=== PATIENT | female | born 1980 | race Caucasian/White ===

== ENCOUNTER 2019-12-08 09:50 | Outpatient (REF) | payer OTHER, SELFPAY ==
--- NOTE | 2019-12-08 | US_ITS ---
EXAMINATION: ULTRASOUND RENAL BILATERAL CLINICAL INFORMATION: Renal calculi, follow-up. COMPARISON: KUB dated 11/19/2019 and renal ultrasound dated 10/30/2019. TECHNIQUE: Multiple 2-D grayscale and color Doppler ultrasound images of the kidneys were obtained. FINDINGS: Right kidney: 11.4 cm. No nephrolithiasis or hydronephrosis. Left: 11.6 cm. An upper pole anechoic cyst measures 0.8 cm. An interpolar echogenic focus measures a 0.4 cm. No hydronephrosis. IMPRESSION: 1. Previously seen right intrarenal calculi are no longer visualized. No hydronephrosis. 2. Nonobstructing interpolar left intrarenal calculus was not seen previously. Small left upper pole cyst demonstrates benign features without significant change.
== END 2019-12-08 09:51 | disposition home or self-care (01) ==
LOC: HO.HMGCX 09:50
PROVIDERS: PCP Internal Medicine; Visit Provider Urology
DX: N20.0 Calculus of kidney (principal)
CPT/HCPCS: 76775

== ENCOUNTER 2020-06-17 15:34 | Outpatient (REF) | payer OTHER, SELFPAY ==
--- NOTE | ~2020-06-17 | US_ITS ---
EXAMINATION: US RETROPERITONEAL LIMITED (RENAL ONLY) CLINICAL INFORMATION: Calculus of kidney. COMPARISON: Renal ultrasound 12/08/2019 and 10/30/2019. KUB 02/18/2020 and 04/23/2019. CT abdomen and pelvis 04/04/2019. TECHNIQUE: Real-time imaging of the kidneys. FINDINGS: RIGHT KIDNEY: There is mild right renal hydronephrosis. 12.6 x 5.2 x 6.6 cm (SAG x AP x TRV). The kidney is normal in size, contour, and echogenicity. Renal cortical thickness is normal. No focal parenchymal lesions. Echogenic foci likely nonobstructing stones in the one in the lower pole measure up to 4 mm, middle pole 3 mm. LEFT KIDNEY: 12.5 x 5.9 x 6.3 cm (SAG x AP x TRV). The kidney is normal in size, contour, and echogenicity. Renal cortical thickness is normal. No hydronephrosis. Multiple echogenic structures likely nonobstructing stones measuring up to 1 cm, 0.4 cm, 0.3 cm. US/US renal BI IMPRESSION: Mild right renal hydronephrosis. Bilateral echogenic foci likely nonobstructing stones..
== END 2020-06-17 15:35 | disposition home or self-care (01) ==
LOC: HO.HMGCX 15:34
PROVIDERS: PCP Internal Medicine; Visit Provider Urology
DX: N20.0 Calculus of kidney (principal)
CPT/HCPCS: 76775

== ENCOUNTER → 2020-06-29 15:19 | Outpatient (BNVA) | payer OTHER, SELFPAY | PROVIDERS: PCP Internal Medicine; Visit Provider Urology ==

== ENCOUNTER 2021-07-12 08:32 | Outpatient (REF) | payer OTHER, SELFPAY ==
--- NOTE | ~2021-07-12 | US_ITS ---
EXAMINATION: US RETROPERITONEAL LIMITED (RENAL ONLY) CLINICAL INFORMATION: Calculus of kidney. COMPARISON: Renal ultrasound 06/17/2020, renal ultrasound 12/08/2019, x-ray abdomen 11/19/2019, CT abdomen and pelvis 04/04/2019. TECHNIQUE: Real-time imaging of the kidneys. FINDINGS: RIGHT KIDNEY: 10.8 x 6.0 x 5.7 cm (SAG x AP x TRV). The kidney is normal in size, contour, and echogenicity. Renal cortical thickness is normal. No renal calculi or focal parenchymal lesions. There are multiple echogenic foci seen. No obvious stone. There is mild hydronephrosis seen. LEFT KIDNEY: 12.5 x 6.3 x 6.0 cm (SAG x AP x TRV). The kidney is normal in size, contour, and echogenicity. Renal cortical thickness is normal. There is anechoic cyst in the upper pole measuring 0.54 x 0.61 x 0.77 cm. There are 2 echogenic stones in midpole measuring 0.5 cm 0.3 x 0.71 cm and 0.28 x 0.21 x 0.37 cm. There is mild hydronephrosis seen. US/US renal BI IMPRESSION: At least 2 echogenic stones in the midpole left kidney. There is mild hydronephrosis. Small echogenic foci in the right kidney with mild hydronephrosis. Small cyst upper pole left kidney.
== END 2021-07-12 08:33 | disposition home or self-care (01) ==
LOC: HO.HMGCX 08:32
PROVIDERS: Visit Provider Urology
DX: N20.0 Calculus of kidney (principal)
CPT/HCPCS: 76775

== ENCOUNTER → 2021-08-09 15:06 | Outpatient (BNVA) | payer OTHER, SELFPAY | PROVIDERS: PCP Internal Medicine | DX: Z13.9 Encounter for screening, unspecified (principal); N20.0 Calculus of kidney ==

== ENCOUNTER 2021-08-11 08:44 | Outpatient (REF) | payer OTHER, SELFPAY | END 2021-08-11 08:45 | disposition home or self-care (01) | LOC: HO.HMGCLDS 08:44 | PROVIDERS: PCP Internal Medicine | DX: Z13.89 Encounter for screening for other disorder (principal) ==

== ENCOUNTER 2021-08-27 09:22 | Outpatient (REF) | payer OTHER, SELFPAY ==
[2021-08-31 15:06] LABS: Vitamin D 25-OH, D2 <4 ng/mL; Vitamin D 25-OH, D3 11 ng/mL; Vitamin D 25-OH, Total 11 ng/mL (30-100)
[2021-09-02 16:17] LABS: Parathyroid Hormone Related Pr 10 pg/mL (11-20)
== END 2021-08-27 09:23 | disposition home or self-care (01) ==
LOC: HO.LAB 09:22
PROVIDERS: PCP Internal Medicine
DX: N20.0 Calculus of kidney (principal)
CPT/HCPCS: 36415; 82306; 82310; 83519

== ENCOUNTER 2022-03-15 13:32 | Outpatient (REF) | payer BC, SELFPAY | END 2022-03-15 13:33 | disposition home or self-care (01) | LOC: HO.LAB 13:32 | PROVIDERS: PCP Internal Medicine; Visit Provider Nurse Practitioner Family | DX: N39.0 Urinary tract infection, site not specified (principal); N20.0 Calculus of kidney | CPT/HCPCS: 87086 ==

== ENCOUNTER 2022-04-25 08:34 | Outpatient (REF) | payer BC, SELFPAY ==
--- NOTE | ~2022-04-25 | US_ITS ---
EXAMINATION: US RETROPERITONEAL LIMITED (RENAL ONLY) CLINICAL INFORMATION: Calculus of kidney. COMPARISON: Renal ultrasound 07/12/2021 and 06/17/2020. X-ray KUB 11/19/2019 and 04/23/2019. CT abdomen and pelvis 04/04/2019. TECHNIQUE: Real-time imaging of the kidneys. FINDINGS: RIGHT KIDNEY: 11.4 x 6.0 x 5.4 cm (SAG x AP x TRV). The kidney is normal in size, contour, and echogenicity. Renal cortical thickness is normal. No calculi or focal parenchymal lesions. No hydronephrosis. Mild right hydronephrosis seen previously is not present. LEFT KIDNEY: 12.7 x 6.0 x 6.0 cm (SAG x AP x TRV). The kidney is normal in size, contour, and echogenicity. Renal cortical thickness is normal. Three echogenic foci are present in the mid kidney measuring from 4 to 7 mm in size consistent with nonobstructing calculi. There is however, some mild pelvocaliectasis present but the etiology is not ascertained. US/US renal BI IMPRESSION: 1. Left-sided renal calculi. 2. Mild left-sided pelvocaliectasis.
== END 2022-04-25 08:35 | disposition home or self-care (01) ==
LOC: HO.HMGCX 08:34
PROVIDERS: PCP Internal Medicine; Visit Provider Nurse Practitioner Family
DX: N20.0 Calculus of kidney (principal)
CPT/HCPCS: 76775

== ENCOUNTER → 2022-05-17 10:35 | Outpatient (BNVA) | payer BC, SELFPAY | PROVIDERS: PCP Internal Medicine; Visit Provider Nurse Practitioner Family | DX: N20.0 Calculus of kidney (principal) | CPT/HCPCS: 51798 ==

== ENCOUNTER 2022-10-30 08:34 | Outpatient (REF) | payer BC, SELFPAY ==
--- NOTE | ~2022-10-30 | US_ITS ---
EXAMINATION: US RETROPERITONEAL LIMITED (RENAL ONLY) CLINICAL INFORMATION: Calculus of kidney. COMPARISON: Ultrasound retroperitoneal limited (renal only) 04/25/2022 and 07/12/2021. X-ray abdomen KUB 11/19/2019 and 04/23/2019. CT abdomen and pelvis without contrast 04/04/2019. TECHNIQUE: Real-time imaging of the kidneys. Limited visualization due to bowel gas. FINDINGS: RIGHT KIDNEY: 11.2 x 5.4 x 6.7 cm (SAG x AP x TRV). Lower pole 0.4 cm and upper pole 0.4 cm renal calculi. Mild fullness right renal collecting system. Renal cortical thickness is normal. Limited visualization. LEFT KIDNEY: 13.0 x 6.5 x 5.8 cm (SAG x AP x TRV). Left renal 0.6 cm mid pole, 0.6 cm midpole and 0.3 cm lower pole calculi. Redemonstration of mild left pelvocaliectasis. Previously identified left renal upper pole cyst is not identified today, although visualization is limited due to bowel gas. US/US renal BI IMPRESSION: 1. Right renal calculi. Mild fullness right renal collecting system. 2. Redemonstration of mild fullness left renal collecting system. Left renal calculi again seen.
== END 2022-10-30 08:35 | disposition home or self-care (01) ==
LOC: HO.HMGCX 08:34
PROVIDERS: PCP Internal Medicine; Visit Provider Nurse Practitioner Family
DX: N20.0 Calculus of kidney (principal)
CPT/HCPCS: 76775

== ENCOUNTER 2022-11-16 14:33 | Outpatient (AMB) | payer BC, SELFPAY ==
--- NOTE | 2022-11-16 14:37 | MHC.OFFVIS ---
Intake Intake Visit Reasons: Renal stone- follow up/US(set) Intake Note: Patient is present for follow up Renal Stone/Ultrasound (imaging 10/30/22) Urology Medications: none Blood thinner: none Char Filter Operator Helper Required: No Accompanied by: Self / Same As Patient Allergies coconut Allergy (Intermediate, Verified 11/16/22 15:16) DIFFICULTY BREATHING/HIVES coconut Allergy (Unknown, Uncoded 11/16/22 15:16) Unknown Medication List - Last Reconciled 11/16/22 by ISABELL Garza albuterol sulfate 90 mcg/actuation inhalation atorvastatin 10 mg PO DAILY escitalopram oxalate 5 mg PO DAILY ibuprofen 0 mg PO metformin 500 mg PO BID montelukast 10 mg PO DAILY norethindrone acetate mg PO sertraline 100 mg PO DAILY HPI HPI Comments History of Present Illness Details Tiny is a pleasant 42-year-old female patient of Dr. Love. She presents to the office today for a follow up of her nephrolthiasis. Recent renal imaging results reviewed with the patient today. Right kidney with lower pole 0.4 cm and upper pole 0.4 cm renal calculi. Left kidney with redemonstration of 0.6 cm mid pole, 0.6 cm midpole and 0.3 cm lower pole calculi. When asked patient is reporting intermittent left-sided flank pain however no CVA tenderness noted on exam. She discusses her upcoming total hysterectomy the end of December. In office urinalysis results reviewed with the patient today. She otherwise denies urinary urgency, incontinence, nocturia, hematuria, dysuria, foul smelling urine, changes to urinary stream, flank pain, fever, and or chills. Discussed given intermittent flank pain can continue with surveillance monitoring versus surgical intervention. Discussed at length risks and benefits of surveillance monitoring verses surgical intervention. At this time patient discusses given intermittent flank pain she would like to move forward with surgical procedure. Discussed at length left-sided cystoscopy, retrograde, ureteroscopy, possible lithotripsy/stone basketing and stent. All questions were answered. She otherwise offers no other issues or concerns at this time. [facility] Medical History (Updated 11/19/22 @ 13:03 by ISABELL Garza) Hydronephrosis with ureteropelvic junction (UPJ) obstruction Surgical History History of surgery Review of Systems Const Reports as per HPI Eyes Reports no additional complaints ENT Reports no additional complaints Card Reports no additional complaints Resp Reports no additional complaints GI Reports as per HPI Reports as per HPI Neuro Reports no additional complaints Physical Exam Const General: cooperative, healthy appearing, comfortable, no acute distress, well developed, alert and awake Nutritional Appearance: overweight Orientation/consciousness: patient oriented x3 Limitations: no limitations HEENT Head: Yes normal to inspection, Yes normocephalic and Yes atraumatic Ears: hearing grossly normal bilaterally Neck Neck: Yes normal visual inspection and Yes trachea midline Chest Chest palpation & inspection: normal inspection of the chest Resp Effort & Inspection: normal respiratory effort and able to speak in complete sentences Cardio Rate: regular rate General: Yes no CVA tenderness Back/Spine/Pelvis Back: no CVA tenderness Neuro General: patient oriented x3 Extrem General: Yes normal to inspection Psych Appearance: grossly normal and well kempt Mental Status: mental status grossly normal Speech and movement: Normal speech and movement present and Clear speech present Affect: normal affect Attitude: cooperative Thought process: Normal thought process present Thought content: Normal thought content present Insight: Good insight present (Psych) Judgement: Good judgement present (Psych) Results AMB Urinalysis, Automated UA Leukoctes 0 Familia/uL Last Edit by [employer] Irizarry on 11/16/22 14:57 UA Nitrite Negative Last Edit by Andersemere Juan C on 11/16/22 14:57 UA Urobilinogen 0.2 mg/dL Last Edit by [employer] Juan C on 11/16/22 14:57 UA Protein 0 mg/dL Last Edit by [employer] Irizarry on 11/16/22 14:57 UA pH 6.0 Last Edit by E[employer] on 11/16/22 14:57 UA Blood 10 Talon/uL Last Edit by [employer] Juan C on 11/16/22 14:57 UA Specific [place] 1.010 Last Edit by [employer] Juan C on 11/16/22 14:57 UA Ketone Negative Last Edit by [employer] Juan C on 11/16/22 14:57 UA Bilirubin 0 mg/dL Last Edit by [employer] Juan C on 11/16/22 14:57 UA Glucose 0 mg/dL Last Edit by Mabel Irizarry on 11/16/22 14:57 Results Reviewed Results Reviewed: Laboratory Last Values Urine pH (Auto) 6.0 11/16/22 14:41 Specific [place] (Auto) 1.010 11/16/22 14:41 Urine Protein (Auto) 0 mg/dL 11/16/22 14:41 Glucose (UA)(Auto) 0 mg/dL 11/16/22 14:41 Urine Ketones (Auto) Negative 11/16/22 14:41 Urine Blood (Auto) 10 Talon/uL 11/16/22 14:41 Urine Nitrite (Auto) Negative 11/16/22 14:41 Urine Bilirubin (Auto) 0 mg/dL 11/16/22 14:41 Urine Urobilinogen (Auto) 0.2 mg/dL 11/16/22 14:41 Leukocyte Esterase (Auto) 0 Familia/uL 11/16/22 14:41 Date of Service: 10/30/22 EXAMINATION: US RETROPERITONEAL LIMITED (RENAL ONLY) FINDINGS: RIGHT KIDNEY: 11.2 x 5.4 x 6.7 cm (SAG x AP x TRV). Lower pole 0.4 cm and upper pole 0.4 cm renal calculi. Mild fullness right renal collecting system. Renal cortical thickness is normal. Limited visualization. LEFT KIDNEY: 13.0 x 6.5 x 5.8 cm (SAG x AP x TRV). Left renal 0.6 cm mid pole, 0.6 cm midpole and 0.3 cm lower pole calculi. Redemonstration of mild left pelvocaliectasis. Previously identified left renal upper pole cyst is not identified today, although visualization is limited due to bowel gas. IMPRESSION: 1. Right renal calculi. Mild fullness right renal collecting system. 2. Redemonstration of mild fullness left renal collecting system. Left renal calculi again seen. Assessment & Plan Assessment & Plan (1) Nephrolithiasis: Code(s): N20.0 - Calculus of kidney Plan: Ureteroscopy We discussed the nature of the decision and reasonable alternatives for performing ureteroscopy. Options such as medical therapy were discussed. Interventions include chemical dissolution, ESWL, ureteroscopy with laser lithotripsy and stent placement, PCNL. The relative uncertainties and benefits related to each alternate procedure were adequately discussed. General surgical risks including, but not limited to - pain, bleeding, infection, myocardial infarction, pulmonary embolus, deep vein thrombosis and cerebrovascular accident which may result in further hospitalization were discussed.? Full disclosure of the procedure as well as all major risks, benefits and complications were discussed including but not limited to damage to the urethra, bladder and kidney infection, damage to the ureter, stent migration or malposition, scarring to the renal pelvis, remnant stone fragments, subsequent stone passage with need for secondary procedures. The overall secondary procedure rate is approximately 10-15%.? The overall clearance rate is approximately 90-95%. Success of the procedure in the short-term does not necessarily guarantee that long-term success will be maintained. Suitable follow up will need to be maintained. The patient showed understanding of discussion and wishes to proceed with - cystoscopy, retrograde, ureteroscopy, possible lithotripsy/stone basketing and stent on the left side Plan In office urinalysis results reviewed with the patient today; as noted above. Recent renal imaging results reviewed with the patient today; as noted above. Discussed at length surveillance monitoring versus surgical intervention At this time patient wishes to proceed with surgical intervention given intermittent recurrent left-sided flank pain. Will schedule for left-sided - cystoscopy, retrograde, ureteroscopy, possible lithotripsy/stone basketing and stent. All questions were answered. Discussed, educated, encouraged on the importance of drinking plenty of water daily. Follow-up status post surgical procedure per Dr. Lynch's orders; or sooner with any issues, concerns, and or questions. Orders: Orders AMB Urinalysis Automated 11/16/22 Z13.9 - Encounter for screening, unspecified Patient Instructions: The patient had an opportunity to ask questions regarding the treatment plan. All questions were answered. Physical exam, labs, and imaging were discussed and reviewed in detail. As well as risks, benefits, and discussion of treatment choices. No major barriers to understanding were identified. The patient expressed understanding and agreement with the above treatment plan. The patient was made aware they should contact our office by phone for worsening of their current condition, the appearance of new symptoms, or with any questions or concerns. Compliance is encouraged with any medications and follow up testing that is ordered. It is a privilege to be allowed the opportunity to participate in? your urological care.? Again, if you have any questions or concerns If you have any questions or concerns please do not hesitate to contact me. The office is [phone]. This note is constructed using voice recognition software. While every effort has been made to ensure accuracy child support case officer errors may have been included. Yours sincerely, RONDA Garza-DALIA Coding Level of Care Code Est Pt Level 4 (99496) Diagnoses Nephrolithiasis N20.0
== END 2022-11-16 15:13 | disposition home or self-care (01) ==
PROVIDERS: PCP Internal Medicine; Visit Provider Nurse Practitioner Family
DX: N20.0 Calculus of kidney (principal)
CPT/HCPCS: 99214

== ENCOUNTER → 2022-11-16 14:33 | Outpatient (BNVA) | payer BC, SELFPAY | PROVIDERS: PCP Internal Medicine; Visit Provider Nurse Practitioner Family | DX: N20.0 Calculus of kidney (principal) | CPT/HCPCS: 81003 ==

== ENCOUNTER 2023-02-05 14:49 | Outpatient (AMB) | payer BC, OTHER, SELFPAY ==
--- NOTE | 2023-02-05 14:50 | MHC.OFFVIS ---
Intake Intake Visit Reasons: follow up after hysterectomy Intake Note: Patient is present for follow up to discuss surgery Urology Medications: none Blood thinner: none Needle Loom Operator Helper Required: No Accompanied by: Self / Same As Patient Allergies coconut Allergy (Intermediate, Verified 02/05/23 14:54) DIFFICULTY BREATHING/HIVES coconut Allergy (Unknown, Uncoded 02/05/23 14:54) Unknown Medication List - Last Reconciled 02/05/23 by ISABELL Garza albuterol sulfate 90 mcg/actuation inhalation atorvastatin 10 mg PO DAILY escitalopram oxalate 5 mg PO DAILY ibuprofen 0 mg PO lisinopril 20 mg PO DAILY metformin 500 mg PO BID montelukast 10 mg PO DAILY sertraline 100 mg PO DAILY HPI HPI Comments History of Present Illness Details Tiny is a pleasant 43-year-old female patient of Dr. Love. She is being follow-up on today via telehealth for her history of nephrolithiasis. In discussion with the patient today she reports to be doing and feeling well. She reports having recently recovered from her hysterectomy. When asked she continues to report intermittent bilateral flank pain left side greater than right. Previous renal imaging from 10/25 noting right kidney with lower pole 0.4 cm and upper pole 0.4 cm renal calculi. Left kidney with redemonstration of 0.6 cm mid pole, 0.6 cm midpole and 0.3 cm lower pole calculi. Discussed obtaining CT KUB for further assessment evaluation. She otherwise denies urinary urgency, incontinence, nocturia, hematuria, dysuria, foul smelling urine, changes to urinary stream, flank pain, fever, and or chills. Discussed possible surgical intervention versus surveillance monitoring however will obtain imaging for further assessment evaluation. [facility] Medical History Hydronephrosis with ureteropelvic junction (UPJ) obstruction Surgical History (Updated 02/05/23 @ 15:02 by ISABELL Garza) H/O: hysterectomy History of surgery Review of Systems Const Reports as per HPI Eyes Reports no additional complaints ENT Reports no additional complaints Card Reports no additional complaints Resp Reports no additional complaints GI Reports as per HPI Reports as per HPI Neuro Reports no additional complaints Physical Exam Const General: cooperative Resp Effort & Inspection: able to speak in complete sentences Psych Speech and movement: Clear speech present Attitude: cooperative Thought process: Normal thought process present Thought content: Normal thought content present Insight: Good insight present (Psych) Judgement: Good judgement present (Psych) Assessment & Plan Assessment & Plan (1) Nephrolithiasis: Code(s): N20.0 - Calculus of kidney (2) Flank pain: Code(s): R10.9 - Unspecified abdominal pain Plan Patient with a history of nephrolithiasis and continues with intermittent flank pain. Will obtain CT KUB for further assessment evaluation as previous imaging from 10/25. Discussed possible near future surgical intervention regarding nephrolithiasis however will await CT KUB results for further assessment evaluation. Educated, stress, and encouraged on the importance of drinking plenty of water daily. Follow-up in 2-4 weeks with imaging to be completed prior; or sooner with any issues, concerns, and or questions. Patient Instructions: The patient had an opportunity to ask questions regarding the treatment plan. All questions were answered. Physical exam, labs, and imaging were discussed and reviewed in detail. As well as risks, benefits, and discussion of treatment choices. No major barriers to understanding were identified. The patient expressed understanding and agreement with the above treatment plan. The patient was made aware they should contact our office by phone for worsening of their current condition, the appearance of new symptoms, or with any questions or concerns. Compliance is encouraged with any medications and follow up testing that is ordered. It is a privilege to be allowed the opportunity to participate in? your urological care.? Again, if you have any questions or concerns If you have any questions or concerns please do not hesitate to contact me. The office is [phone]. This note is constructed using voice recognition software. While every effort has been made to ensure accuracy boat driver errors may have been included. Yours sincerely, ELIEZER Garza Telehealth Telehealth Location of provider rendering services: practice address Location of patient: address on file Patient Identification confirmed using: Name, : Yes Telehealth method: voice only Patient verbally consented to treatment: Yes Patient verbally consented to billing insurance company: Yes Patient informed of any privacy concerns related to visit: Yes Minutes spent on Phone/Video with Pt.: 15 Coding Level of Care Code Tele Est Pt Level 3 (80287) Diagnoses Nephrolithiasis N20.0 Flank pain R10.9
== END 2023-02-05 15:10 | disposition home or self-care (01) ==
LOC: HO.HUSH 14:49
PROVIDERS: PCP Internal Medicine; Visit Provider Nurse Practitioner Family
DX: N20.0 Calculus of kidney (principal); R10.9 Unspecified abdominal pain
CPT/HCPCS: 99442

== ENCOUNTER → 2023-02-05 14:49 | Outpatient (BNVA) | payer BC, SELFPAY | PROVIDERS: PCP Internal Medicine; Visit Provider Nurse Practitioner Family ==

== ENCOUNTER 2023-03-13 07:54 | Outpatient (REF) | payer BC, OTHER, SELFPAY ==
--- NOTE | ~2023-03-13 | CT_ITS ---
EXAMINATION: CT ABDOMEN AND PELVIS WITHOUT CONTRAST CLINICAL INFORMATION: Renal calculus COMPARISON: CT of 04/04/2019 and renal ultrasound of 10/22/2022 TECHNIQUE: Multidetector volumetric imaging was performed of the abdomen and pelvis without contrast. Sagittal and coronal reformatted images were obtained on the technologist's workstation. This CT examination was performed using dose optimization techniques as appropriate, variously including the following: *Automated exposure control *Adjustment of mA and/or kV according to patient size (this includes techniques or standardized protocols for targeted exams where dose is matched to indication/reason for exam; i.e. extremities or head) *Use of iterative reconstruction technique DLP: 1120 mGy-cm FINDINGS: LUNG BASES: The visualized lung bases are unremarkable. LIVER, GALLBLADDER, AND BILIARY TREE: The liver is diffusely low in density and moderately enlarged measuring at least 20 cm long consistent with steatosis. No biliary ductal dilatation or parenchymal mass is evident. The gallbladder is unremarkable with no evidence of radiopaque gallstones, gallbladder wall thickening, or obvious pericholecystic inflammatory changes. PANCREAS: Unremarkable SPLEEN: Mildly enlarged measuring 14.7 cm ADRENAL GLANDS: Unremarkable KIDNEYS AND URETERS: There are several adjacent small calculi in the left renal lower pole collecting system, each measuring approximately 4 mm. A 1 mm nonobstructing calculus is evident in the right renal midpole. The previously seen right ureteropelvic junction obstructing calculus is no longer visualized. There is no acute acute obstructive uropathy. The ureters are collapsed. BLADDER: Unremarkable GASTROINTESTINAL TRACT: There is a small sliding hiatal hernia. The small and large bowel are unremarkable. The appendix is unremarkable. ABDOMINAL WALL: A small fat-containing ventral abdominal wall hernia is present. LYMPH NODES: Normal VASCULAR: Unremarkable PELVIC VISCERA: Unremarkable OSSEOUS STRUCTURES: Unremarkable CT/CT kidney stone IMPRESSION: 1. Several nonobstructing left renal mid pole calculi. Previously seen right obstructing ureteral pelvic junction calculus is no longer evident. 2. Hepatosplenomegaly and marked hepatic steatosis. Fleischner guidelines were followed.
== END 2023-03-13 07:55 | disposition home or self-care (01) ==
LOC: HO.CT 07:54
PROVIDERS: PCP Internal Medicine; Visit Provider Nurse Practitioner Family
DX: N20.0 Calculus of kidney (principal)
CPT/HCPCS: 74176

== ENCOUNTER 2023-04-06 08:43 | Outpatient (AMB) | payer BC, OTHER, SELFPAY ==
--- NOTE | 2023-04-06 09:03 | MHC.OFFVIS ---
Intake Intake Visit Reasons: Follow up CT Scan Kidney Stone(set) Intake Note: Patient presents for tele visit follow up Kidney Stone and CT Scan Results Imagin03/13/23 Urology Medications: none Blood Thinner: none Counselling Psychologist Required: No Accompanied by: Self / Same As Patient Allergies coconut Allergy (Intermediate, Verified 04/07/23 20:56) DIFFICULTY BREATHING/HIVES coconut Allergy (Unknown, Uncoded 04/07/23 20:56) Unknown Medication List - Last Reconciled 04/07/23 by ISABELL Garza albuterol sulfate 90 mcg/actuation inhalation atorvastatin 10 mg PO DAILY escitalopram oxalate 5 mg PO DAILY ibuprofen 0 mg PO lisinopril 20 mg PO DAILY metformin 500 mg PO BID montelukast 10 mg PO DAILY pyridoxine (vitamin B6) 100 mg PO DAILY 90 days sertraline 100 mg PO DAILY HPI HPI Comments History of Present Illness Details Tiny is a pleasant 43-year-old female patient of Dr. Love. She is being follow-up on today via telehealth for her history of nephrolithiasis. In discussion with the patient today she reports to be doing and feeling well. Of note, patient was seen approximately 1 month ago for longstanding history of nephrolithiasis at which time a CT KUB was ordered for further assessment evaluation. These results reviewed with the patient today. There are several small calculi in the left renal pole each measuring approximately 4 mm. A 1 mm nonobstructing calculus is in the right mid pole. Previously seen right UVJ obstruction calculus is no longer visualized. There is no acute obstructive uropathy. The bladder is unremarkable. Discussed at length further treatment options with surgical intervention versus surveillance monitoring. Patient currently denies any bothersome urinary issues or concerns. She denies urinary urgency, incontinence, nocturia, hematuria, dysuria, foul smelling urine, changes to urinary stream, flank pain, fever, and or chills. She discusses at length her recovery from her recent hysterectomy. She otherwise offers no other issues or concerns at time. COUNTS INCLUDE 234 BEDS AT THE [facility] Medical History Hydronephrosis with ureteropelvic junction (UPJ) obstruction Surgical History H/O: hysterectomy History of surgery Review of Systems Const Reports as per HPI Eyes Reports no additional complaints ENT Reports no additional complaints Card Reports no additional complaints Resp Reports no additional complaints GI Reports as per HPI Reports as per HPI Neuro Reports no additional complaints Physical Exam Const General: cooperative Orientation/consciousness: patient oriented x3 Resp Effort & Inspection: able to speak in complete sentences Neuro General: patient oriented x3 Psych Speech and movement: Clear speech present Attitude: cooperative Thought process: Normal thought process present Thought content: Normal thought content present Insight: Fair insight present (Psych) Judgement: Fair judgement present (Psych) Results Reviewed Results Reviewed: Date of Service: 03/13/23 EXAMINATION: CT ABDOMEN AND PELVIS WITHOUT CONTRAST FINDINGS: LUNG BASES: The visualized lung bases are unremarkable. LIVER, GALLBLADDER, AND BILIARY TREE: The liver is diffusely low in density and moderately enlarged measuring at least 20 cm long consistent with steatosis. No biliary ductal dilatation or parenchymal mass is evident. The gallbladder is unremarkable with no evidence of radiopaque gallstones, gallbladder wall thickening, or obvious pericholecystic inflammatory changes. PANCREAS: Unremarkable SPLEEN: Mildly enlarged measuring 14.7 cm ADRENAL GLANDS: Unremarkable KIDNEYS AND URETERS: There are several adjacent small calculi in the left renal lower pole collecting system, each measuring approximately 4 mm. A 1 mm nonobstructing calculus is evident in the right renal midpole. The previously seen right ureteropelvic junction obstructing calculus is no longer visualized. There is no acute acute obstructive uropathy. The ureters are collapsed. BLADDER: Unremarkable GASTROINTESTINAL TRACT: There is a small sliding hiatal hernia. The small and large bowel are unremarkable. The appendix is unremarkable. ABDOMINAL WALL: A small fat-containing ventral abdominal wall hernia is present. LYMPH NODES: Normal VASCULAR: Unremarkable PELVIC VISCERA: Unremarkable OSSEOUS STRUCTURES: Unremarkable IMPRESSION: 1. Several nonobstructing left renal mid pole calculi. Previously seen right obstructing ureteral pelvic junction calculus is no longer evident. 2. Hepatosplenomegaly and marked hepatic steatosis. Assessment & Plan Assessment & Plan (1) Nephrolithiasis: Code(s): N20.0 - Calculus of kidney Plan Recent CT KUB results reviewed with the patient today; as noted above. Patient currently denies any bothersome urinary issues or concerns. Discussed at length surveillance monitoring verses further surgical intervention regarding nonobstructing small renal calculi Discussed, educated, and stressed the importance of drinking plenty of water daily. Discussed adding 1 oz of lemon juice to water daily. Start vitamin B6 as discussed and prescribed. Will obtain renal ultrasound in 6 months. Discussed further metabolic workup with 24 hour urine collection and labs; however patient declines at this time would like to continue with surveillance monitoring. Follow-up in 6 months with imaging to be completed prior; or sooner with any issues, concerns, and or questions. Orders: Orders US renal BI 6 Months N20.0 - Calculus of kidney Medications: New pyridoxine (vitamin B6) 100 mg PO DAILY 90 days 90 tabs 1RF Patient Instructions: The patient had an opportunity to ask questions regarding the treatment plan. All questions were answered. Physical exam, labs, and imaging were discussed and reviewed in detail. As well as risks, benefits, and discussion of treatment choices. No major barriers to understanding were identified. The patient expressed understanding and agreement with the above treatment plan. The patient was made aware they should contact our office by phone for worsening of their current condition, the appearance of new symptoms, or with any questions or concerns. Compliance is encouraged with any medications and follow up testing that is ordered. It is a privilege to be allowed the opportunity to participate in? your urological care.? Again, if you have any questions or concerns If you have any questions or concerns please do not hesitate to contact me. The office is [phone]. This note is constructed using voice recognition software. While every effort has been made to ensure accuracy olive grader errors may have been included. Yours sincerely, [place] [facility] Location of provider rendering services: practice address Location of patient: address on file Patient Identification confirmed using: Name, : Yes Telehealth method: voice only Patient verbally consented to treatment: Yes Patient verbally consented to billing insurance company: Yes Patient informed of any privacy concerns related to visit: Yes Minutes spent on Phone/Video with Pt.: 20 Coding Level of Care Code Tele Est Pt Level 4 (39965) Diagnoses Nephrolithiasis N20.0
== END 2023-04-06 10:05 | disposition home or self-care (01) ==
PROVIDERS: PCP Internal Medicine; Visit Provider Nurse Practitioner Family
DX: N20.0 Calculus of kidney (principal)
CPT/HCPCS: 99442

== ENCOUNTER → 2023-04-06 08:43 | Outpatient (BNVA) | payer BC, SELFPAY | PROVIDERS: PCP Internal Medicine; Visit Provider Nurse Practitioner Family ==

== ENCOUNTER 2023-10-23 09:02 | Outpatient (REF) | payer BC, SELFPAY ==
--- NOTE | ~2023-10-23 | US_ITS ---
EXAMINATION: US RETROPERITONEAL COMPLETE (RENAL) CLINICAL INFORMATION: Calculus of kidney. COMPARISON: CT stone study 03/13/2023. TECHNIQUE: Real-time imaging of the kidneys . FINDINGS: RIGHT KIDNEY: 11.6 x 5.7 x 4.7 cm (SAG x AP x TRV). The kidney is normal in size, contour, and echogenicity. Renal cortical thickness is normal. No focal parenchymal lesions. There is a 4 x 3 x 5 mm mid renal echogenic focus with twinkle artifact consistent with a nonobstructing calculus. No hydronephrosis. LEFT KIDNEY: 12.9 x 5.8 x 5.8 cm (SAG x AP x TRV). The kidney is normal in size, contour, and echogenicity. Renal cortical thickness is normal. No focal parenchymal lesions. There is a mid renal echogenic focus measuring 5 mm and an upper pole 3 mm echogenic focus both with twinkle artifact consistent with nonobstructing calculi. No hydronephrosis. US/US renal BI IMPRESSION: Bilateral nonobstructing renal calculi. Electronically signed by: Gerardo Collier MD 11/06/2023 12:35 AM EDT
== END 2023-10-23 09:03 | disposition home or self-care (01) ==
LOC: HO.HMGCX 09:02
PROVIDERS: PCP Internal Medicine; Visit Provider Nurse Practitioner Family
DX: N20.0 Calculus of kidney (principal)
CPT/HCPCS: 76775

== ENCOUNTER 2023-11-13 14:09 | Outpatient (AMB) | payer BC, SELFPAY ==
--- NOTE | 2023-11-13 14:28 | A.OFFVIS_ITS ---
Intake Visit Reasons: 6M/FU Intake Note: Patient presents for tele visit follow up Kidney Stone and CT Scan Results Imagin10/23/23 Urology Medications: none Blood Thinner: none Chemic Mangler Required: No Accompanied by: Self / Same As Patient Allergies coconut Allergy (Intermediate, Verified 11/13/23 14:51) DIFFICULTY BREATHING/HIVES coconut Allergy (Unknown, Uncoded 11/13/23 14:51) Unknown Medication List - Last Reconciled 11/13/23 by ISABELL Garza albuterol sulfate 90 mcg/actuation inhalation atorvastatin 10 mg PO DAILY lisinopril 20 mg PO DAILY sertraline 100 mg PO DAILY HPI Comments Details: Tiny is a pleasant 43-year-old female patient of Dr. Love. She presents to the office today for follow-up of her nephrolithiasis. In discussion with the patient today she reports to be doing and feeling well. She discusses having followed up with her PCP and has recently changed her metformin to Jardiance for ongoing GI issues she had been experiencing. She currently denies any bothersome urinary issues or concerns. Recent renal imaging results reviewed with the patient today. Bilateral kidneys with no lesions or hydronephrosis. Right kidney with 5 mm mid renal nonobstructing calculus. Left kidney with 5 mm upper pole and 3 mm mid renal echogenic focus consistent with nonobstructing renal calculi. Discussed at length potential causes of nephrolithiasis. In office urinalysis results reviewed with the patient today. She denies urinary urgency, incontinence, nocturia, hematuria, dysuria, foul smelling urine, changes to urinary stream, flank pain, fever, and or chills. She otherwise offers no other issues or concerns at time. [facility] Medical History Hydronephrosis with ureteropelvic junction (UPJ) obstruction Surgical History H/O: hysterectomy History of surgery Review of Systems Const Reports as per HPI Eyes Reports no additional complaints ENT Reports no additional complaints Card Reports no additional complaints Resp Reports no additional complaints GI Reports as per HPI Reports as per HPI Neuro Reports no additional complaints Physical Exam Const General: cooperative, healthy appearing, comfortable, no acute distress, well developed, alert and awake Nutritional Appearance: overweight Orientation/consciousness: patient oriented x3 Limitations: no limitations HEENT Head: Yes normal to inspection, Yes normocephalic and Yes atraumatic Ears: hearing grossly normal bilaterally Neck Neck: Yes normal visual inspection and Yes trachea midline Chest Chest palpation & inspection: normal inspection of the chest Resp Effort & Inspection: normal respiratory effort and able to speak in complete sentences Cardio Rate: regular rate General: Yes no CVA tenderness Back/Spine/Pelvis Back: no CVA tenderness Neuro General: patient oriented x3 Extrem General: Yes normal to inspection Psych Appearance: grossly normal and well kempt Mental Status: mental status grossly normal Speech and movement: Normal speech and movement present and Clear speech present Affect: normal affect Attitude: cooperative Thought process: Normal thought process present Thought content: Normal thought content present Insight: Fair insight present (Psych) Judgement: Fair judgement present (Psych) Results AMB Urinalysis, Automated UA Leukoctes 0 Familia/uL Last Edit by [facility] on 11/13/23 15:04 UA Nitrite Last Edit by [facility] on 11/13/23 15:04 UA Urobilinogen 0.2 mg/dL Last Edit by [facility] on 11/13/23 15:04 UA Protein 0 mg/dL Last Edit by [facility] on 11/13/23 15:04 UA pH 6.0 Last Edit by [facility] on 11/13/23 15:04 UA Blood 0 Talon/uL Last Edit by [facility] on 11/13/23 15:04 UA Specific Roy 1.015 Last Edit by [facility] on 11/13/23 15:04 UA Ketone Last Edit by [facility] on 11/13/23 15:04 UA Bilirubin 0 mg/dL Last Edit by [facility] on 11/13/23 15:04 UA Glucose 1000 mg/dL Last Edit by [facility] on 11/13/23 15:04 Results Reviewed Results Reviewed: Laboratory Last Values Urine pH (Auto) 6.0 11/13/23 14:58 Specific Roy (Auto) 1.015 11/13/23 14:58 Urine Protein (Auto) 0 mg/dL 11/13/23 14:58 Glucose (UA)(Auto) 1000 mg/dL 11/13/23 14:58 Urine Blood (Auto) 0 Talon/uL 11/13/23 14:58 Urine Bilirubin (Auto) 0 mg/dL 11/13/23 14:58 Urine Urobilinogen (Auto) 0.2 mg/dL 11/13/23 14:58 Leukocyte Esterase (Auto) 0 Familia/uL 11/13/23 14:58 Date of Service: 10/23/23 EXAMINATION: US RETROPERITONEAL COMPLETE (RENAL) FINDINGS: RIGHT KIDNEY: 11.6 x 5.7 x 4.7 cm (SAG x AP x TRV). The kidney is normal in size, contour, and echogenicity. Renal cortical thickness is normal. No focal parenchymal lesions. There is a 4 x 3 x 5 mm mid renal echogenic focus with twinkle artifact consistent with a nonobstructing calculus. No hydronephrosis. LEFT KIDNEY: 12.9 x 5.8 x 5.8 cm (SAG x AP x TRV). The kidney is normal in size, contour, and echogenicity. Renal cortical thickness is normal. No focal parenchymal lesions. There is a mid renal echogenic focus measuring 5 mm and an upper pole 3 mm echogenic focus both with twinkle artifact consistent with nonobstructing calculi. No hydronephrosis. IMPRESSION: Bilateral nonobstructing renal calculi. Assessment & Plan Assessment & Plan (1) Nephrolithiasis: Code(s): N20.0 - Calculus of kidney Category: Medical Plan In office urinalysis results reviewed with the patient today; as noted above. Recent renal imaging results reviewed with the patient today; as noted above. She currently denies any bothersome urinary issues or concerns She reports be happy with current voiding parameters. Discussed, educated, and stressed the importance of adequate hydration relation to nephrolithiasis as well as overall health and well-being. Discussed adding 1 oz of lemon juice to water daily. Discussed possible near future vitamin B6. Discussed at length potential causes of nephrolithiasis Discussed metabolic workup with 24 hour urine collection and labs Will obtain renal ultrasound in 6 months. Follow-up in 6 months with imaging to be completed prior; or sooner with any issues, concerns, and or questions. Orders: Orders US renal BI 6 Months N20.0 - Calculus of kidney AMB Urinalysis Automated Today Z13.9 - Encounter for screening, unspecified Patient Instructions: The patient had an opportunity to ask questions regarding the treatment plan. All questions were answered. Physical exam, labs, and imaging were discussed and reviewed in detail. As well as risks, benefits, and discussion of treatment choices. No major barriers to understanding were identified. The patient expressed understanding and agreement with the above treatment plan. The patient was made aware they should contact our office by phone for worsening of their current condition, the appearance of new symptoms, or with any questions or concerns. Compliance is encouraged with any medications and follow up testing that is ordered. It is a privilege to be allowed the opportunity to participate in? your urological care.? Again, if you have any questions or concerns If you have any questions or concerns please do not hesitate to contact me. The office is [phone]. This note is constructed using voice recognition software. While every effort has been made to ensure accuracy cloth worker errors may have been included. Yours sincerely, ISABELL Garza Coding Level of Care Code Est Pt Level 3 (38349) Diagnoses Nephrolithiasis N20.0
--- NOTE | 2023-11-13 14:57 | MHC.OFFVIS ---
Intake Visit Reasons: 6M/FU Allergies coconut Allergy (Intermediate, Verified 11/13/23 14:51) DIFFICULTY BREATHING/HIVES coconut Allergy (Unknown, Uncoded 11/13/23 14:51) Unknown Medication List - Last Reconciled 11/13/23 by ISABELL Garza albuterol sulfate 90 mcg/actuation inhalation atorvastatin 10 mg PO DAILY lisinopril 20 mg PO DAILY sertraline 100 mg PO DAILY HPI Comments Details: Tiny is a pleasant 43-year-old female patient of Dr. Love. She presents to the office today for follow-up of her nephrolithiasis. In discussion with the patient today she reports to be doing and feeling well. She discusses having followed up with her PCP and has recently changed her metformin to Jardiance for ongoing GI issues she had been experiencing. She currently denies any bothersome urinary issues or concerns. Recent renal imaging results reviewed with the patient today. Bilateral kidneys with no lesions or hydronephrosis. Right kidney with 5 mm mid renal nonobstructing calculus. Left kidney with 5 mm upper pole and 3 mm mid renal echogenic focus consistent with nonobstructing renal calculi. Discussed at length potential causes of nephrolithiasis. In office urinalysis results reviewed with the patient today. She denies urinary urgency, incontinence, nocturia, hematuria, dysuria, foul smelling urine, changes to urinary stream, flank pain, fever, and or chills. She otherwise offers no other issues or concerns at time. [facility] Medical History Hydronephrosis with ureteropelvic junction (UPJ) obstruction Surgical History H/O: hysterectomy History of surgery Review of Systems Const Reports as per HPI Eyes Reports no additional complaints ENT Reports no additional complaints Card Reports no additional complaints Resp Reports no additional complaints GI Reports as per HPI Reports as per HPI Neuro Reports no additional complaints Physical Exam Const General: cooperative, healthy appearing, comfortable, no acute distress, well developed, alert and awake Nutritional Appearance: overweight Orientation/consciousness: patient oriented x3 Limitations: no limitations HEENT Head: Yes normal to inspection, Yes normocephalic and Yes atraumatic Ears: hearing grossly normal bilaterally Neck Neck: Yes normal visual inspection and Yes trachea midline Chest Chest palpation & inspection: normal inspection of the chest Resp Effort & Inspection: normal respiratory effort and able to speak in complete sentences Cardio Rate: regular rate General: Yes no CVA tenderness Back/Spine/Pelvis Back: no CVA tenderness Neuro General: patient oriented x3 Extrem General: Yes normal to inspection Psych Appearance: grossly normal and well kempt Mental Status: mental status grossly normal Speech and movement: Normal speech and movement present and Clear speech present Affect: normal affect Attitude: cooperative Thought process: Normal thought process present Thought content: Normal thought content present Insight: Fair insight present (Psych) Judgement: Fair judgement present (Psych) Results Reviewed Results Reviewed: Date of Service: 10/23/23 EXAMINATION: US RETROPERITONEAL COMPLETE (RENAL) FINDINGS: RIGHT KIDNEY: 11.6 x 5.7 x 4.7 cm (SAG x AP x TRV). The kidney is normal in size, contour, and echogenicity. Renal cortical thickness is normal. No focal parenchymal lesions. There is a 4 x 3 x 5 mm mid renal echogenic focus with twinkle artifact consistent with a nonobstructing calculus. No hydronephrosis. LEFT KIDNEY: 12.9 x 5.8 x 5.8 cm (SAG x AP x TRV). The kidney is normal in size, contour, and echogenicity. Renal cortical thickness is normal. No focal parenchymal lesions. There is a mid renal echogenic focus measuring 5 mm and an upper pole 3 mm echogenic focus both with twinkle artifact consistent with nonobstructing calculi. No hydronephrosis. IMPRESSION: Bilateral nonobstructing renal calculi. Assessment & Plan Assessment & Plan (1) Nephrolithiasis: Code(s): N20.0 - Calculus of kidney Category: Medical Plan In office urinalysis results reviewed with the patient today; as noted above. Recent renal imaging results reviewed with the patient today; as noted above. She currently denies any bothersome urinary issues or concerns She reports be happy with current voiding parameters. Discussed, educated, and stressed the importance of adequate hydration relation to nephrolithiasis as well as overall health and well-being. Discussed adding 1 oz of lemon juice to water daily. Discussed possible near future vitamin B6. Discussed at length potential causes of nephrolithiasis Discussed metabolic workup with 24 hour urine collection and labs Will obtain renal ultrasound in 6 months. Follow-up in 6 months with imaging to be completed prior; or sooner with any issues, concerns, and or questions. Orders: Orders US renal BI 6 Months N20.0 - Calculus of kidney AMB Urinalysis Automated Today Z13.9 - Encounter for screening, unspecified Patient Instructions: The patient had an opportunity to ask questions regarding the treatment plan. All questions were answered. Physical exam, labs, and imaging were discussed and reviewed in detail. As well as risks, benefits, and discussion of treatment choices. No major barriers to understanding were identified. The patient expressed understanding and agreement with the above treatment plan. The patient was made aware they should contact our office by phone for worsening of their current condition, the appearance of new symptoms, or with any questions or concerns. Compliance is encouraged with any medications and follow up testing that is ordered. It is a privilege to be allowed the opportunity to participate in? your urological care.? Again, if you have any questions or concerns If you have any questions or concerns please do not hesitate to contact me. The office is [phone]. This note is constructed using voice recognition software. While every effort has been made to ensure accuracy transfer table operator helper errors may have been included. Yours sincerely, ISABELL Garza Coding Level of Care Code Est Pt Level 3 (87765) Diagnoses Nephrolithiasis N20.0
== END 2023-11-13 14:52 | disposition home or self-care (01) ==
PROVIDERS: PCP Internal Medicine; Visit Provider Nurse Practitioner Family
DX: N20.0 Calculus of kidney (principal); Z13.9 Encounter for screening, unspecified
CPT/HCPCS: 99213

== ENCOUNTER → 2023-11-13 14:09 | Outpatient (BNVA) | payer BC, SELFPAY | PROVIDERS: PCP Internal Medicine; Visit Provider Nurse Practitioner Family | DX: N20.0 Calculus of kidney (principal) | CPT/HCPCS: 81003 ==

== ENCOUNTER 2024-05-06 08:31 | Outpatient (REF) | payer BC, SELFPAY ==
--- NOTE | ~2024-05-06 | US_ITS ---
CLINICAL HISTORY: N20.0 - Calculus of kidney US Renal Comparison: None Findings: Right kidney normal size and echotexture, 11.7 cm length. Left kidney normal size and echotexture, 11.6 cm length. 4 mm calculus within the midportion of the right kidney. 5 mm calculus within the upper pole of the left kidney. 6 mm calculus within the midportion of the left kidney. Borderline dilatation of the bilateral renal collecting systems. Normal color Doppler bilaterally. IMPRESSION: 1. Borderline dilatation of the bilateral renal collecting systems. 2. Small nonobstructive calculi within the bilateral kidneys. This document has been electronically signed by: Anais Polk MD on 05/06/2024 17:15:23
--- OUTSIDE RECORDS SUMMARY | 2024-05-06 08:57 | XMS_ITS | Encounter Summary ---
Author Organization Formerly [facility] Address [address] [place], [place] [id number] Care Team Providers Care Electrical Logging Engineer Name Role Phone Steph Love MD Primary Care Provider [phone] Elizabeth Garzon MD Unavailable [phone] Encounter Details Date Type Department Care Team (Late st Contact Info) Description 02/16/2023 Scanned Document [facility] PRIMARY CARE SCAN Primary Care, Scan Social History Tobacco Use Types Packs/Day Years Used Date Smoking Tobacco: Never Smokeless Tobacco: Never Alcohol Use Standard Drinks/Week Comments Yes 0 (1 standard drink = 0.6 oz pur e alcohol) rarely PHQ-2 Answer Date Recorded PHQ-2 Total Score 2 12/04/2022 Sex and Gender Information Value Date Recorded Sex Assigned at Female 12/31/2023 3:01 PM EDT Gender Identity Female 12/31/2023 3:01 PM EDT Sexual Orientation Heterosexual (straight) 12/30 3:01 PM EDT documented as of this encounter Plan of Treatment Upcoming Encounters Date Type Department Care Team (Late st Contact Info) Description 07/14/2024 8:15 AM EDT Office Visit [address] [place] [phone] Steph Love MD [address] [place] [address] [address] [place] [address] 10/15/2024 1:30 PM EDT Telemedicine [facility] Endocrinology [address] [place] [phone] Ruy Larsen MD [address] [facility] [address] [place] [address] documented as of this encounter Visit Diagnoses Not on filedocumented in this encounter Care Teams Electrical Logging Engineer Relationship Specialty Start Date End Date Steph Love MD [address] [place] [address] PCP - General Internal Medicine 02/01/21 Elizabeth Garzon MD [address] [place] [address] [address] [place] [address] OBGYN Obstetrics and Gynecology 02/01/21 documented as of this encounter
--- OUTSIDE RECORDS SUMMARY | 2024-05-06 08:57 | XMS_ITS | Encounter Summary ---
Author Organization [facility] Address [address] [place] [address] Care Team Providers Care Underwater Welder Name Role Phone Steph Love MD Primary Care Provider [phone] Elizabeth Garzon MD Unavailable [phone] Encounter Details Date Type Department Care Team (Late st Contact Info) Description 04/07/2021 Scanned Document [facility] PRIMARY CARE SCAN Steph Love MD [address] [place] [phone] Social History Tobacco Use Types Packs/Day Years Used Date Smoking Tobacco: Never Smokeless Tobacco: Never Alcohol Use Standard Drinks/Week Comments Yes 0 (1 standard drink = 0.6 oz pur e alcohol) rarely PHQ-2 Answer Date Recorded PHQ-2 Total Score 4 02/01/2021 Sex and Gender Information Value Date Recorded Sex Assigned at Female 12/31/2023 3:01 PM EDT Gender Identity Female 12/31/2023 3:01 PM EDT Sexual Orientation Heterosexual (straight) 12/30 3:01 PM EDT documented as of this encounter Plan of Treatment Upcoming Encounters Date Type Department Care Team (Late st Contact Info) Description 07/14/2024 8:15 AM EDT Office Visit [address] [place] [phone] Steph Love MD [address] [place] [address] [place] [address] 10/15/2024 1:30 PM EDT Telemedicine [facility] Endocrinology [place] 190 [facility] [address] [place] [address] Ruy Larsen MD 190 [facility] 103 [place] [address] documented as of this encounter Visit Diagnoses Not on filedocumented in this encounter Care Teams Underwater Welder Relationship Specialty Start Date End Date Steph Love MD [address] [place] [address] PCP - General Internal Medicine 02/01/21 Elizabeth Garzon MD [address] [place] [address] [place] [address] OBGYN Obstetrics and Gynecology 02/01/21 documented as of this encounter
--- OUTSIDE RECORDS SUMMARY | 2024-05-06 08:57 | XMS_ITS | Encounter Summary ---
Author Organization [facility] Address [address] [place] [address] Care Team Providers Care Art Gilder Name Role Phone Steph Zavala MD Primary Care Provider [phone] Elizabeth Garzon MD Unavailable [phone] Reason for Visit * Reason Comments Diabetes Type 2 DM - Blood argueta garLabs: 04/09/2024A1C: 6.1 (04/09/2024)Eye Exam: Overdue since 03/27/2024Foot Exam: Never doneEr: No recents CGM/METER/PUMP: Encounter Details Date Type Department Care Team (Late st Contact Info) Description 04/15/2024 8:30 AM EST Telemedicine [facility] Endocrinology [place] 190 [facility] 103 [place] [address] Ruy Larsen MD 190 [facility] 103 [place], [place] [id number] Type 2 diabetes mellitus without complication, without long-term current use of insulin (HCC) (Primary Dx); Subclinical hyperthyroidism; Polycystic ovaries; Hypertension, essential, benign; Nonalcoholic steatohepatitis (ENRIQUEZ); Class 3 severe obesity with body mass index (BMI) of 40.0 to 44.9 in adult, unspecified obesity type, unspecified whether serious comorbidity present (HCC) Social History Tobacco Use Types Packs/Day Years Used Date Smoking Tobacco: Never Smokeless Tobacco: Never Alcohol Use Standard Drinks/Week Comments Yes 0 (1 standard drink = 0.6 oz pur e alcohol) rarely [facility] Utilities Answer Date Recorded In the past 12 months has th e electric, gas, oil, or water company threatened to shut off services in your home? No 04/15/2024 Social Connection and Isolation Panel [NHANES] A nswer Date Recorded In a typical week, how many times do you talk on the phone with family, friends, or neighbors? Three times a week 04/15/2024 Frequency of Social Gatherin gs with Friends and Family Not on file 04/15/2024 Attends Bahai Services Not on file 04/15 Active Member of Clubs or Organizations Not on f ile 04/15/2024 Attends Club or Organization Meetings Not on maritza e 04/15/2024 Marital Status Not on file 04/15/2024 AUDIT-C Answer Date Recorded Q1: How often do you have a drink containing alc ohol? Monthly or less 04/15/2024 Q2: How many drinks containi ng alcohol do you have on a typical day when you are drinking? 1 or 2 04/15/2024 Frequency of Binge Drinking Not on file 04/05 PHQ-2 Answer Date Recorded PHQ-2 Total Score 2 12/04/2022 Hunger Vital Sign Answer Date Recorded Within the past 12 months, y ou worried that your food would run out before you got the money to buy more. Never true 04/15/19 25 Within the past 12 months, t he food you bought just didn't last and you didn't have money to get more. Never true 04/15/2024 PRAPARE - Transportation Answer Date Re corded In the past 12 months, has l ack of transportation kept you from medical appointments or from getting medications? No 04/05 In the past 12 months, has l ack of transportation kept you from meetings, work, or from getting things needed for daily living? No 04/15/2024 Housing Stability Vital Sign Answer Luciano e Recorded In the last 12 months, was t here a time when you were not able to pay the mortgage or rent on time? No 04/15/2024 In the past 12 months, how m any times have you moved where you were living? 0 04/15/2024 At any time in the past 12 m [facility], were you homeless or living in a [place] facility (including now)? No 04/15/2024 Education Answer Date Recorded What is the highest level of school you have completed or the highest degree you have received? Some college, no degree 04/15/2024 Sex and Gender Information Value Date Recorded Sex Assigned at Female 12/31/2023 3:01 PM EDT Gender Identity Female 12/31/2023 3:01 PM EDT Sexual Orientation Heterosexual (straight) 12/30 3:01 PM EDT documented as of this encounter Last Filed Vital Signs Vital Sign Reading Time Taken Comments Blood Pressure - - Pulse - - Temperature - - Respiratory Rate - - Oxygen Saturation - - Inhaled Oxygen Concentration - - Weight 104 kg (229 lb) 04/15/2024 8:18 AM EST Height 157.5 cm (5' 2 ) 04/15/2024 8:18 AM EST Body Mass Index 41.88 04/15/2024 8:18 AM EST documented in this encounter Patient Instructions * Patient Instructions* Ruy Larsen MD - 04/15/2024 8:49 AM EST Repeat thyroid functions in 8 weeks. documented in this encounter Progress Notes * Ruy Larsen MD - 04/15/2024 8:26 AM EST ASSESSMENT AND PLAN: Tiny was seen today for diabetes. Diagnoses and all orders for this visit: Type 2 diabetes mellitus without complication, without long-term current use of insulin (HCC) Subclinical hyperthyroidism- - TSH, HIGHLY SENSITIVE - T4, FREE - THYROID STIMULATING IMMUNOGLOBULIN - T3, Total Polycystic ovaries Hypertension, essential, benign Nonalcoholic steatohepatitis (ENRIQUEZ) Class 3 severe obesity with body mass index (BMI) of 40.0 to 44.9 in adult, unspecified obesity type, unspecified whether serious comorbidity present (HCC) 44 y.o. female presents for follow-up regarding management of type 2 diabetes. She could not tolerate metformin due to diarrhea. [facility] 2 months on 5 mg weekly. She will discuss increasing dose withDr. Zavala tomorrow. Subclinical hypothyroidism noted on labs done last week. TSH was suppressed. Previous TSH in January 2025 was 0.25. Repeat labs in 8 weeks as she just had the flu within the last 3 weeks. Rule out nonthyroidal illness. She has no symptoms of hyperthyroidism. If the repeat labs are similar, then we can proceed to get an uptake scan and a thyroid ultrasound. Lab Results Component Value Date HGBA1C 6.1 (H) 04/09/2024 Lab Results Component Value Date HGBA1C 6.1 (H) 04/09/2024 I reviewed with the patient the importance of achieving tight glycemic control in order to prevent the micro-and macrovascular complications of diabetes. Our goals are to achieve an A1c less than 7%. Our goal is to achieve fasting blood sugars between 80 and 120 mg/dL, two-hour postmeal blood sugars less than 180 mg/dL. We reviewed the importance of attention to diet and exercise and recommend a goal of exercising for30 to 45 minutes a day. Complication screening: We reviewed the need for annual dilated eye exam, biannual dental exams, and daily self-inspection of feet. We reviewed the ADA guidelines to start a daily aspirin 81 mg in men ages 50+ and women ages 60+ years old. Followup is recommended in 6 months; patient is aware to contact me or return sooner for interim concerns. PRIMARY CARE PROVIDER: Steph Zavala MD REASON FOR VISIT: Chief Complaint Patient presents with Diabetes Type 2 DM - Blood sugar Labs: 04/09/2024 A1C: 6.1 (04/09/2024) Eye Exam: Overdue since 03/27/2024 Foot Exam: Never done Er: No recents CGM/METER/PUMP: HISTORY OF THE PRESENT ILLNESS: Tiny Martin is a 44 y.o. female who is here for consultation of type 2 DM and concerns for Julio's syndrome. REFERRING PROVIDER: STEPH ZAVALA HPI: Diabetes: T2DM Diagnosed year: 2004 How: HTN - 1 year ago. GDM- Metformin- 2015. Insulin Basaglar with 3rd 2019. Labs done in May 2023 showed no evidence of Tenino's disease. Her 24-hour urine free cortisol and a.m. cortisol, ACTH were all normal. Current DM regimen: Mounjaro 5 mg weekly. Compliance: good Prior treatments/medications: Stopped metformin due to diarrhea. Jardiance was stopped. HbA1c: Lab Results Component Value Date HGBA1C 6.1 (H) 04/09/2024 FS: DM associated complications: Retinopathy:no Neuropathy: no History of diabetic foot wounds: Nephropathy:no [place],CVA,PVD,TIA: no Last dilated eye exam: May 2023. Podiatry: Hypoglycemia: FS< 70 mg/dL Hospitalizations for hypoglycemia/hyperglycemia/DKA/HHS:no Severe hypoglycemia associated with LOC, seizure, MVC, ED visit, or admission: no Blood pressure:130/88 Lipids: Kidney stones- oxalate stones. Hysterectomy Dec 2022 - for menorrhagia, endometriosis. Father had thyroid mass removed 2017. WEIGHT Body mass index is 41.88 kg/m??. LIPIDS The 10-year ASCVD risk score (Suzie AYALA, et al., 2019) is: 1.7% Values used to calculate the score: Age: 44 years Sex: Female Is Non- : No Diabetic: Yes Tobacco smoker: No Systolic Blood Pressure: 124 mmHg Is BP treated: Yes HDL Cholesterol: 51 mg/dL Total Cholesterol: 172 mg/dL Weight Trend: Wt Readings from Last 3 Encounters: 04/15/24 104 kg (229 lb) 04/03/24 107 kg (236 lb) 02/05/24 107 kg (236 lb 9.6 oz) PAST MEDICAL HISTORY: Past Medical History: Diagnosis Date Asthma Depression Diabetes mellitus (HCC) Fibroid uterus 06/2022 Kidney stone Past Surgical History: Procedure Laterality Date CARPAL TUNNEL RELEASE Right SECTION CYST REMOVAL HYSTERECTOMY 01/01/2023 LITHOTRIPSY TUBAL LIGATION Patient Active Problem List Diagnosis Obesity Cervical spondylosis without myelopathy Diaphragmatic hernia Displacement of cervical intervertebral disc without myelopathy Vitamin D deficiency Ureteric stone Severe recurrent major depression without psychotic features (HCC) Polycystic ovaries Obstructive sleep apnea syndrome Non-toxic goiter Nonalcoholic steatohepatitis (ENRIQUEZ) Gastro-esophageal reflux disease without esophagitis History of gestational diabetes mellitus Impaired fasting glucose Intramural leiomyoma of uterus Iron deficiency anemia Type 2 diabetes mellitus without complication, without long-term current use of insulin (HCC) Current Outpatient Medications on File Prior to Visit Medication Sig Dispense Refill albuterol (PROVENTIL HFA; VENTOLIN HFA) 108 (90 Base) MCG/ACT inhaler Inhale 2 puffs 4 (four) timesa day. 1 each 0 atorvastatin (LIPITOR) 10 MG tablet Take 1 tablet (10 mg total) by mouth daily. 90 tablet 1 lisinopril (PRINIVIL,ZeSTRIL) 20 MG tablet Take 1 tablet (20 mg total) by mouth daily. 90 tablet 1 montelukast (SINGULAIR) 10 MG tablet Take 1 tablet (10 mg total) by mouth nightly. 30 tablet 1 Mounjaro 5 MG/0.5ML pen-injector INJECT 5 MG SUBCUTANEOUSLY EVERY WEEK DIRECTED. ROTATE INJECTION SITES IN THE ABDOMEN, THIGH OR UPPER ARM 2 mL 0 sertraline (ZOLOFT) 100 MG tablet TAKE ONE TABLET BY MOUTH EVERY DAY 90 tablet 0 [DISCONTINUED] tirzepatide (MOUNJARO) 5 mg/0.5 mL pen-injector Inject 1 Pen (5 mg total) under the skin once a week. 2 mL 0 No current facility-administered medications on file prior to visit. ALLERGIES: Allergies Allergen Reactions Coconut Hives Coconut (Cocos Nucifera) Hives Escitalopram Other (See Comments) SOCIAL AND FAMILY HISTORY: Social History Social History Narrative Not on file Family History Problem Relation Age of Onset Thyroid disease Father Diabetes Father Hypertension Father ROS: Review of Systems All other systems reviewed and are negative. PHYSICAL EXAMINATION: Ht 1.575 m (5' 2 ) Wt 104 kg (229 lb) LMP (LMP Unknown) BMI 41.88 kg/m?? Physical Exam PHYSICAL EXAM: A hands-on physical exam was not performed given the limitations of a virtual healthvisit. Any physical exam documentation was done based on visual inspection performed remotely via video camera. RECENT PERTINENT DATA AND LABS: Lab Results Component Value Date HGBA1C 6.1 (H) 04/09/2024 HGBA1C 5.9 (H) 04/09/2024 HGBA1C 6.7 (A) 12/31/2023 Lab Results Component Value Date MICROALBUR 0.9 04/09/2024 CREAT 0.60 04/09/2024 Lab Results Component Value Date TSH 0.08 (L) 04/09/2024 [id number] 04/09/2024 documented in this encounter Plan of Treatment Upcoming Encounters Date Type Department Care Team (Late st Contact Info) Description 07/14/2024 8:15 AM EDT Office Visit [address] [phone] Steph Zavala MD [address] [place] [address] 10/15/2024 1:30 PM EDT Telemedicine [facility] Endocrinology [place] [address] [facility] 103 [place] [address] Ruy Larsen MD [address] [facility] 103 [place] [address] Scheduled Orders Name Type Priority Associated Diagnoses Orde r Schedule TSH, HIGHLY SENSITIVE Lab Routine Subclinical hyperthyroidism Ordered: 04/15/2024 T4, FREE Lab Routine Subclinical hyperthyroidism Ordered: 04/15/2024 THYROID STIMULATING IMMUNOGLOBULIN Lab Routine Subclinical hyperthyroidism Ordered: 04/15/2024 T3, Total Lab Routine Subclinical hyperthyroidism Ordered: 04/15/2024 documented as of this encounter Visit Diagnoses Diagnosis Type 2 diabetes mellitus without complication, without long-term current use of insulin (HCC)- Primary Subclinical hyperthyroidism Thyrotoxicosis without mention of goiter or other cause, without mention of thyrotoxic crisis or storm Polycystic ovaries Hypertension, essential, benign Essential hypertension, benign Nonalcoholic steatohepatitis (ENRIQUEZ) Class 3 severe obesity with body mass index (BMI) of 40.0 to 44.9 in adult, unspecified obesity type, unspecified whether serious comorbidity present (HCC) documented in this encounter Care Teams Art Gilder Relationship Specialty Start Date End Date Steph Zavala MD [address] [place] [address] PCP - General Internal Medicine 02/01/21 Elizabeth Garzon MD [address] [place] [address] [place] [address] OBGYN Obstetrics and Gynecology 02/01/21 documented as of this encounter
--- OUTSIDE RECORDS SUMMARY | 2024-05-06 08:57 | XMS_ITS | Encounter Summary ---
Author Organization [facility] Address [address] [place] [address] Care Team Providers Care Milled Rubber Tender Name Role Phone Pcp, No Primary Care Provider Unavailanalisa e Steph Love MD Primary Care Provider [phone] Elizabeth Garzon MD Unavailable [phone] Encounter Details Date Type Department Care Team (Late st Contact Info) Description 10/05/2020 Scanned Document [address] [phone] Provider, Generic Social History Tobacco Use Types Packs/Day Years Used Date Smoking Tobacco: Never Assessed Sex and Gender Information Value Date Recorded Sex Assigned at Female 12/31/2023 3:01 PM EDT Gender Identity Female 12/31/2023 3:01 PM EDT Sexual Orientation Heterosexual (straight) 12/30 3:01 PM EDT documented as of this encounter Plan of Treatment Upcoming Encounters Date Type Department Care Team (Late Contact Info) Description 07/14/2024 8:15 AM EDT Office Visit [address] [phone] Steph Love MD [address] [phone] 10/15/2024 1:30 PM EDT Telemedicine [facility] Endocrinology [address] [phone] Ruy Larsen MD 190 [facility] 103 [place] [address] documented as of this encounter Procedures Procedure Name Priority Date/Time Associated Diagnosis Comments LAB RESULT 10/05/2020 LAB RESULT 10/05/2020 LAB RESULT 10/05/2020 documented in this encounter Results * LAB RESULT (10/05/2020) Narrative 10/05/2020 Ordered by an unspecified provider. Generic Provider HX AMB PROCEDURES * LAB RESULT (10/05/2020) Narrative 10/05/2020 Ordered by an unspecified provider. Generic Provider HX AMB PROCEDURES * LAB RESULT (10/05/2020) Narrative 10/05/2020 Ordered by an unspecified provider. Generic Provider HX AMB PROCEDURES documented in this encounter Visit Diagnoses Not on filedocumented in this encounter Care Teams Milled Rubber Tender Relationship Specialty Start Date End Date Pcp, No PCP - General General Medicine 12/29/20 01/31/21 Steph Love MD [address] [place] [address] PCP - General Internal Medicine 02/01/21 Elizabeth Garzon MD [address] [place] [address] [address] [place] [address] OBGYN Obstetrics and Gynecology 02/01/21 documented as of this encounter
--- OUTSIDE RECORDS SUMMARY | 2024-05-06 08:57 | XMS_ITS | Encounter Summary ---
Author Organization [facility] Address [address] [place] [address] Care Team Providers Care Membership Director Name Role Phone Pcp, No Primary Care Provider Unavailanalisa e Steph Love MD Primary Care Provider [phone]- [phone] Elizabeth Garzon MD Unavailable [phone] Encounter Details Date Type Department Care Team (Late st Contact Info) Description 03/15/2020 Scanned Document [address] [phone] Pain Management, Scan Social History Tobacco Use Types Packs/Day Years Used Date Smoking Tobacco: Never Assessed Sex and Gender Information Value Date Recorded Sex Assigned at Female 12/31/2023 3:01 PM EDT Gender Identity Female 12/31/2023 3:01 PM EDT Sexual Orientation Heterosexual (straight) 12/30 3:01 PM EDT documented as of this encounter Plan of Treatment Upcoming Encounters Date Type Department Care Team ([facility] Contact Info) Description 07/14/2024 8:15 AM EDT Office Visit [address] [phone] Steph [place] MD [address] [place] [phone] 10/15/2024 1:30 PM EDT Telemedicine [facility] Endocrinology [address] [phone] Ruy Larsen MD 190 [facility] 103 [place] [address] documented as of this encounter Visit Diagnoses Not on filedocumented in this encounter Care Teams Membership Director Relationship Specialty Start Date End Date Pcp, No PCP - General General Medicine 12/29/20 01/31/21 Steph [place] MD [address] [place] [address] PCP - General Internal Medicine 02/01/21 Elizabeth Garzon MD [address] [place] [address] [address] [place] [address] OBGYN Obstetrics and Gynecology 02/01/21 documented as of this encounter
--- OUTSIDE RECORDS SUMMARY | 2024-05-06 08:57 | XMS_ITS | Encounter Summary ---
Author Organization Formerly [facility] Address [address] [place] [address] Care Team Providers Care Chief Mate Name Role Phone Steph Love MD Primary Care Provider [phone] Elizabeth Garzon MD Unavailable [phone] Reason for Referral * Medication Prior Authorization - Pending Review Specialty Diagnoses / Procedures Referred By Contman t Referred To Contact Diagnoses Type 2 diabetes mellitus without complication, without long-term current use of insulin (HCC) Steph Love MD [address] [place], [place] [id number] Referral ID Status Reason Start Date Expiration Date V isits Requested Visits Authorized [id number] Pending Review 1 1 Reason for Visit * Reason Comments Follow-up 2 month follow up Encounter Details Date Type Department Care Team (Latest Contact Info) Description 04/16/2024 8:15 AM EST Office Visit [address] [phone] Steph Love MD [address] [place] [address] Type 2 diabetes mellitus without complication, without long-term current use of insulin (HCC) (Primary Dx); Essential hypertension; Hypercholesterolemia; Depression with anxiety; Morbid obesity with BMI of 40.0-44.9, adult (HCC); Subclinical hyperthyroidism Social History Tobacco Use Types Packs/Day Years Used Date Smoking Tobacco: Never Smokeless Tobacco: Never Alcohol Use Standard Drinks/Week Comments Yes 0 (1 standard drink = 0.6 oz pur e alcohol) rarely [facility] Utilities Answer Date Recorded In the past [...] and Family Not on file 04/15/2024 Attends Spiritism Services Not on file 04/15 Active Member [...] any time in the past 12 m [facility], were you homeless or living in a [facility] (including now)? No 04/15/2024 Education Answer Date [...] Sign Reading Time Taken Comments Blood Pressure 108/76 04/16/2024 8:10 AM EST Pulse 99 04/16/2024 8:10 AM EST Temperature 36.2 ??C (97.1 ??F) 04/16/2024 8:10 AM ES T Respiratory Rate 16 04/16/2024 8:10 AM EST Oxygen Saturation 98% 04/16/2024 8:10 AM EST Inhaled Oxygen Concentration - - Weight 106 kg (232 lb 9.6 oz) 04/16/2024 8:10 AM EST Height 157.5 cm (5' 2.01 ) 04/16/2024 8:10 AM ES T Body Mass Index 42.53 04/16/2024 8:10 AM EST documented in this encounter Progress Notes * Steph Love MD - 04/16/2024 8:38 AM EST Images from the original note were not included. Assessment & Plan Type 2 diabetes mellitus without complication, without long-term current use of insulin (HCC) Morbid obesity with BMI of 40.0-44.9, adult (HCC) - tirzepatide (MOUNJARO) 7.5 mg/0.5 mL pen-injector; Inject 1 Pen (7.5 mg total) under the skin once a week. Dispense: 2 mL; Refill: 3 Increase mounjaro to 7.5 mg once per week Addressed ADA diet. Encouraged aerobic exercise. Discussed foot care. Reminded to get yearly retinal exam. Essential hypertension Continue lisinopril 20 mg daily Hypercholesterolemia Continue atorvastatin 10 mg daily Depression with anxiety Stable. Continue zoloft 100 mg daily Subclinical hyperthyroidism Following with substation operator helper, Dr. Larsen There are no Patient Instructions on file for this visit. Patient understands and agrees with the plan of care Communication barriers and lifestyle preferences were addressed with the patient. The care plan including medications and self-management goals were reviewed to the best of the patient???s abilities.All questions and concerns were answered. Patient and/or family verbalized understanding of the plan of care. Subjective Tiny Martin is a 44 y.o. female who presents for office visit. Chief Complaint Patient presents with Follow-up 2 month follow up HPI Follow up visit for hypertension, hyperlipidemia, diabetes, obesity. Reports compliance with medications. No reported medication side effects. Blood pressure well controlled. Recent labs reviewed. TSH low (she has discussed this with substation operator helper Dr. Larsen, planning to repeat labs in 1 month) Patient Active Problem List Diagnosis Obesity Cervical [...] without long-term current use of insulin (HCC) Hypertension, essential, benign Subclinical hyperthyroidism Current Outpatient Medications Medication Sig Dispense Refill albuterol (PROVENTIL HFA; [...] total) by mouth nightly. 30 tablet 1 sertraline (ZOLOFT) 100 MG tablet TAKE ONE TABLET BY MOUTH EVERY DAY 90 tablet 0 tirzepatide (MOUNJARO) 7.5 mg/0.5 mL pen-injector Inject 1 Pen (7.5 mg total) under the skin once aweek. 2 mL 3 No current facility-administered medications for this visit. Pertinent History: The patient's past medical, surgical, social, and family history were all reviewed and updated as appropriate. Review of Systems Constitutional: Negative. Respiratory: Negative. Cardiovascular: Negative. Gastrointestinal: Negative. Endocrine: Negative. Neurological: Negative. Psychiatric/Behavioral: Negative for self-injury and suicidal ideas. Objective Vitals: 04/16/24 0810 BP: 108/76 BP Location: Left arm Patient Position: Sitting Cuff Size: Large Pulse: 99 Resp: 16 Temp: 97.1 ??F (36.2 ??C) TempSrc: Temporal SpO2: 98% Weight: 106 kg (232 lb 9.6 oz) Height: 1.575 m (5' 2.01 ) Physical Exam Constitutional: General: She is not in acute distress. Appearance: She is obese. She is not toxic-appearing. HENT: Head: Normocephalic. Eyes: General: No scleral icterus. Conjunctiva/sclera: Conjunctivae normal. Cardiovascular: Rate and Rhythm: Normal rate and regular rhythm. Heart sounds: Normal heart sounds. Pulmonary: Effort: Pulmonary effort is normal. No respiratory distress. Breath sounds: Normal breath sounds. No wheezing or rales. Skin: General: Skin is warm and dry. Coloration: Skin is not jaundiced. Neurological: Mental Status: She is alert and oriented to person, place, and time. Psychiatric: Mood and Affect: Mood normal. Behavior: Behavior normal. Thought Content: Thought content normal. Recent Results (from the past 672 hour(s)) Hemoglobin A1C Collection Time: 04/09/24 9:05 AM Result Value Ref Range Hemoglobin A1C 5.9 (H) <5.7 % of total Hgb TSH, HIGHLY SENSITIVE Collection Time: 04/09/24 9:05 AM Result Value Ref Range TSH, Highly Sensitive 0.08 (L) mIU/L T3, Total Collection Time: 04/09/24 9:05 AM Result Value Ref Range T3, Total 115 76 - 181 ng/dL T4, FREE Collection Time: 04/09/24 9:05 AM Result Value Ref Range T4, Free 1.1 0.8 - 1.8 ng/dL Thyroid Peroxidase and Thyroglobulin Antibodies Collection Time: 04/09/24 9:05 AM Result Value Ref Range Thyroglobulin AB <1 < or = 1 IU/mL Thyroid Peroxidase Antibody <1 <9 IU/mL Comprehensive Metabolic Panel Collection Time: 04/09/24 9:05 AM Result Value Ref Range Glucose 120 (H) 65 - 99 mg/dL Blood Urea Nitrogen (BUN) 10 7 - 25 mg/dL Creatinine 0.61 0.50 - 0.99 mg/dL Creatinine w/ eGFR 112 > OR = 60 mL/min/1.73m2 BUN/Creatinine Ratio SEE NOTE: (calc) Sodium 139 135 - 146 mmol/L Potassium 4.1 3.5 - 5.3 mmol/L Chloride 103 98 - 110 mmol/L CO2 30 20 - 32 mmol/L Calcium 9.0 8.6 - 10.2 mg/dL Protein, Total 6.5 6.1 - 8.1 g/dL Albumin 4.1 3.6 - 5.1 g/dL Globulin 2.4 1.9 - 3.7 g/dL (calc) Albumin/Globulin Ratio 1.7 1.0 - 2.5 (calc) Bilirubin, Total 0.6 0.2 - 1.2 mg/dL Alkaline Phosphatase 70 31 - 125 U/L Aspartate Aminotrans (AST) 13 10 - 35 U/L Alanine Aminotrans (ALT) 15 6 - 29 U/L Hemoglobin A1C Collection Time: 04/09/24 9:06 AM Result Value Ref Range Hemoglobin A1C 6.1 (H) <5.7 % of total Hgb Comprehensive Metabolic Panel Collection Time: 04/09/24 9:06 AM Result Value Ref Range Glucose 123 (H) 65 - 99 mg/dL Blood Urea Nitrogen (BUN) 9 7 - 25 mg/dL Creatinine 0.60 0.50 - 0.99 mg/dL Creatinine w/ eGFR 113 > OR = 60 mL/min/1.73m2 BUN/Creatinine Ratio SEE NOTE: (calc) Sodium 138 135 - 146 mmol/L Potassium 4.0 3.5 - 5.3 mmol/L Chloride 102 98 - 110 mmol/L CO2 27 20 - 32 mmol/L Calcium 9.0 8.6 - 10.2 mg/dL Protein, Total 6.5 6.1 - 8.1 g/dL Albumin 4.2 3.6 - 5.1 g/dL Globulin 2.3 1.9 - 3.7 g/dL (calc) Albumin/Globulin Ratio 1.8 1.0 - 2.5 (calc) Bilirubin, Total 0.6 0.2 - 1.2 mg/dL Alkaline Phosphatase 69 31 - 125 U/L Aspartate Aminotrans (AST) 12 10 - 35 U/L Alanine Aminotrans (ALT) 14 6 - 29 U/L Complete Blood Count, with Differential Collection Time: 04/09/24 9:06 AM Result Value Ref Range White Blood Cell Count 9.3 3.8 - 10.8 Thousand/uL Red Blood Cell Count 4.35 3.80 - 5.10 Million/uL Hemoglobin 11.8 11.7 - 15.5 g/dL Hematocrit 37.0 35.0 - 45.0 % MCV 85.1 80.0 - 100.0 fL MCH 27.1 27.0 - 33.0 pg MCHC 31.9 (L) 32.0 - 36.0 g/dL RDW 14.2 11.0 - 15.0 % Platelet Count 189 140 - 400 Thousand/uL MPV 11.4 7.5 - 12.5 fL Abs Neutrophils Auto 6,510 1,500 - 7,800 cells/uL Abs Lymphocytes Auto 1,962 850 - 3,900 cells/uL Abs Monocytes Auto 595 200 - 950 cells/uL Abs Eosinophils Auto 195 15 - 500 cells/uL Abs Basophils Auto 37 0 - 200 cells/uL Neutrophils Auto 70 % Lymphocytes Auto 21.1 % Monocytes Auto 6.4 % Eosinophils Auto 2.1 % Basophils Auto 0.4 % Microalbumin, Creatinine, Urine, Random Collection Time: 04/09/24 9:06 AM Result Value Ref Range Creatinine, Urine, Random 189 20 - 275 mg/dL Microalbumin, Urine, Random 0.9 See Note: mg/dL Microalbumin/Creatinine Ratio 5 <30 mg/g creat Steph Love MD documented in this encounter Plan of Treatment Upcoming Encounters Date Type Department Care Team (Late st Contact Info) Description 07/14/2024 8:15 AM EDT Office Visit [address] [phone] Steph Love MD [address] [place] [address] 10/15/2024 1:30 PM EDT Telemedicine [facility] Endocrinology [place] 190 [facility] 103 [place] [phone] Ruy Larsen MD 190 [facility] 103 [place], [place] [phone] documented as of this encounter Visit Diagnoses Diagnosis Type 2 diabetes mellitus without complication, without long-term current use of insulin (HCC)- Primary Essential hypertension Unspecified essential hypertension Hypercholesterolemia Pure hypercholesterolemia Depression with anxiety Dysthymic disorder Morbid obesity with BMI of 40.0-44.9, adult (HCC) Subclinical hyperthyroidism Thyrotoxicosis without mention of goiter or other cause, without mention of thyrotoxic crisis or storm documented in this encounter Care Teams Chief Mate Relationship Specialty Start Date End Date Steph Love MD [address] [place] [address] PCP - General Internal Medicine 02/01/21 [place] Garzon MD [address] [place] [address] [place] [address] OBGYN Obstetrics and Gynecology 02/01/21 documented as of this encounter
--- OUTSIDE RECORDS SUMMARY | 2024-05-06 08:57 | XMS_ITS | Encounter Summary ---
Author Organization Formerly [facility] Address [address] [place] [address] Care Team Providers Care Equipment Engineering Technician Name Role Phone Steph Love MD Primary Care Provider [phone] [place] Garzon MD Unavailable [phone] Encounter Details Date Type Department Care Team (Late st Contact Info) Description 07/15/2021 Scanned Document [facility] PRIMARY CARE SCAN Steph Love MD [address] [place] [address] Social History Tobacco Use Types Packs/Day Years [...] Description 07/14/2024 8:15 AM EDT Office Visit [address] [place] [phone] Steph Love MD [address] [place] [address] [place] [address] 10/15/2024 1:30 PM EDT Telemedicine [facility] Endocrinology [place] 190 [facility] [address] [place] [address] Ruy Larsen MD 190 [place] [facility] 103 [place] [address] documented as of this encounter Visit Diagnoses Not on filedocumented in this encounter Care Teams Equipment Engineering Technician Relationship Specialty Start Date End Date Steph Love MD [address] [place] [address] PCP - General Internal Medicine 02/01/21 [place] Garzon MD [address] [place] [address] [place] [address] OBGYN Obstetrics and Gynecology 02/01/21 documented as of this encounter
--- OUTSIDE RECORDS SUMMARY | 2024-05-06 08:57 | XMS_ITS | Encounter Summary ---
Author Organization Formerly [facility] Address [address] [place] [address] Care Team Providers Care Molder Trimmer Name Role Phone Pcp, No Primary Care Provider Unavailanalisa e Steph Love MD Primary Care Provider [phone] [place] Garzon MD Unavailable [phone] Encounter Details Date Type Department Care Team (Late st Contact Info) Description 01/09/2020 Scanned Document [address] [phone] Provider, Generic Social History Tobacco Use Types Packs/Day Years Used Date Smoking Tobacco: Never Assessed Sex and Gender Information Value Date Recorded Sex Assigned at Female 12/31/2023 3:01 PM EDT Gender Identity Female 12/31/2023 3:01 PM EDT Sexual Orientation Heterosexual (straight) 12/30 3:01 PM EDT documented as of this encounter Plan of Treatment Upcoming Encounters Date Type Department Care Team ([facility] Contact Info) Description 07/14/2024 8:15 AM EDT Office Visit [address] [place] [phone] Steph Love MD [address] [place] [address] [address] [place] [address] 10/15/2024 1:[address] [facility] Endocrinology [address] [phone] Ruy Larsen MD 190 [facility] N [facility] 103 [place] [address] documented as of this encounter Procedures Procedure Name Priority Date/Time Associated Diagnosis Comments IMAGING BREAST/BX/MAMMO 01/09/2020 documented in this encounter Results * IMAGING BREAST/BX/MAMMO (01/09/2020) Anatomical Region Laterality Modality Other Narrative 01/09/2020 Ordered by an unspecified provider. Generic Provider IMG LEGACY PROCEDURE S documented in this encounter Visit Diagnoses Not on filedocumented in this encounter Care Teams Molder Trimmer Relationship Specialty Start Date End Date Pcp, No PCP - General General Medicine 12/29/20 01/31/21 Steph Love MD [address] [place] [address] PCP - General Internal Medicine 02/01/21 [place] Garzon MD [address] [place] [address] Dr Shin [address] [place] [address] OBGYN Obstetrics and Gynecology 02/01/21 documented as of this encounter
--- OUTSIDE RECORDS SUMMARY | 2024-05-06 08:57 | XMS_ITS | Encounter Summary ---
Author Organization [facility] Address [address] [place], [place] [id number] Care Team Providers Care Bow Rehairer Name Role Phone Steph Love MD Primary Care Provider [phone] [place] Garzon MD Unavailable [phone] Encounter Details Date Type Department Care Team (Late Contact Info) Description 04/01/2021 Scanned Document [address] [phone] Steph Love MD [address] [place] [address] Social History Tobacco Use Types Packs/Day Years [...] Description 07/14/2024 8:15 AM EDT Office Visit [address] [phone] Steph Love MD [address] [place] [address] 10/15/2024 1:30 PM EDT Telemedicine [facility] Endocrinology [place] 190 [facility] 103 [place] [address] Ruy Larsen MD 190 [facility] 103 [place], [place] [phone] documented as of this encounter Visit Diagnoses Not on filedocumented in this encounter Care Teams Bow Rehairer Relationship Specialty Start Date End Date Steph Love MD [address] [place] [address] PCP - General Internal Medicine 02/01/21 [place] Garzon MD [address] [place] [address] [place] [address] OBGYN Obstetrics and Gynecology 02/01/21 documented as of this encounter
--- OUTSIDE RECORDS SUMMARY | 2024-05-06 08:57 | XMS_ITS | Encounter Summary ---
Author Organization [facility] Address [address] [place] [address] Care Team Providers Care Historical Site Guide Name Role Phone Pcp, No Primary Care Provider Unavailanalisa e Steph Love MD Primary Care Provider [phone] [place] Garzon MD Unavailable [phone] Encounter Details Date Type Department Care Team (Late st Contact Info) Description 02/18/2020 Scanned Document [address] [phone] Provider, Generic Social History Tobacco Use Types [...] Description 07/14/2024 8:15 AM EDT Office Visit [address] [phone] Steph Love MD [address] [place] [address] 10/15/2024 1:30 PM EDT Telemedicine [facility] Endocrinology [address] [phone] Ruy Larsen MD 190 [facility] 103 [place] [address] documented as of this encounter Visit Diagnoses Not on filedocumented in this encounter Care Teams Historical Site Guide Relationship Specialty Start Date End Date Pcp, No PCP - General General Medicine 12/29/20 01/31/21 Steph Love MD [address] [place] [address] PCP - General Internal Medicine 02/01/21 [place] Garzon MD [address] [place] [address] Dr Shin [address] [place] [address] OBGYN Obstetrics and Gynecology 02/01/21 documented as of this encounter
--- OUTSIDE RECORDS SUMMARY | 2024-05-06 08:57 | XMS_ITS | Encounter Summary ---
Author Organization [facility] Address [address] [place] [address] Care Team Providers Care Training Associate Name Role Phone Steph Love MD Primary Care Provider [phone] [place] Garzon MD Unavailable [phone] Encounter Details Date Type Department Care Team (Late st Contact Info) Description 03/26/2021 Scanned Document [address] [phone] Urgent Care, Scan Social History Tobacco Use Types [...] Description 07/14/2024 8:15 AM EDT Office Visit [address] [phone] Steph Love MD [address] [place] [address] 10/15/2024 1:30 PM EDT Telemedicine [facility] Endocrinology [place] 190 [facility] [address] [place] [address] Ruy Larsen MD [address] [facility] 103 [place] [address] documented as of this encounter Visit Diagnoses Not on filedocumented in this encounter Care Teams Training Associate Relationship Specialty Start Date End Date Steph Love MD [address] [place] [address] PCP - General Internal Medicine 02/01/21 [place] Garzon MD [address] [place] [address] Dr Shin [address] [place] [address] OBGYN Obstetrics and Gynecology 02/01/21 documented as of this encounter
--- OUTSIDE RECORDS SUMMARY | 2024-05-06 08:57 | XMS_ITS | Encounter Summary ---
Author Organization [facility] Address [address] [place] [address] Care Team Providers Care Accounts Payable Professional Name Role Phone Pcp, No Primary Care Provider Unavailanalisa e Steph Love MD Primary Care Provider [phone]- [phone] [place] Garzon MD Unavailable [phone] Encounter Details Date Type Department Care Team (Late st Contact Info) Description 10/30/2019 Scanned Document [address] [phone] Provider, Generic Social History Tobacco Use Types [...] 07/14/2024 8:15 AM EDT Office Visit [address] [phone] Steph Love MD [address] [place] [address] 10/15/2024 1:30 PM EDT Telemedicine [facility] Endocrinology [address] [phone] Ruy Larsen MD [address] [place] [address] [facility] N [facility] [address] [place] [address] documented as of this encounter Procedures Procedure Name Priority Date/Time Associated Diagnosis Comments LAB RESULT 11/17/2019 LAB RESULT 11/17/2019 documented in this encounter Results * LAB RESULT (11/17/2019) Narrative 11/17/2019 Ordered by an unspecified provider. Generic Provider HX AMB PROCEDURES * LAB RESULT (11/17/2019) Narrative 11/17/2019 Ordered by an unspecified provider. Generic Provider HX AMB PROCEDURES documented in this encounter Visit Diagnoses Not on filedocumented in this encounter Care Teams Accounts Payable Professional Relationship Specialty Start Date End Date Pcp, No PCP - General General Medicine 12/29/20 01/31/21 Steph Love MD [address] [place] [address] PCP - General Internal Medicine 02/01/21 [place] Garzon MD [address] [place] [address] Dr Shin [address] [place] [address] OBGYN Obstetrics and Gynecology 02/01/21 documented as of this encounter
--- OUTSIDE RECORDS SUMMARY | 2024-05-06 08:57 | XMS_ITS | Encounter Summary ---
Author Organization [facility] Address [address] [place] [address] Care Team Providers Care Aesthetics Instructor Name Role Phone Pcp, No Primary Care Provider Unavailanalisa e Steph Love MD Primary Care Provider [phone] [place] Garzon MD Unavailable [phone] Encounter Details Date Type Department Care Team (Late st Contact Info) Description 01/16/2020 Scanned Document [address] [phone] Pain Management, Scan Social History Tobacco Use [...] Description 07/14/2024 8:15 AM EDT Office Visit [address] [phone] Steph Love MD [address] [place] [address] 10/15/2024 1:30 PM EDT Telemedicine [facility] Endocrinology [address] [phone] Ruy Larsen MD 190 [facility] 103 [place] [address] documented as of this encounter Visit Diagnoses Not on filedocumented in this encounter Care Teams Aesthetics Instructor Relationship Specialty Start Date End Date Pcp, No PCP - General General Medicine 12/29/20 01/31/21 Steph Love MD [address] [place] [address] PCP - General Internal Medicine 02/01/21 [place] Garzon MD [address] [place] [address] Dr Shin [address] [place] [address] OBGYN Obstetrics and Gynecology 02/01/21 documented as of this encounter
--- OUTSIDE RECORDS SUMMARY | 2024-05-06 08:57 | XMS_ITS ---
Author Name [facility] Organization Unknown Results Test Name/Text Value Interpretation Date Range Source T4 Free SerPl-mCnc 1.1ng/dL Normal [id number] 0.8 - 1. 8 [facility] BUN/Creat SerPl SEE NOTE: Normal [id number] 6 - 22 Q [facility] AST SerPl-cCnc 13U/L Normal [id number] 10 - 35 QU EST ALT SerPl-cCnc 15U/L Normal [id number] 6 - 29 QU EST Creat SerPl-mCnc 0.61mg/dL Normal [id number] 0.5 - 0.99 [facility] Globulin Ser Calc-mCnc 2.4g/dL(calc) Normal [id number] 1.9 - 3.7 [facility] CO2 SerPl-sCnc 30mmol/L Normal [id number] 20 - 32 QU EST Albumin/Glob SerPl 1.7(calc) Normal [id number] 1 - 2.5 [facility] eGFRcr SerPlBld CKD-EPI 2020 112mL/min/1.7 3m2 Normal [id number] - [facility] Potassium SerPl-sCnc 4.1mmol/L Normal [id number] 3.5 - 5.3 [facility] Bilirub SerPl-mCnc 0.6mg/dL Normal [id number] 0.2 - 1. 2 [facility] Calcium SerPl-mCnc 9mg/dL Normal [id number] 8.6 - 10 .2 [facility] BUN SerPl-mCnc 10mg/dL Normal [id number] 7 - 25 QU EST ALP SerPl-cCnc 70U/L Normal [id number] 31 - 125 QU EST Chloride SerPl-sCnc 103mmol/L Normal [id number] 98 - 11 0 [facility] Albumin SerPl-mCnc 4.1g/dL Normal [id number] 3.6 - 5. 1 [facility] Prot SerPl-mCnc 6.5g/dL Normal [id number] 6.1 - 8.1 Q [facility] Glucose SerPl-mCnc 120mg/dL Above high normal [id number] 65 - 99 [facility] Sodium SerPl-sCnc 139mmol/L Normal [id number] 135 - 146 [facility] T3 SerPl-mCnc 115ng/dL Normal [id number] 76 - [address] TSH SerPl-aCnc 0.08mIU/L Below low normal [id number] [facility] HbA1c MFr Bld 5.9%oftotalHg b Above high normal [id number] - 5.7 [facility] Thyroperoxidase Ab SerPl-aCnc <1 Normal [id number] - 9 [facility] Thyroglob Ab SerPl-aCnc <1 Normal [id number] - [facility] History of Medication Use Medication Directions Dispensed Refills Start Date End Date Stat albuterol (PROVENTIL HFA; VENTOLIN HFA) 108 (90 Base) MCG/ACT inhaler Inhale 2 puffs 4 (four) times a day. 06/15/2022 active Vitamin D3 (CHOLECALCIFEROL) 50 MCG (2000 UT) tablet Take 1 tablet (2,000 Units total) by mouth daily. active lisinopril (PRINIVIL,ZeSTRIL) 20 MG tablet Take 1 tablet (20 mg total) by mouth daily. 02/08/2023 active sertraline (ZOLOFT) 100 MG tablet TAKE 1 TABLET BY MOUTH EVERY DAY 03/20/2023 active metFORMIN (GLUCOPHAGE) 500 MG tablet Take 1 tablet (500 mg total) by mouth 2 (two) times a day. 12/28/2020 03/03/2022 active atorvastatin (LIPITOR) 10 MG tablet TAKE 1 TABLET BY MOUTH EVERY DAY 08/09/2022 active Problems Problem Status Onset Date Problem Type Date of Resoluti on Source History of gestational diabetes mellitus active 2021-02-01 ProblemAct [facility] Intramural leiomyoma of uterus active 2021-02-01 ProblemAct [facility] Obesity active 2021-02-01 ProblemAct [facility] Type 2 diabetes mellitus without complication, without long-term current use of insulin active 2022-08-01 ProblemAct [facility] Obstructive sleep apnea syndrome active 2021-02-01 ProblemAct [facility] Ureteric stone active 2021-02-01 ProblemAct [facility] Gastro-esophageal reflux disease without esophagitis active 2021-02-01 ProblemAct [facility] Diaphragmatic hernia active 2021-02-01 ProblemAct [facility] Cervical spondylosis without myelopathy active 2021-02-01 ProblemAct [facility] Impaired fasting glucose active 2021-02-01 ProblemAct [facility] Displacement of cervical intervertebral disc without myelopathy active 2021-02-01 ProblemAct [facility] Polycystic ovaries active 2021-02-01 ProblemAct [facility] Severe recurrent major depression without psychotic features active 2021-02-01 ProblemAct [facility] Nonalcoholic steatohepatitis (ENRIQUEZ) active 2021-02-01 ProblemAct [facility] Iron deficiency anemia active 2021-02-01 ProblemAct [facility] Vitamin D deficiency active 2021-02-01 ProblemAct [facility] Non-toxic goiter active 2021-02-01 ProblemAct [facility] Immunizations Vaccine Date Source Lot Number Status Covid-19 MRNA Vaccine - Pfiz er 12+ (Purple Cap) 06/03/2020 [facility] completed Influenza, Quadrivalent (FLU AD) Adjuvanted Preservative Free IM 65 years and older 11/04/2019 [facility] completed Tdap 12/21/2015 [facility] completed Influenza Whole 01/03/2019 [facility] UNK completed Covid-19 MRNA Vaccine - Pfiz er 12+ (Purple Cap) 05/14/2020 [facility] completed Tdap 01/03/2019 [facility] UNK completed
--- OUTSIDE RECORDS SUMMARY | 2024-05-06 08:57 | XMS_ITS | Encounter Summary ---
Author Organization [facility] Address [address] [place] [address] Care Team Providers Care Instrument Setter Name Role Phone Pcp, No Primary Care Provider Unavailanalisa e Steph Love MD Primary Care Provider [phone]- [phone] Elizabeth Garzon MD Unavailable [phone] Encounter Details Date Type Department Care Team (Late st Contact Info) Description 08/08/2019 Scanned Document [address] [phone] Provider, Generic Social History Tobacco Use Types [...] Description 07/14/2024 8:15 AM EDT Office Visit [address] [phone] Steph Love MD [address] [place] [address] 742742 10/15/2024 1:30 PM EDT Telemedicine [facility] Endocrinology [address] [phone] Ruy Larsen MD 190 [facility] N [facility] 103 [place] [address] documented as of this encounter Procedures Procedure Name Priority Date/Time Associated Diagnosis Comments HX OPHTHALMOLOGY TESTING PROCEDURES 08/08/2019 documented in this encounter Results * HX OPHTHALMOLOGY TESTING PROCEDURES (08/08/2019) Narrative 08/08/2019 Ordered by an unspecified provider. Generic Provider HX AMB PROCEDURES documented in this encounter Visit Diagnoses Not on filedocumented in this encounter Care Teams Instrument Setter Relationship Specialty Start Date End Date Pcp, No PCP - General General Medicine 12/29/20 01/31/21 Steph Love MD [address] [place] [address] PCP - General Internal Medicine 02/01/21 Elizabeth Garzon MD [address] [place] [address] Dr Shin [address] [place] [address] OBGYN Obstetrics and Gynecology 02/01/21 documented as of this encounter
--- OUTSIDE RECORDS SUMMARY | 2024-05-06 08:57 | XMS_ITS | Encounter Summary ---
Author Organization [facility] Address [address] [place], [place] [id number] Care Team Providers Care Parole Or Probation Officer Name Role Phone Steph Love MD Primary Care Provider [phone]- [phone] Elizabeth Garzon MD Unavailable [phone] Encounter Details Date Type Department Care Team ([facility] Contact Info) Description 08/07/2022 Scanned Document [facility] CARDIOLOGY SCAN Cardiology, Scan Social History Tobacco Use Types Packs/Day [...] Orientation Heterosexual (straight) 12/30 3:01 PM EDT COVID-19 Exposure Response Date Recorded In the last 10 days, have yo u been in contact with someone who was confirmed or suspected to have Coronavirus/COVID-19? No / Unsure 08/01/2022 8:08 AM EDT documented as of this encounter Plan of Treatment Upcoming Encounters Date Type Department Care Team ([facility] Contact Info) Description 07/14/2024 8:15 AM EDT Office Visit [address] [place] [phone] Steph Love MD [address] [place] [address] [place] [address] 10/15/2024 1:30 PM EDT Telemedicine [facility] Endocrinology [place] 190 [facility] [address] [place] [address] Ruy Larsen MD 190 [facility] 103 [place], [place] [phone] documented as of this encounter Visit Diagnoses Not on filedocumented in this encounter Care Teams Parole Or Probation Officer Relationship Specialty Start Date End Date Steph Love MD [address] [place] [address] PCP - General Internal Medicine 02/01/21 Elizabeth Garzon MD [address] [place] [address] [place] [address] OBGYN Obstetrics and Gynecology 02/01/21 documented as of this encounter
--- OUTSIDE RECORDS SUMMARY | 2024-05-06 08:57 | XMS_ITS | Encounter Summary ---
Author Organization [facility] Address [address] [place] [address] Care Team Providers Care Fire Production Operator Name Role Phone Pcp, No Primary Care Provider Unavailanalisa e Steph Love MD Primary Care Provider [phone]- [phone] Elizabeth Garzon MD Unavailable [phone] Encounter Details Date Type Department Care Team (Late st Contact Info) Description 11/18/2020 Scanned Document [address] [phone] Provider, Generic Social History Tobacco Use Types [...] Description 07/14/2024 8:15 AM EDT Office Visit [address] [phone] Steph Love MD [address] 714382 10/15/2024 1:30 PM EDT Telemedicine [facility] Endocrinology [address] [phone] Ruy Larsen MD 190 [facility] N [facility] 103 [place] [address] documented as of this encounter Procedures Procedure Name Priority Date/Time Associated Diagnosis Comments LAB RESULT 11/18/2020 LAB RESULT 11/18/2020 LAB RESULT 11/17/2020 documented in this encounter Results * LAB RESULT (11/18/2020) 11/18/2020 Narrative Maite Madden - 11/18/2020 Ordered by an unspecified provider. Generic Provider HX AMB PROCEDURES * LAB RESULT (11/18/2020) 11/18/2020 Narrative No Norman - 11/18/2020 Ordered by an unspecified provider. Generic Provider HX AMB PROCEDURES * LAB RESULT (11/17/2020) 11/17/2020 Narrative No Norman - 11/17/2020 Ordered by an unspecified provider. Generic Provider HX AMB PROCEDURES documented in this encounter Visit Diagnoses Not on filedocumented in this encounter Care Teams Fire Production Operator Relationship Specialty Start Date End Date Pcp, No PCP - General General Medicine 12/29/20 01/31/21 Steph Love MD [address] [place] [address] PCP - General Internal Medicine 02/01/21 Elizabeth Garzon MD [address] [place] [address] [place] [address] OBGYN Obstetrics and Gynecology 02/01/21 documented as of this encounter
--- OUTSIDE RECORDS SUMMARY | 2024-05-06 08:57 | XMS_ITS | Encounter Summary ---
Author Organization [facility] Address [address] [place] [address] Care Team Providers Care Rn Documentation Name Role Phone Steph Love MD Primary Care Provider [phone]- [phone] Elizabeth Garzon MD Unavailable [phone] Reason for Visit * Reason Comments Referral Appointment Encounter Details Date Type Department Care Team (Late Contact Info) Description 03/18/[address] [phone] Steph Love MD [address] [place] [address] [address] [place], [place] [phone] Referral; Appointment Social History Tobacco Use Types Packs/Day Years [...] Description 07/14/2024 8:15 AM EDT Office Visit [address] [place] [phone] Steph Love MD [address] [place] [address] 10/15/2024 1:30 PM EDT Telemedicine [facility] Endocrinology [place] 190 [facility] 103 [place] [address] Ruy Larsen MD 190 [facility] [facility] 103 [place], [place] [phone] documented as of this encounter Visit Diagnoses Not on filedocumented in this encounter Care Teams Rn Documentation Relationship Specialty Start Date End Date Steph Love MD [address] [place] [address] PCP - General Internal Medicine 02/01/21 Elizabeth Garzon MD [address] [place] [address] [place] [address] OBGYN Obstetrics and Gynecology 02/01/21 documented as of this encounter
--- OUTSIDE RECORDS SUMMARY | 2024-05-06 08:57 | XMS_ITS | Encounter Summary ---
Author Organization [facility] Address [address] [place] [address] Care Team Providers Care Commercial Pest Control Representative Name Role Phone Pcp, No Primary Care Provider Unavailnaalisa e Steph Love MD Primary Care Provider [phone]- [phone] Elizabeth Garzon MD Unavailable [phone] Encounter Details Date Type Department Care Team (Late st Contact Info) Description 11/18/2020 Scanned Document [address] [phone] Provider, Generic Social History Tobacco Use Types [...] 07/14/2024 8:15 AM EDT Office Visit [address] [phone] Steph Love MD [address] 325892 10/15/2024 1:30 PM EDT Telemedicine [facility] Endocrinology [address] [phone] Ruy Larsen MD 190 [facility] 103 [place] [address] documented as of this encounter Visit Diagnoses Not on filedocumented in this encounter Care Teams Commercial Pest Control Representative Relationship Specialty Start Date End Date Pcp, No PCP - General General Medicine 12/29/20 01/31/21 Steph Love MD [address] [place] [address] PCP - General Internal Medicine 02/01/21 Elizabeth Garzon MD [address] [place] [address] Dr Shin [address] [place] [address] OBGYN Obstetrics and Gynecology 02/01/21 documented as of this encounter
--- OUTSIDE RECORDS SUMMARY | 2024-05-06 08:57 | XMS_ITS | Encounter Summary ---
Author Organization [facility] Address [address] [place] [address] Care Team Providers Care Water Pump Operator Name Role Phone Pcp, No Primary Care Provider Unavailanalisa e Steph Love MD Primary Care Provider [phone]- [phone] Elizabeth Garzon MD Unavailable [phone] Encounter Details Date Type Department Care Team (Late st Contact Info) Description 02/13/2020 Scanned Document [address] [phone] Provider, Generic Social History Tobacco Use Types [...] Description 07/14/2024 8:15 AM EDT Office Visit [address] [phone] Steph Love MD [address] [place] [address] 9785[address] 10/15/2024 1:30 PM EDT Telemedicine [facility] Endocrinology [address] [phone] Ruy Larsen MD [address] [facility] 103 [place] [address] documented as of this encounter Procedures Procedure Name Priority Date/Time Associated Diagnosis Comments EMG 02/13/2020 documented in this encounter Results * EMG (02/13/2020) Narrative 02/13/2020 Ordered by an unspecified provider. Generic Provider NEUROLOGY ORDERABLES documented in this encounter Visit Diagnoses Not on filedocumented in this encounter Care Teams Water Pump Operator Relationship Specialty Start Date End Date Pcp, No PCP - General General Medicine 12/29/20 01/31/21 Steph Love MD [address] [place] [address] PCP - General Internal Medicine 02/01/21 Elizabeth Garzon MD [address] [place] [address] Dr Shin [address] [place] [address] OBGYN Obstetrics and Gynecology 02/01/21 documented as of this encounter
--- OUTSIDE RECORDS SUMMARY | 2024-05-06 08:57 | XMS_ITS | Encounter Summary ---
Author Organization [facility] Address [address] [place] [address] Care Team Providers Care Mining Machinery Assembler Name Role Phone Pcp, No Primary Care Provider Unavailanalisa e Steph Love MD Primary Care Provider [phone]- [phone] Elizabeth Garzon MD Unavailable [phone] Encounter Details Date Type Department Care Team (Late st Contact Info) Description 03/08/2020 Scanned Document [address] [phone] Pain Management, Scan Social History Tobacco Use [...] Description 07/14/2024 8:15 AM EDT Office Visit [address] [phone] Steph Love MD [address] [place] [address] 486712 10/15/2024 1:30 PM EDT Telemedicine [facility] Endocrinology [address] [phone] Ruy Larsen MD 190 [facility] N [facility] 103 [place] [address] documented as of this encounter Visit Diagnoses Not on filedocumented in this encounter Care Teams Mining Machinery Assembler Relationship Specialty Start Date End Date Pcp, No PCP - General General Medicine 12/29/20 01/31/21 Steph Love MD [address] [place] [address] PCP - General Internal Medicine 02/01/21 Elizabeth Garzon MD [address] [place] [address] Dr Shin [address] [place] [address] OBGYN Obstetrics and Gynecology 02/01/21 documented as of this encounter
--- OUTSIDE RECORDS SUMMARY | 2024-05-06 08:57 | XMS_ITS | Encounter Summary ---
Author Organization [facility] Address [address] [place] [address] Care Team Providers Care Blockman Name Role Phone Steph Love MD Primary Care Provider [phone]- [phone] Elizabeth Garzon MD Unavailable [phone] Encounter Details Date Type Department Care Team (Late st Contact Info) Description 05/16/2021 Scanned Document [address] [phone] Provider, Generic Social History Tobacco Use Types [...] Description 07/14/2024 8:15 AM EDT Office Visit [address] [phone] Steph Love MD [address] [place] [address] 10/15/2024 1:30 PM EDT Telemedicine [facility] Endocrinology [place] 190 [facility] 103 [place] [phone] Ruy Larsen MD 190 [facility] 103 [place], [place] [phone] documented as of this encounter Procedures Procedure Name Priority Date/Time Associated Diagnosis Comments IMAGING BREAST/BX/MAMMO 05/16/2021 documented in this encounter Results * IMAGING BREAST/BX/MAMMO (05/16/2021) Anatomical Region Laterality Modality Other 05/16/2021 Narrative 05/16/2021 Ordered by an unspecified provider. Generic Provider IMG LEGACY PROCEDURE S documented in this encounter Visit Diagnoses Not on filedocumented in this encounter Care Teams Blockman Relationship Specialty Start Date End Date Steph Love MD [address] [place] [address] PCP - General Internal Medicine 02/01/21 Elizabeth Garzon MD [address] [place] [address] Dr [address] [place] [address] OBGYN Obstetrics and Gynecology 02/01/21 documented as of this encounter
--- OUTSIDE RECORDS SUMMARY | 2024-05-06 08:57 | XMS_ITS | Encounter Summary ---
Author Organization [facility] Address [address] [place] [address] Care Team Providers Care Market Research Worker Name Role Phone Steph Love MD Primary Care Provider [phone]- [phone] Elizabeth Garzon MD Unavailable [phone] Encounter Details Date Type Department Care Team (Late st Contact Info) Description 04/03/2024 Scanned Document [facility] PRIMARY CARE SCAN Veronica Rose MD 2 [facility] [address] Shin [address] [place] [address] Social History Tobacco Use Types Packs/Day Years [...] Description 07/14/2024 8:15 AM EDT Office Visit [address] [place] [phone] Steph Love MD [address] [address] 10/15/2024 1:30 PM EDT Telemedicine [facility] Endocrinology [place] 190 [facility] [address] [place] [phone] Ruy Larsen MD [address] [facility] N [facility] 103 [place] [address] documented as of this encounter Visit Diagnoses Not on filedocumented in this encounter Care Teams Market Research Worker Relationship Specialty Start Date End Date Steph Love MD [address] [place] [address] PCP - General Internal Medicine 02/01/21 Elizabeth Garzon MD [address] [place] [address] [place] [address] OBGYN Obstetrics and Gynecology 02/01/21 documented as of this encounter
--- OUTSIDE RECORDS SUMMARY | 2024-05-06 08:57 | XMS_ITS | Encounter Summary ---
Author Organization [facility] Address [address] [place] [address] Care Team Providers Care Performance Improvement Consultant Name Role Phone Pcp, No Primary Care Provider Unavailanalisa e Steph Love MD Primary Care Provider [phone]- [phone] Elizabeth Garzon MD Unavailable [phone] Encounter Details Date Type Department Care Team (Late st Contact Info) Description 11/16/2020 Scanned Document [address] [phone] Provider, Generic Social History Tobacco Use Types [...] 07/14/2024 8:15 AM EDT Office Visit [address] [phone] Steph Love MD [address] 959432 10/15/2024 1:30 PM EDT Telemedicine [facility] Endocrinology [address] [phone] Ruy Larsen MD [address] [place] [place] [address] documented as of this encounter Procedures Procedure Name Priority Date/Time Associated Diagnosis Comments LAB RESULT 11/17/2020 LAB RESULT 11/17/2020 LAB RESULT 11/16/2020 LAB RESULT 11/16/2020 documented in this encounter Results * LAB RESULT (11/17/2020) Narrative 11/17/2020 Ordered by an unspecified provider. Generic Provider HX AMB PROCEDURES * LAB RESULT (11/17/2020) 11/17/2020 Maite Read - 11/17/2020 Ordered by an unspecified provider. Generic Provider HX AMB PROCEDURES * LAB RESULT (11/16/2020) 11/16/2020 Maite Read - 11/16/2020 Ordered by an unspecified provider. Generic Provider HX AMB PROCEDURES * LAB RESULT (11/16/2020) 11/16/2020 Maite Read - 11/16/2020 Ordered by an unspecified provider. Generic Provider HX AMB PROCEDURES documented in this encounter Visit Diagnoses Not on filedocumented in this encounter Care Teams Performance Improvement Consultant Relationship Specialty Start Date End Date Pcp, No PCP - General General Medicine 12/29/20 01/31/21 Steph Love MD [address] [place] [address] PCP - General Internal Medicine 02/01/21 Elizabeth Garzon MD 2 [facility] [place] [address] OBGYN Obstetrics and Gynecology 02/01/21 documented as of this encounter
--- OUTSIDE RECORDS SUMMARY | 2024-05-06 08:57 | XMS_ITS | Encounter Summary ---
Author Organization [facility] Address [address] [place] [address] Care Team Providers Care Manager Budget Name Role Phone Pcp, No Primary Care Provider Unavailanalisa e Steph Love MD Primary Care Provider [phone]- [phone] Elizabeth Garzon MD Unavailable [phone] Encounter Details Date Type Department Care Team (Late st Contact Info) Description 11/30/2020 Scanned Document [address] [phone] Provider, Generic Social History Tobacco Use Types [...] Description 07/14/2024 8:15 AM EDT Office Visit [address] [phone] Steph Love MD [address] 474672 10/15/2024 1:30 PM EDT Telemedicine [facility] Endocrinology [address] [phone] Ruy Larsen MD 190 [facility] 103 [place] [address] documented as of this encounter Visit Diagnoses Not on filedocumented in this encounter Care Teams Manager Budget Relationship Specialty Start Date End Date Pcp, No PCP - General General Medicine 12/29/20 01/31/21 Steph Love MD [address] [place] [address] PCP - General Internal Medicine 02/01/21 Elizabeth Garzon MD [address] [place] [address] Dr Shin [address] [place] [address] OBGYN Obstetrics and Gynecology 02/01/21 documented as of this encounter
--- OUTSIDE RECORDS SUMMARY | 2024-05-06 08:57 | XMS_ITS | Encounter Summary ---
Author Organization [facility] Address [address] [place] [address] Care Team Providers Care Board Mixer Tender Name Role Phone Pcp, No Primary Care Provider Unavailanalisa e Steph Love MD Primary Care Provider [phone] Elizabeth Garzon MD Unavailable [phone] Encounter Details Date Type Department Care Team (Late st Contact Info) Description 11/11/2019 Scanned Document [address] [phone] Provider, Generic Social History Tobacco Use Types Packs/Day Years Used Date Smoking Tobacco: Never Assessed Sex and Gender Information Value Date Recorded Sex Assigned at Female 12/31/2023 3:01 PM EDT Gender Identity Female 12/31/2023 3:01 PM EDT Sexual Orientation Heterosexual (straight) 12/30 3:01 PM EDT documented as of this encounter Plan of Treatment Upcoming Encounters Date Type Department Care Team ([facility] Contact Info) Description 07/14/2024 8:15 AM EDT Office Visit [address] [place] [phone] Steph Love MD [address] [place] [address] [address] [place] [address] 10/15/2024 1:30 PM EDT Telemedicine [facility] Endocrinology [address] [phone] Ruy Larsen MD [address] [facility] [address] [place] [address] documented as of this encounter Procedures Procedure Name Priority Date/Time Associated Diagnosis Comments MRI EXTERNAL RESULT 11/11/2019 documented in this encounter Results * MRI EXTERNAL RESULT (11/11/2019) Anatomical Region Laterality Modality Magnetic Resonan ce Narrative 11/11/2019 Ordered by an unspecified provider. Generic Provider IMG MRI ORDERABLES documented in this encounter Visit Diagnoses Not on filedocumented in this encounter Care Teams Board Mixer Tender Relationship Specialty Start Date End Date Pcp, No PCP - General General Medicine 12/29/20 01/31/21 Steph Love MD [address] [place] [address] PCP - General Internal Medicine 02/01/21 Elizabeth Garzon MD [address] [place] [address] [place] [address] OBGYN Obstetrics and Gynecology 02/01/21 documented as of this encounter
--- OUTSIDE RECORDS SUMMARY | 2024-05-06 08:57 | XMS_ITS | Clinical Summary ---
Author Organization Formerly [facility] Address [address] [place], [place] [id number] Care Team Providers Care Superintendent Maintenance Name Role Phone Steph Love MD Primary Care Provider [phone] Elizabeth Garzon MD Unavailable [phone] Allergies Active Allergy Reactions Criticality Noted Date Comments Coconut Hives Medium 02/01/2021 Coconut (Cocos Nucifera) Hives Medium 11/18/2020 Escitalopram Other (See Comments) 11/18/2020 Medications Medication Sig Dispensed Refills Start Date End Date Status albuterol (PROVENTIL HFA; VENTOLIN HFA) 108 (90 Base) MCG/ACT inhalerIndication s:Chest pressure,Environm ental allergies,Uncompl icated asthma, unspecified asthma severity, unspecified whether persistent Inhale 2 puffs 4 (four) times a day. 1 each 3 Active lisinopril (PRINIVIL,ZeSTRIL ) 20 MG tabletIndications :Primary hypertension Take 1 tablet (20 mg total) by mouth daily. 90 tablet 1 4 Active atorvastatin (LIPITOR) 10 MG tabletIndications :Hypercholesterol emia Take 1 tablet (10 mg total) by mouth daily. 90 tablet 1 4 Active montelukast (SINGULAIR) 10 MG tabletIndications :Environmental allergies Take 1 tablet (10 mg total) by mouth nightly. 30 tablet 1 4 Active sertraline (ZOLOFT) 100 MG tabletIndications :Depression with anxiety TAKE ONE TABLET BY MOUTH EVERY DAY 90 tablet 4 Active tirzepatide (MOUNJARO) 7.5 mg/0.5 mL pen-injectorIndic ations:Type 2 diabetes mellitus without complication, without long-term current use of insulin (HCC) Inject 1 Pen (7.5 mg total) under the skin once a week. 2 mL 3 5 Active Mounjaro 5 MG/0.5ML pen-injectorIndic ations:Type 2 diabetes mellitus without complication, without long-term current use of insulin (HCC) INJECT 5 MG SUBCUTANEOUSLY EVERY WEEK DIRECTED. ROTATE INJECTION SITES IN THE ABDOMEN, THIGH OR UPPER ARM 2 mL 5 04/16/19 25 Discontinued Active Problems Problem Noted Date Diagnosed Date Hypertension, essential, benign 04/15/2024 Subclinical hyperthyroidism 04/15/2024 Type 2 diabetes mellitus wit hout complication, without long-term current use of insulin 08/01/2022 Obesity 02/01/2021 Cervical spondylosis without myelopathy 02/02/20 21 Diaphragmatic hernia 02/01/2021 Displacement of cervical int ervertebral disc without myelopathy 02/01/2021 Vitamin D deficiency 02/01/2021 Ureteric stone 02/01/2021 Severe recurrent major depre ssion without psychotic features 02/01/2021 Polycystic ovaries 02/01/2021 Obstructive sleep apnea syndrome 02/01/2021 Non-toxic goiter 02/01/2021 Nonalcoholic steatohepatitis (ENRIQUEZ) 02/01/2021 Gastro-esophageal reflux disease without esophag itis 02/01/2021 History of gestational diabetes mellitus 021 Impaired fasting glucose 02/01/2021 Intramural leiomyoma of uterus 02/01/2021 Iron deficiency anemia 02/01/2021 Encounters Date Type Department Care Team Description 04/16/2024 8:15 AM EST Office Visit [address] [phone] Steph Love MD Type 2 diabetes mellitus without complication, without long-term current use of insulin ([facility]) (Primary Dx); Essential hypertension; Hypercholesterolemia; Depression with anxiety; Morbid obesity with BMI of 40.0-44.9, adult (HCC); Subclinical hyperthyroidism 04/15/2024 8:30 AM EST Telemedicine [facility] Endocrinology [address] [place] [address] Ruy Larsen MD Type 2 diabetes mellitus without complication, without long-term current use of insulin (HCC) (Primary Dx); Subclinical hyperthyroidism; Polycystic ovaries; Hypertension, essential, benign; Nonalcoholic steatohepatitis (ENRIQUEZ); Class 3 severe obesity with body mass index (BMI) of 40.0 to 44.9 in adult, unspecified obesity type, unspecified whether serious comorbidity present (HCC) 04/15/2024 Travel 04/03/2024 2:30 PM EST Office Visit [address] [place] [phone] Veronica Rose MD Inflamed skin tag (Primary Dx) 04/03/2024 Scanned Document [facility]AN Veronica Rose MD 04/03/2024 Travel 03/20/2024 Refill [facility] [address] [facility] [address] [place] [phone] Steph Love MD Type 2 diabetes mellitus without complication, without long-term current use of insulin (HCC) 03/18/[address] [phone] Steph Love MD Referral; Appointment 02/28/2024 Refill [facility] [address] [facility] [address] [place] [address] Steph Love MD Depression with anxiety from Last 3 Months Immunizations Name Administration Dates Next Due Covid-19 MRNA Vaccine - Pfizer 12+ (Purple Cap) 06/03/2020,05/14/2020 Influenza Whole 01/03/2019 Influenza, Quadrivalent (FLU AD) Adjuvanted Preservative Free IM 65 years and older 11/04/2019 Tdap 01/03/2019,12/21/2015 Family History Medical History Relation Name Comments Diabetes Father Hypertension Father Thyroid disease Father Relation Name Status Comments Father Social History Tobacco Use Types Packs/Day Years Used Date Smoking Tobacco: Never Smokeless Tobacco: Never Tobacco Cessation:Counseling Given: Not Answered Alcohol Use Standard Drinks/Week Comments Yes 0 (1 standard drink = 0.6 oz pur e alcohol) rarely [facility] Utilities Answer Date Recorded In the past [...] and Family Not on file 04/15/2024 Attends [employer] Not on file 04/15 Active Member [...] any time in the past 12 m [facility], were you homeless or living in a detention (including now)? No 04/15/2024 Education Answer Date Recorded What is the highest level of school you have completed or the highest degree you have received? Some college, no degree 04/15/2024 Sex and Gender Information Value Date Recorded Sex Assigned at Female 12/31/2023 3:01 PM EDT Gender Identity Female 12/31/2023 3:01 PM EDT Sexual Orientation Heterosexual (straight) 12/30 3:01 PM EDT Last Filed Vital Signs Vital Sign Reading [...] Mass Index 42.53 04/16/2024 8:10 AM EST Plan of Treatment Upcoming Encounters Date Type Department Care Team (Late st Contact Info) Description 07/14/2024 8:15 AM EDT Office Visit [facility] [address] [facility] [address] [place] [phone] Steph Love MD [address] [facility] [address] [place] [address] 10/15/2024 1:30 PM EDT Telemedicine [facility] Endocrinology [place] [address] [facility] [address] [place] [phone] Ruy Larsen MD [address] [facility] [address] [place], [place] [phone] Health Maintenance Due Date Last Done Comments Hepatitis C Virus Screening 1979 Foot Exam 1989 Hepatitis B Vaccines (1 of 3 - 19+ 3-dose series) 1998 Pneumococcal Vaccine: Pediatric (0-5 Years) and At-Risk Patients (6 to 49 Years) (1 of 2 - PCV) 1998 Mammogram 05/17/2023 05/16/2021, 01/09/2020 Influenza Vaccine 10/04/2023 11/04/2019, 01/03/2019 COVID-19 Vaccine (2023- season) 2023 06/03/2020, 05/14/2020 Colonoscopy 02/07/2024 Ophthalmology Exam 03/27/2024 03/27/2023, 0 03/22/2022 (Previously Completed), 08/08/2019 Physical 04/03/2024 04/03/2022 Hemoglobin A1C 10/07/2024 04/09/2024, 02/0 07/2024, 12/31/2023, Additional history exists Lipid Panel 02/01/2025 02/02/2024, 08/0 11/2023, 11/28/2022, Additional history exists Creatinine with GFR 04/09/2025 04/09/2024, 04/09/2024, 02/02/2024, Additional history exists Microalbumin/Creatinine Ratio Urine 04/09/2025 04/09/2024, 02/02/2024 Pap Smear (Ages 21-65) 07/13/2025 07/13/2022 DTaP/Tdap/Td Vaccines (3 - Td or Tdap) 01/03/2029 01/03/2019, 12/21/2015 HIV Screening Discontinued HPV Vaccines Aged Out No longer eligi ble based on patient's age to complete this topic Procedures Procedure Name Priority Date/Time Associated Diagnosis Comments MICROALBUMIN, CREATININE, URINE, RANDOM Routine 04/09/2024 9:06 AM EST Type 2 diabetes mellitus without complication, without long-term current use of insulin (HCC) COMPLETE BLOOD COUNT, WITH DIFFERENTIAL Routine 04/09/2024 9:06 AM EST Type 2 diabetes mellitus without complication, without long-term current use of insulin (HCC) COMPREHENSIVE METABOLIC PANEL Routine 04/09/2024 9:06 AM EST Type 2 diabetes mellitus without complication, without long-term current use of insulin (HCC) HEMOGLOBIN A1C Routine 04/09/2024 9:06 AM EST Type 2 diabetes mellitus without complication, without long-term current use of insulin (HCC) COMPREHENSIVE METABOLIC PANEL Routine 04/09/2024 9:05 AM EST Type 2 diabetes mellitus without complication, without long-term current use of insulin (HCC) THYROID PEROXIDASE AND THYROGLOBULIN ANTIBODIES Routine 04/09/2024 9:05 AM EST Type 2 diabetes mellitus without complication, without long-term current use of insulin (HCC) Low TSH level T4, FREE Routine 04/09/2024 9:05 AM EST Type 2 diabetes mellitus without complication, without long-term current use of insulin (HCC) Low TSH level T3, TOTAL Routine 04/09/2024 9:05 AM EST Type 2 diabetes mellitus without complication, without long-term current use of insulin (HCC) Low TSH level TSH, HIGHLY SENSITIVE Routine 04/09/2024 9:05 AM EST Type 2 diabetes mellitus without complication, without long-term current use of insulin (HCC) Low TSH level HEMOGLOBIN A1C Routine 04/09/2024 9:05 AM EST Type 2 diabetes mellitus without complication, without long-term current use of insulin (HCC) LIPID PANEL REFLEX DIRECT LDL Routine 02/02/2024 8:03 AM EST Type 2 diabetes mellitus without complication, without long-term current use of insulin (HCC) HX OPHTHALMOLOGY TESTING PROCEDURES Routine 03/27/2023 PATHOLOGY GYNECOLOGY Routine 07/13/2022 IMAGING BREAST/BX/MAMMO 05/16/2021 from Last 3 Months or Most Recently Relevant to Health Maintenance Results * Microalbumin, Creatinine, Urine, Random (04/09/2024 9:06 AM EST) Creatinine, Urine, Random 189 20 - 275 mg/dL [facility] Microalbumin, Urine, Random 0.9 See Note: mg/dL [facility] Comment: Reference Range: Reference Range Not established Microalbumin/Creat inine Ratio 5 <30 mg/g creat [facility] Comment: The ADA defines abnormalities in albumin excretion as follows: Albuminuria Category ?Result (mg/g creatinine) Normal to Mildly increased ?? <30 Moderately increased ? 30-299 Severely increased ? > OR = 300 The ADA recommends that at least two of three specimens collected within a 3-6 month period be abnormal before considering a patient to be within a diagnostic category. Urine Voided urine specimen / Unknown 04/09/2024 9:06 AM EST 04/09/2024 9:07 AM EST Narrative [facility] - 04/09/2024 11:34 PM EST FASTING:YES FASTING: YES Ruy Larsen MD URINE ORDERABLES [facility] [address] [place] [phone] * (ABNORMAL) Complete Blood Count, with Differential (04/09/2024 9:06 AM EST) [facility] White Blood Cell Count 9.3 3.8 - 10.8 Thousand/ uL [facility] Red Blood Cell Count 4.35 3.80 - 5.10 Million/u L [facility] Hemoglobin 11.8 11.7 - 15.5 g/dL [facility] Hematocrit 37.0 35.0 - 45.0 % [facility] MCV 85.1 80.0 - 100.0 fL [facility] MCH 27.1 27.0 - 33.0 pg [facility] MCHC 31.9(L) 32.0 - 36.0 g/dL [facility] Comment: For adults, a slight decrease in the calculated MCHC value (in the range of 30 to 32 g/dL) is most likely not clinically significant; however, it should be interpreted with caution in correlation with other red cell parameters and the patient's clinical condition. RDW 14.2 11.0 - 15.0 % [facility] Platelet Count 189 140 - 400 Thousand/ uL [facility] MPV 11.4 7.5 - 12.5 fL [facility] Abs Neutrophils Auto 6,510 1,500 - 7,800 cells/uL [facility] Abs Lymphocytes Auto 1,962 850 - 3,900 cells/uL [facility] Abs Monocytes Auto 595 200 - 950 cells/uL [facility] Abs Eosinophils Auto 195 15 - 500 cells/uL [facility] Abs Basophils Auto 37 0 - 200 cells/uL [facility] Neutrophils Auto 70 % [facility] Lymphocytes Auto 21.1 % [facility] Monocytes Auto 6.4 % [facility] Eosinophils Auto 2.1 % [facility] Basophils Auto 0.4 % [facility] Blood Blood specimen / Unknown 04/09/2024 9:06 AM EST 04/09/2024 9:07 AM EST Narrative [facility] - 04/09/2024 11:34 PM EST FASTING:YES FASTING: YES Ruy Larsen MD LAB BLOOD ORDERABLES Performing Organization Address City/State/[facility] Co de Phone Number [facility] [address] [place] [phone] * (ABNORMAL) Hemoglobin A1C (04/09/2024 9:06 AM EST) Only the most recent of2 resultswithin the time period is included. Hemoglobin A1C 6.1(H) <5.7 % of total Hgb [facility] Comment: For someone without known diabetes, a hemoglobin A1c value between 5.7% and 6.4% is consistent with prediabetes and should be confirmed with a follow-up test. For someone with known diabetes, a value <7% indicates that their diabetes is well controlled. A1c targets should be individualized based on duration of diabetes, age, comorbid conditions, and other considerations. This assay result is consistent with an increased risk of diabetes. Currently, no consensus exists regarding use of hemoglobin A1c for diagnosis of diabetes for children. Blood Blood specimen / Unknown 04/09/2024 9:06 AM EST 04/09/2024 9:07 AM EST Narrative [facility] - 04/09/2024 11:34 PM EST FASTING:YES FASTING: YES Ruy Larsen MD LAB BLOOD ORDERABLES [facility] [address] [place] [address] * (ABNORMAL) Comprehensive Metabolic Panel (04/09/2024 9:06 AM EST) Only the most recent of2 resultswithin the time period is included. [facility] Glucose 123(H) 65 - 99 mg/dL [facility] Comment: ? Fasting reference interval For someone without known diabetes, a glucose value between 100 and 125 mg/dL is consistent with prediabetes and should be confirmed with a follow-up test. Blood Urea Nitrogen (BUN) 9 7 - 25 mg/dL [facility] Creatinine 0.60 0.50 - 0.99 mg/dL [facility] Creatinine w/ eGFR 113 > OR = 60 mL/min/1. 73m2 [facility] BUN/Creatinine Ratio SEE NOTE: 22 (calc) [facility] Comment: ?? Not Reported: BUN and Creatinine are within ?? reference range. ? Sodium 138 135 - 146 mmol/L [facility] Potassium 4.0 3.5 - 5.3 mmol/L [facility] Chloride 102 98 - 110 mmol/L [facility] CO2 27 20 - 32 mmol/L [facility] Calcium 9.0 8.6 - 10.2 mg/dL [facility] Protein, Total 6.5 6.1 - 8.1 g/dL [facility] Albumin 4.2 3.6 - 5.1 g/dL [facility] Globulin 2.3 1.9 - 3.7 g/dL (calc) [facility] Albumin/Globuli n Ratio 1.8 1.0 - 2.5 (calc) [facility] Bilirubin, Total 0.6 0.2 - 1.2 mg/dL [facility] Alkaline Phosphatase 69 31 - 125 U/L [facility] Aspartate Aminotrans (AST) 12 10 - 35 U/L [facility] Alanine Aminotrans (ALT) 14 6 - 29 U/L [facility] Blood Blood specimen / Unknown 04/09/2024 9:06 AM EST 04/09/2024 9:07 AM EST Narrative [facility] - 04/09/2024 11:34 PM EST FASTING:YES FASTING: YES Ruy Larsen MD LAB BLOOD ORDERABLES Performing Organization Address [facility] Co de Phone Number [facility] [address] [place] [phone] * Thyroid Peroxidase and Thyroglobulin Antibodies (04/09/2024 9:05 AM EST) Thyroglobulin AB <1 < or = 1 IU/mL [facility] Thyroid Peroxidase Antibody <1 <9 IU/mL [facility] 04/09/2024 9:05 AM EST 04/09/2024 9:05 AM EST Narrative [facility] - 04/10/2024 3:03 AM EST FASTING:YES FASTING: YES Steph Love MD LAB BLOOD ORDERABL ES Performing Organization Address [facility]/ZIP Co de Phone Number [facility] [address] [place] [phone] * T3, Total (04/09/2024 9:05 AM EST) T3, Total 115 76 - 181 ng/dL [facility] Blood 04/09/2024 9:05 AM EST 04/09/2024 9:05 AM EST Narrative [facility] - 04/10/2024 3:03 AM EST FASTING:YES FASTING: YES Steph Love MD LAB BLOOD ORDERABL ES Performing Organization Address [facility] Co de Phone Number [facility] [address] [place] [phone] * (ABNORMAL) TSH, HIGHLY SENSITIVE (04/09/2024 9:05 AM EST) TSH, Highly Sensitive 0.08(L) mIU/L [facility] Comment: ?Reference Range ?> or = 20 Years ??0.40-4.50 ? Ranges ?First trimester ?0.26-2.66 ?Second trimester ?? 0.55-2.73 ?Third trimester ?0.43-2.91 Blood Blood specimen / Unknown 04/09/2024 9:05 AM EST 04/09/2024 9:05 AM EST Narrative [facility] - 04/10/2024 3:03 AM EST FASTING:YES FASTING: YES Steph Love MD LAB BLOOD ORDERABL ES Performing Organization Address City/[facility]/ZIP Co de Phone Number [facility] [address] [place] [phone] * T4, FREE (04/09/2024 9:05 AM EST) T4, Free 1.1 0.8 - 1.8 ng/dL [facility] Blood 04/09/2024 9:05 AM EST 04/09/2024 9:05 AM EST Narrative [facility] - 04/10/2024 3:03 AM EST FASTING:YES FASTING: YES Steph Love MD LAB BLOOD ORDERABL ES Performing Organization Address [facility]/ZIP Co de Phone Number [facility] [address] [place] [phone] * (ABNORMAL) Lipid Panel Reflex Direct LDL (02/02/2024 8:03 AM EST) Cholesterol, Total 172 <200 mg/dL [facility] Cholesterol, HDL 51 > OR = 50 mg/dL [facility] Triglycerides 209(H) <150 mg/dL [facility] Comment: If a non-fasting specimen was collected, consider repeat triglyceride testing on a fasting specimen if clinically indicated. Parth et al. J. of Clin. Lipidol. 2015;9:129-169. LDL Cholesterol 91 mg/dL (calc) [facility] Comment: Reference range: <100 Desirable range <100 mg/dL for primary prevention; ?? <70 mg/dL for patients with CHD or diabetic patients with > or = 2 CHD risk factors. LDL-C is now calculated using the Dmitry-Kaye calculation, which is a validated novel method providing better accuracy than the Friedewald equation in the estimation of LDL-C. Dmitry SS et al. ROSS. 2013;310(19): 8484-5248 (http://education.TestCred/faq/ABJ019) Cholesterol/HDL Ratio 3.4 <5.0 (calc) [facility] Non HDL Chol. (LDL+VLDL) 121 <130 mg/dL (calc) [facility] Comment: For patients with diabetes plus 1 major ASCVD risk factor, treating to a non-HDL-C goal of <100 mg/dL (LDL-C of <70 mg/dL) is considered a therapeutic option. Blood Blood specimen / Unknown 02/02/2024 8:03 AM EST 02/02/2024 8:03 AM EST Narrative [facility] - 02/04/2024 3:49 PM EST FASTING:YES FASTING: YES Steph Love MD LAB BLOOD ORDERABL ES Performing Organization Address [facility]/ZIP Co de Phone Number [facility] [address] [place] [phone] * OPHTHALMOLOGY TESTING PROCEDURES (03/27/2023) Scan Ophthalmology HX AMB PROCEDURES * PATHOLOGY GYNECOLOGY (07/13/2022) External Provider MD LE HX PATH PROCEDU RES * IMAGING BREAST/BX/MAMMO (05/16/2021) Anatomical Region Laterality Modality Other 05/16/2021 Narrative 05/16/2021 Ordered by an unspecified provider. Generic Provider IMG LEGACY PROCEDURE S from Last 3 Months or Most Recently Relevant to Health Maintenance Care Teams Superintendent Maintenance Relationship Specialty Start Date End Date Steph Love MD [address] [place] [address] PCP - General Internal Medicine 02/01/21 Elizabeth Garzon MD [address] [place] [address] [place] [address] OBGYN Obstetrics and Gynecology 02/01/21
--- OUTSIDE RECORDS SUMMARY | 2024-05-06 08:57 | XMS_ITS | Encounter Summary ---
Author Organization Formerly [facility] Address [address] [place] [address] Care Team Providers Care Fertilizer Applicator Name Role Phone Pcp, No Primary Care Provider Unavailanalisa e Steph Love MD Primary Care Provider [phone] Elizabeth Garzon MD Unavailable [phone] Encounter Details Date Type Department Care Team (Late st Contact Info) Description 04/23/2019 Scanned Document [address] [phone] Urology, Scan Social History Tobacco Use Types Packs/Day [...] Description 07/14/2024 8:15 AM EDT Office Visit [address] [phone] Steph Love MD [address] [place] [address] 10/15/2024 1:[address] [facility] Endocrinology [address] [phone] Ruy Larsen MD [address] [facility] [address] [place] [address] documented as of this encounter Visit Diagnoses Not on filedocumented in this encounter Care Teams Fertilizer Applicator Relationship Specialty Start Date End Date Pcp, No PCP - General General Medicine 12/29/20 01/31/21 Steph Love MD [address] [place] [address] PCP - General Internal Medicine 02/01/21 Elizabeth Garzon MD [address] [place] [address] [address] [place] [address] OBGYN Obstetrics and Gynecology 02/01/21 documented as of this encounter
--- OUTSIDE RECORDS SUMMARY | 2024-05-06 08:57 | XMS_ITS | Encounter Summary ---
Author Organization [facility] Address [address] [place] [address] Care Team Providers Care Bus Operator Name Role Phone Steph Love MD Primary Care Provider [phone] Elizabeth Garzon MD Unavailable [phone] Encounter Details Date Type Department Care Team (Latest Contact Info) Description 04/15/2024 Travel Social History Tobacco Use Types Packs/Day Years Used Date Smoking Tobacco: Never Smokeless Tobacco: Never Alcohol Use Standard Drinks/Week Comments Yes 0 (1 standard drink = 0.6 oz pur e alcohol) rarely [facility] Utilities Answer Date Recorded In the past 12 months has e electric, gas, oil, or water company [...] and Family Not on file 04/15/2024 Attends [employer] Not on file 04/15 Active Member [...] any time in the past [address] [facility], were you homeless or living in a jail (including now)? No 04/15/2024 Education Answer Date [...] Description 07/14/2024 8:15 AM EDT Office Visit [address] [place] [phone] Steph Love MD 100 [facility] [address] [place] [address] 10/15/2024 1:[address] [facility] Endocrinology [address] [phone] Ruy Larsen MD 190 [facility] N [facility] 103 [place] [address] documented as of this encounter Visit Diagnoses Not on filedocumented in this encounter Care Teams Bus Operator Relationship Specialty Start Date End Date Steph Love MD [address] [place] [address] PCP - General Internal Medicine 02/01/21 Elizabeth Garzon MD [address] [place] [address] Dr Shin [address] [place] [address] OBGYN Obstetrics and Gynecology 02/01/21 documented as of this encounter
--- OUTSIDE RECORDS SUMMARY | 2024-05-06 08:58 | XMS_ITS | Encounter Summary ---
Author Organization [facility] Address [address] [place] [address] Care Team Providers Care Luncheonette Operator Name Role Phone Steph Love MD Primary Care Provider [phone] Elizabeth Garzon MD Unavailable [phone] Reason for Visit * Reason Comments Medication Refill Encounter Details Date Type Department Care Team (Late Contact Info) Description 10/11/[address] [phone] Cheyenne Aguilera, INSIGHTS STRATEGIST [address] [address] Environmental allergies Social History Tobacco Use Types Packs/Day Years [...] Description 07/14/2024 8:15 AM EDT Office Visit [address] [phone] MaSteph iqbal MD [address] [place] [address] 10/15/2024 1:30 PM EDT Telemedicine [facility] Endocrinology [place] [address] [facility] 103 [place] [address] Ruy Larsen MD [address] [facility] 103 [place], [place] [phone] documented as of this encounter Visit Diagnoses Diagnosis Environmental allergies Other allergy, other than to medicinal agents documented in this encounter Care Teams Luncheonette Operator Relationship Specialty Start Date End Date Steph Love MD [address] [place] [address] PCP - General Internal Medicine 02/01/21 Elizabeth Garzon MD [address] [place] [address] Dr Shin [address] [place] [address] OBGYN Obstetrics and Gynecology 02/01/21 documented as of this encounter
--- OUTSIDE RECORDS SUMMARY | 2024-05-06 08:58 | XMS_ITS | Encounter Summary ---
Author Organization [facility] Address [address] [place] [address] Care Team Providers Care Casino Assistant Manager Name Role Phone Pcp, No Primary Care Provider Unavailanalisa e Steph Love MD Primary Care Provider [phone] Elizabeth Garzon MD Unavailable [phone] Encounter Details Date Type Department Care Team (Late st Contact Info) Description 03/23/2020 Scanned Document [address] [phone] Provider, Generic Social History Tobacco Use Types [...] Description 07/14/2024 8:15 AM EDT Office Visit [address] [phone] Steph Love MD [address] [phone] 10/15/2024 1:30 PM EDT Telemedicine [facility] Endocrinology [address] [phone] Ruy Larsen MD 190 [facility] 103 [place] [address] documented as of this encounter Visit Diagnoses Not on filedocumented in this encounter Care Teams Casino Assistant Manager Relationship Specialty Start Date End Date Pcp, No PCP - General General Medicine 12/29/20 01/31/21 Steph Love MD [address] [place] [address] PCP - General Internal Medicine 02/01/21 Elizabeth Garzon MD [address] [place] [address] Dr Shin [address] [place] [address] OBGYN Obstetrics and Gynecology 02/01/21 documented as of this encounter
--- OUTSIDE RECORDS SUMMARY | 2024-05-06 08:58 | XMS_ITS | Encounter Summary ---
Author Organization [facility] Address [address] [place] [address] Care Team Providers Care Food Service Tray Attendant Name Role Phone Pcp, No Primary Care Provider Unavailanalisa e Steph Love MD Primary Care Provider [phone] Elizabeth Garzon MD Unavailable [phone] Encounter Details Date Type Department Care Team (Late st Contact Info) Description 06/09/2020 Scanned Document [address] [phone] Provider, Generic Social History Tobacco Use Types [...] 07/14/2024 8:15 AM EDT Office Visit [address] [phone] Steph Love MD [address] [phone] 10/15/2024 1:30 PM EDT Telemedicine [facility] Endocrinology [address] [phone] Ruy Larsen MD 190 [facility] 103 [place] [address] documented as of this encounter Visit Diagnoses Not on filedocumented in this encounter Care Teams Food Service Tray Attendant Relationship Specialty Start Date End Date Pcp, No PCP - General General Medicine 12/29/20 01/31/21 Steph Love MD [address] [place] [address] PCP - General Internal Medicine 02/01/21 Elizabeth Garzon MD [address] [place] [address] Dr Shin [address] [place] [address] OBGYN Obstetrics and Gynecology 02/01/21 documented as of this encounter
--- OUTSIDE RECORDS SUMMARY | 2024-05-06 08:58 | XMS_ITS | Encounter Summary ---
Author Organization [facility] Address [address] [place] [address] Care Team Providers Care Canvas Cutter Hand Name Role Phone Steph Love MD Primary Care Provider [phone] Elizabeth Garzon MD Unavailable [phone] Encounter Details Date Type Department Care Team ([facility] Contact Info) Description 07/13/2022 Scanned Document [facility] CARDIOLOGY SCAN Cardiology, Scan Social History [...] suspected to have Coronavirus/COVID-19? No / Unsure 06/15/2022 11:04 AM EDT documented as of this encounter Plan of Treatment Upcoming Encounters Date Type Department Care Team ([facility] Contact Info) Description 07/14/2024 8:15 AM EDT Office Visit [address] [place] [phone] Steph Love MD [address] [place] [address] [place] [address] 10/15/2024 1:30 PM EDT Telemedicine [facility] Endocrinology [place] 190 [facility] [address] [place] [address] Ruy Larsen MD 190 [facility] 103 [place], [place] [phone] documented as of this encounter Visit Diagnoses Not on filedocumented in this encounter Care Teams Canvas Cutter Hand Relationship Specialty Start Date End Date Steph Love MD [address] [place] [address] PCP - General Internal Medicine 02/01/21 Elizabeth Garzon MD [address] [place] [address] [place] [id number] OBGYN Obstetrics and Gynecology 02/01/21 documented as of this encounter
--- OUTSIDE RECORDS SUMMARY | 2024-05-06 08:58 | XMS_ITS | Encounter Summary ---
Author Organization [facility] Address [address] [place] [address] Care Team Providers Care Weigh Tank Operator Name Role Phone Steph Love MD Primary Care Provider [phone] Elizabeth Garzon MD Unavailable [phone] Encounter Details Date Type Department Care Team (Late st Contact Info) Description 11/21/[address] [phone] Steph Love MD [address] [place] [address] Social History Tobacco Use Types Packs/Day Years [...] PM EDT documented as of this encounter Miscellaneous Notes * Telephone Encounter - Samira Vega MA - 11/22/2022 9:07 AM EDT Lab orders placed, t/c to Pt and aware. * Telephone Encounter - Steph Love MD - 11/21/2022 2:52 PM EDT Please order A1c, CMP, lipid panel (Dx: daibetes) and cbc without diff and iron panel (dx: anemia) * Telephone Encounter - Samira Vega MA - 11/21/2022 1:47 PM EDT Please advise, active orders for CMP and Lipid, last A1C was done 08/03/22. Next appt 12/04/22- would you like to add the A1C to the labs? * Telephone Encounter - Roya Mccrary - 11/21/2022 1:05 PM EDT Pt stated asked her to call before her appt for labs. She stated there should be an order for A1C and other labs. There are active orders, pt wants to know if anything else needs to be added documented in this encounter Plan of Treatment Upcoming Encounters Date Type Department Care Team (Late st Contact Info) Description 07/14/2024 8:15 AM EDT Office Visit [facility] 100 [facility] [address] [place] [phone] Steph Love MD 100 [facility] [address] [place] [address] 10/15/2024 1:30 PM EDT Telemedicine [facility] Endocrinology [place] 190 [facility] [address] [place] [address] Ruy Larsen MD 190 [facility] 103 [place], [place] [phone] documented as of this encounter Visit Diagnoses Not on filedocumented in this encounter Care Teams Weigh Tank Operator Relationship Specialty Start Date End Date Steph Love MD [address] [place] [address] PCP - General Internal Medicine 02/01/21 Elizabeth Garzon MD [address] [place] [address] [place] [address] OBGYN Obstetrics and Gynecology 02/01/21 documented as of this encounter
--- OUTSIDE RECORDS SUMMARY | 2024-05-06 08:58 | XMS_ITS | Encounter Summary ---
Author Organization [facility] Address [address] [place] [address] Care Team Providers Care Invoice Machine Operator Name Role Phone Pcp, No Primary Care Provider Unavailanalisa e Steph Love MD Primary Care Provider [phone] Elizabeth Garzon MD Unavailable [phone] Encounter Details Date Type Department Care Team (Late st Contact Info) Description 08/09/2020 Scanned Document [address] [phone] Provider, Generic Social History Tobacco Use Types [...] 07/14/2024 8:15 AM EDT Office Visit [address] [phone] Steph Love MD [address] [phone] 10/15/2024 1:30 PM EDT Telemedicine [facility] Endocrinology [address] [phone] Ruy Larsen MD 190 [facility] 103 [place] [address] documented as of this encounter Visit Diagnoses Not on filedocumented in this encounter Care Teams Invoice Machine Operator Relationship Specialty Start Date End Date Pcp, No PCP - General General Medicine 12/29/20 01/31/21 Steph Love MD [address] [place] [address] PCP - General Internal Medicine 02/01/21 Elizabeth Garzon MD [address] [place] [address] Dr Shin [address] [place] [address] OBGYN Obstetrics and Gynecology 02/01/21 documented as of this encounter
== END 2024-05-06 08:32 | disposition home or self-care (01) ==
LOC: HO.HMGCX 08:31
PROVIDERS: PCP Internal Medicine; Visit Provider Nurse Practitioner Family
DX: N20.0 Calculus of kidney (principal)
CPT/HCPCS: 76775

== ENCOUNTER → 2024-05-06 08:33 | Outpatient (BNV) | payer BC, SELFPAY | PROVIDERS: PCP Internal Medicine; Visit Provider Radiology Diagnostic Radiology | DX: N20.0 Calculus of kidney (principal) | CPT/HCPCS: 76775 ==

== ENCOUNTER 2024-05-13 11:25 | Outpatient (AMB) | payer BC, SELFPAY ==
--- NOTE | 2024-05-13 11:27 | MHC.OFFVIS ---
Intake Visit Reasons: 6m/US(set) Intake Note: Patient presents to office today for 6 month/US/kidney stones Imagin05/06/24 Urology Medications: none Blood Thinner: none Antibiotic Allergy: none Phlebotomist Supervisor/Instructor Required: No Accompanied by: Self / Same As Patient Allergies coconut Allergy (Intermediate, Verified 05/13/24 15:12) DIFFICULTY BREATHING/HIVES coconut Allergy (Unknown, Uncoded 05/13/24 15:12) Unknown Medication List - Last Reconciled 05/13/24 by ISABELL Garza albuterol sulfate 90 mcg/actuation inhalation atorvastatin 10 mg PO DAILY lisinopril 20 mg PO DAILY montelukast mg PO DAILY sertraline 100 mg PO DAILY tirzepatide (Mounjaro) mg subcut HPI Comments Details: Tiny is a pleasant 44-year-old female patient of Dr. Love who was accompanied by her son and at today's office visit. She presents to the office today for follow-up of her nephrolithiasis. In discussion with the patient today she reports to be doing and feeling well. She denies having had any bothersome urinary issues or concerns since her last office visit here. She discusses at length her recent intentional weight loss as she has started Mounjaro. She reports having discontinued her metformin as she had been having GI issues. She reports better control of her sugars and feels since she has lost weight she has been in better spirits. Recent renal imaging results reviewed with the patient today. 05/26 bilateral kidneys are normal in size and echotexture. Bilateral kidneys with small nonobstructive calculi within the kidneys no hydronephrosis noted bilaterally. She reports she continues to attempt to drink plenty of water daily. She also reports adding 1 oz of lemon juice to water daily. In office urinalysis results reviewed with the patient today. She denies urinary urgency, incontinence, nocturia, hematuria, dysuria, foul smelling urine, changes to urinary stream, flank pain, fever, and or chills. We discussed continuation of surveillance monitoring instability and nephrolithiasis in the last 6 months. We discussed metabolic workup. She otherwise offers no other issues or concerns at time. [facility] Medical History Hydronephrosis with ureteropelvic junction (UPJ) obstruction Surgical History H/O: hysterectomy History of surgery Review of Systems Const Reports as per HPI Eyes Reports no additional complaints ENT Reports no additional complaints Card Reports no additional complaints Resp Reports no additional complaints GI Reports as per HPI Reports as per HPI Neuro Reports no additional complaints Physical Exam Const General: cooperative, healthy appearing, comfortable, no acute distress, well developed, alert and awake Nutritional Appearance: overweight Orientation/consciousness: patient oriented x3 Limitations: no limitations HEENT Head: Yes normal to inspection, Yes normocephalic and Yes atraumatic Ears: hearing grossly normal bilaterally Neck Neck: Yes normal visual inspection and Yes trachea midline Chest Chest palpation & inspection: normal inspection of the chest Resp Effort & Inspection: normal respiratory effort and able to speak in complete sentences Cardio Rate: regular rate General: Yes no CVA tenderness Back/Spine/Pelvis Back: no CVA tenderness Neuro General: patient oriented x3 Extrem General: Yes normal to inspection Psych Appearance: grossly normal and well kempt Mental Status: mental status grossly normal Speech and movement: Normal speech and movement present and Clear speech present Affect: normal affect Attitude: cooperative Thought process: Normal thought process present Thought content: Normal thought content present Insight: Fair insight present (Psych) Judgement: Fair judgement present (Psych) Results AMB Urinalysis, Automated UA Leukoctes 0 Familia/uL Last Edit by Melissa Perry on 05/13/24 12:05 UA Nitrite Negative Last Edit by Melissa Perry on 05/13/24 12:05 UA Urobilinogen 3.5 mg/dL Last Edit by Melissa Perry on 05/13/24 12:05 UA Protein 1 mg/dL Last Edit by Melissa Perry on 05/13/24 12:05 UA pH 7.0 Last Edit by Melissa Perry on 05/13/24 12:05 UA Blood 10 Talon/uL Last Edit by Melissa Perry on 05/13/24 12:05 UA Specific [place] 1.010 Last Edit by Melissa Perry on 05/13/24 12:05 UA Ketone Negative Last Edit by Melissa Perry on 05/13/24 12:05 UA Bilirubin 0 mg/dL Last Edit by Melissa Perry on 05/13/24 12:05 UA Glucose 0 mg/dL Last Edit by Melissa Perry on 05/13/24 12:05 Results Reviewed Results Reviewed: Laboratory Last Values Urine pH (Auto) 7.0 05/13/24 12:01 Specific [place] (Auto) 1.010 05/13/24 12:01 Urine Protein (Auto) 1 mg/dL 05/13/24 12:01 Glucose (UA)(Auto) 0 mg/dL 05/13/24 12:01 Urine Ketones (Auto) Negative 05/13/24 12:01 Urine Blood (Auto) 10 Talon/uL 05/13/24 12:01 Urine Nitrite (Auto) Negative 05/13/24 12:01 Urine Bilirubin (Auto) 0 mg/dL 05/13/24 12:01 Urine Urobilinogen (Auto) 3.5 mg/dL 05/13/24 12:01 Leukocyte Esterase (Auto) 0 Familia/uL 05/13/24 12:01 Date of Service: 05/06/24 CLINICAL HISTORY: N20.0 - Calculus of kidney US Renal Comparison: None Findings: Right kidney normal size and echotexture, 11.7 cm length. Left kidney normal size and echotexture, 11.6 cm length. 4 mm calculus within the midportion of the right kidney. 5 mm calculus within the upper pole of the left kidney. 6 mm calculus within the midportion of the left kidney. Borderline dilatation of the bilateral renal collecting systems. Normal color Doppler bilaterally. IMPRESSION: 1. Borderline dilatation of the bilateral renal collecting systems. 2. Small nonobstructive calculi within the bilateral kidneys. Assessment & Plan Assessment & Plan (1) Nephrolithiasis: Code(s): N20.0 - Calculus of kidney Category: Medical Plan In office urinalysis results reviewed with the patient today; as noted above. Recent renal imaging results reviewed with the patient today; as noted above. She currently denies any bothersome urinary issues or concerns She reports be happy with current voiding parameters. Discussed, educated, and stressed the importance of adequate hydration relation to nephrolithiasis as well as overall health and well-being. Discussed continuing to add 1 oz of lemon juice to water daily. Discussed at length potential causes of nephrolithiasis Discussed metabolic workup with 24 hour urine collection and labs Will obtain renal ultrasound in 6 months. Follow-up in 6 months with imaging to be completed prior; or sooner with any issues, concerns, and or questions. Orders: Orders AMB Urinalysis Automated Today Z13.9 - Encounter for screening, unspecified US renal BI 6 Months N20.0 - Calculus of kidney Patient Instructions: The patient had an opportunity to ask questions regarding the treatment plan. All questions were answered. Physical exam, labs, and imaging were discussed and reviewed in detail. As well as risks, benefits, and discussion of treatment choices. No major barriers to understanding were identified. The patient expressed understanding and agreement with the above treatment plan. The patient was made aware they should contact our office by phone for worsening of their current condition, the appearance of new symptoms, or with any questions or concerns. Compliance is encouraged with any medications and follow up testing that is ordered. It is a privilege to be allowed the opportunity to participate in? your urological care.? Again, if you have any questions or concerns If you have any questions or concerns please do not hesitate to contact me. The office is [phone]. This note is constructed using voice recognition software. While every effort has been made to ensure accuracy dope dry house operator errors may have been included. Yours sincerely, ISABELL Garza Coding Level of Care Code Est Pt Level 3 (05439) Diagnoses Nephrolithiasis N20.0
== END 2024-05-13 12:08 | disposition home or self-care (01) ==
LOC: HO.HUSH 11:25
PROVIDERS: PCP Internal Medicine; Visit Provider Nurse Practitioner Family
DX: Z13.9 Encounter for screening, unspecified (principal); N20.0 Calculus of kidney
CPT/HCPCS: 99213

== ENCOUNTER → 2024-05-13 11:25 | Outpatient (BNVA) | payer BC, SELFPAY | PROVIDERS: PCP Internal Medicine; Visit Provider Nurse Practitioner Family | DX: N20.0 Calculus of kidney (principal) | CPT/HCPCS: 81003 ==

== ENCOUNTER 2024-10-30 08:25 | Outpatient (REF) | payer BC, SELFPAY ==
--- NOTE | ~2024-10-30 | US_ITS ---
CLINICAL HISTORY: N20.0 - Calculus of kidney US renal with Color Doppler Comparison: US - US RENAL BI - 05/06/24 08:45 EST US/SR - US RENAL BI - 10/23/23 09:13 EDT US/IN/SR - US RENAL BI - 10/30/22 08:41 EDT US/SR - US RENAL BI - 04/25/22 08:48 EST Findings: Right kidney normal size and echotexture, 11.4 cm length. Mild pelvicaliectasis. No hydronephrosis. Nonobstructing caliceal stone midpole measuring 4 x 3 x 2 mm previously measuring 4 x 3 x 5 mm. Adjacent nonobstructing caliceal stone measuring 3 x 3 x 2 mm. Normal color flow. No renal masses. Left kidney normal size and echotexture, 12.5 cm length. No hydronephrosis or mass. Normal color flow. Nonobstructing caliceal stone upper pole measuring 5 x 5 x 5 mm previously measuring 5 x 5 x 6 mm and midpole measuring 10 x 6 x 6 mm previously measuring 6 x 7 x 4 mm. Impression: 1. Bilateral nephrolithiasis. Mild pelvicaliectasis right kidney. No hydronephrosis. This document has been electronically signed by: Severo Hurtado MD on 10/30/2024 12:50:32
--- OUTSIDE RECORDS SUMMARY | 2024-10-30 09:02 | XMS_ITS | Clinical Summary ---
Author Organization [facility] Address [address] [place] [address] Care Team Providers Care Passenger Representative Name Role Phone Steph Love MD Primary Care Provider [phone] Elizabeth Garzon MD Unavailable [phone] Allergies Active Allergy Reactions Criticality Noted Date Comments Coconut Hives Medium 02/01/2021 Coconut (Cocos Nucifera) Hives Medium 11/18/2020 Escitalopram Other (See Comments) 11/18/2020 Medications albuterol (PROVENTIL HFA; VENTOLIN HFA) 108 (90 Base) MCG/ACT inhalerIndicatio ns:Chest pressure,Environ mental allergies,Uncomp licated asthma, unspecified asthma severity, unspecified whether persistent Inhale 2 puffs 4 (four) times a day. 1 each 06/16/19 23 Active atorvastatin (LIPITOR) 10 MG tabletIndication s:Hypercholester olemia TAKE ONE TABLET BY MOUTH EVERY DAY 90 tablet 1 05/31/19 25 Active Mounjaro 7.5 MG/0.5ML pen-injectorIndi cations:Type 2 diabetes mellitus without complication, without long-term current use of insulin (HCC) INJECT 1 PEN (7.5 MG) UNDER THE SKIN ONCE WEEKLY 2 mL 3 08/07/19 25 Active sertraline (ZOLOFT) 100 MG tabletIndication s:Depression with anxiety TAKE ONE TABLET BY MOUTH EVERY DAY 90 tablet 08/28/19 25 Active montelukast (SINGULAIR) 10 MG tabletIndication s:Environmental allergies TAKE ONE TABLET BY MOUTH IN THE EVENING 30 tablet 1 10/04/19 25 Active lisinopril (PRINIVIL,ZeSTRI L) 10 MG tabletIndication s:Primary hypertension Take 2 tablets (20 mg total) by mouth daily. 180 tablet 1 10/15/19 25 Active montelukast (SINGULAIR) 10 MG tabletIndication s:Environmental allergies Take 1 tablet (10 mg total) by mouth nightly. 30 tablet 1 11/21/19 24 025 Discontinued lisinopril (PRINIVIL,ZeSTRI L) 20 MG tabletIndication s:Primary hypertension TAKE ONE TABLET BY MOUTH EVERY DAY 90 tablet 1 05/31/19 25 025 Discontinued(Re order) Active Problems Problem Noted Date Diagnosed Date [...] Encounters Date Type Department Care Team Description 10/15/2024 1:30 PM EDT Telemedicine [facility] Endocrinology [address] [phone] Ruy Larsen MD Subclinical hyperthyroidism (Primary Dx); Type 2 diabetes mellitus without complication, without long-term current use of insulin (HCC) 10/14/2024 2:00 PM EDT Office Visit [address] [place] [phone] Steph Love MD Hyperlipidemia, unspecified hyperlipidemia type (Primary Dx); Primary hypertension ; Type 2 diabetes mellitus without complication, without long-term current use of insulin (HCC); Depression with anxiety; Subclinical hyperthyroidism ; Morbid obesity (HCC) 10/14/2024 Travel 10/02/[address] [phone] Steph Love MD Environmental allergies 08/27/[address] [phone] Steph Love MD Depression with anxiety 08/05/[address] [place] [phone] Steph Love MD Type 2 diabetes mellitus without complication, without long-term current use of insulin (HCC) from Last 3 Months Immunizations Immunization Administration Dates Next Due Covid-19 MRNA Vaccine [...] = 0.6 oz pur e alcohol) rarely [facility] Utilities Answer Date Recorded In the past 12 months has [employer], gas, oil, or water [employer] threatened to shut off services in your home? No 04/15/2024 Social Connection and Isolation Panel [NHANES] A nswer Date Recorded In a typical week, how many times do you talk on the phone with family, friends, or neighbors? Three times a week 04/15/2024 Frequency of Social Gatherin gs with Friends and Family Not on file 04/15/2024 Attends Scientology Services Not on file 04/15 Active Member [...] any time in the past 12 m [facility], were you homeless or living in a longterm (including now)? No 04/15/2024 Education Answer Date Recorded What is the highest level of school you have completed or the highest degree you have received? Some college, no degree 04/15/2024 Comments No Sex and Gender Information Value Date Recorded Sex Assigned at Female 12/31/2023 3:01 PM EDT Legal Sex Female 6:45 PM EST Gender Identity Female 12/31/2023 3:01 PM EDT Sexual Orientation Heterosexual (straight) 12/30 3:01 PM EDT Last Filed Vital Signs Vital Sign Reading Time Taken Comments Blood Pressure 110/64 10/14/2024 1:55 PM EDT Pulse 95 10/14/2024 1:55 PM EDT Temperature 36.4 C (97.6 F) 10/14/2024 1:55 PM EDT Respiratory Rate 16 10/14/2024 1:55 PM EDT Oxygen Saturation 99% 10/14/2024 1:55 PM EDT Inhaled Oxygen Concentration - - Weight 101 kg (222 lb 12.8 oz) 10/14/2024 1:55 P M EDT Height 157.5 cm (5' 2.01 ) 10/14/2024 1:55 PM ED T Body Mass Index 40.74 10/14/2024 1:55 PM EDT Plan of Treatment Upcoming Encounters Date Type Department Care Team (Late st Contact Info) Description 02/13/2025 11:45 AM EST Office Visit [facility] [address] [facility] [address] [place] [phone] Steph Love MD [address] [place] [phone] Health Maintenance Due Date Last Done Comments Hepatitis C Virus Screening 1979 Foot Exam 1989 Hepatitis B Vaccines (1 of 3 - 19+ 3-dose series) 1998 Pneumococcal Vaccine: Pediat alondra (0-5 Years) and At-Risk Patients (6 to 49 Years) (1 of 2 - PCV) 1998 HPV Vaccines (1 - 3-dose SCD M series) 2006 Mammogram 05/17/2023 05/16/2021, 01/09/2020 COVID-19 Vaccine (3 - 2023-2 5 season) 2023 06/03/2020, 05/14/2020 Colonoscopy 02/07/2024 Ophthalmology Exam 03/27/2024 03/27/2023, 0 03/22/2022 (Previously Completed), 08/08/2019 Physical 04/03/2024 04/03/2022 Influenza Vaccine 10/03/2024 11/04/2019, 01/03/2019 Lipid Panel 02/01/2025 02/02/2024, 11/2023, 11/28/2022, Additional history exists Microalbumin/Creatinine Rati o Urine 04/09/2025 04/09/2024, 02/02/2024 Hemoglobin A1C 04/10/2025 10/08/2024, 02/0 07/2024, 04/09/2024, Additional history exists Pap Smear (Ages 21-65) 07/13/2025 07/13/2022 Creatinine with GFR 10/08/2025 10/08/2024, 04/09/2024, 04/09/2024, Additional history exists DTaP/Tdap/Td Vaccines (3 - T d or Tdap) 01/03/2029 01/03/2019, 12/21/2015 HIV Screening Discontinued Procedures Procedure Name Priority Date/Time Associated Diagnosis Comments HEMOGLOBIN A1C Routine 10/08/2024 9:01 AM EDT Type 2 diabetes mellitus without complication, without long-term current use of insulin (HCC) BASIC METABOLIC PANEL Routine 10/08/2024 9:01 AM EDT Type 2 diabetes mellitus without complication, without long-term current use of insulin (HCC) T4, FREE Routine 10/08/2024 9:01 AM EDT Type 2 diabetes mellitus without complication, without long-term current use of insulin (HCC) TSH, HIGHLY SENSITIVE Routine 10/08/2024 9:01 AM EDT Type 2 diabetes mellitus without complication, without long-term current use of insulin (HCC) MICROALBUMIN, CREATININE, URINE, RANDOM Routine 04/09/2024 9:06 [...] Recently Relevant to Health Maintenance Results * (ABNORMAL) TSH, HIGHLY SENSITIVE (10/08/2024 9:01 AM EDT) Pathologist [facility] TSH, Highly Sensitive 0.23(L) mIU/L [facility] Comment: Reference Range > or = 20 Years 0.40-4.50 Ranges First trimester 0.26-2.66 Second trimester 0.55-2.73 Third trimester 0.43-2.91 Blood Blood specimen / Unknown 10/08/2024 9:01 AM EDT 10/08/2024 9:01 AM EDT Narrative [facility] - 10/09/2024 9:09 AM EDT FASTING:YES FASTING: YES Steph Love MD LAB BLOOD ORDERABLES Final Result Performing Organization Address [facility]/ZIP Co de Phone Number [facility] [address] [place] [address] * T4, FREE (10/08/2024 9:01 AM EDT) Pathologist [facility] T4, Free 1.0 0.8 - 1.8 ng/dL [facility] Blood specimen / Unknown 10/08/2024 9:01 AM EDT 10/08/2024 9:01 AM EDT Narrative [facility] - 10/09/2024 9:09 AM EDT FASTING:YES FASTING: YES Steph Love MD LAB BLOOD ORDERABLES Final Result Performing Organization Address [facility]/ZIP Co de Phone Number [facility] [address] [place] [phone] * (ABNORMAL) Hemoglobin A1C (10/08/2024 9:01 AM EDT) [facility] Hemoglobin A1C 5.9(H) <5.7 % [facility] Comment: For someone without known diabetes, a [...] for diagnosis of diabetes for children. Blood specimen / Unknown 10/08/2024 9:01 AM EDT 10/08/2024 9:01 AM EDT Narrative [facility] - 10/09/2024 9:09 AM EDT FASTING:YES FASTING: YES us Steph Love MD LAB BLOOD ORDERABLES Final Result [facility] [address] [place] [phone] * (ABNORMAL) BASIC METABOLIC PANEL (10/08/2024 9:01 AM EDT) [facility] Glucose 108(H) 65 - 99 mg/dL [facility] Comment: Fasting reference interval For someone without known diabetes, a glucose value between 100 and 125 mg/dL is consistent with prediabetes and should be confirmed with a follow-up test. Blood Urea Nitrogen (BUN) 11 7 - 25 mg/dL [facility] Creatinine 0.65 0.50 - 0.99 mg/dL [facility] Creatinine w/ eGFR 111 > OR = 60 mL/min/1. 73m2 [facility] BUN/Creatinine Ratio SEE NOTE: (calc) [facility] Comment: Not Reported: BUN and Creatinine are within reference range. Sodium 137 135 - 146 mmol/L [facility] Potassium 4.3 3.5 - 5.3 mmol/L [facility] Chloride 100 98 - 110 mmol/L [facility] CO2 29 20 - 32 mmol/L [facility] Calcium 10.2 8.6 - 10.2 mg/dL [facility] Blood specimen / Unknown 10/08/2024 9:01 AM EDT 10/08/2024 9:01 AM EDT Narrative [facility] - 10/09/2024 9:09 AM EDT FASTING:YES FASTING: YES Steph Love MD LAB BLOOD ORDERABLES Final Result Performing Organization Address [facility] de Phone Number [facility] [address] [place] [address] * Microalbumin, Creatinine, Urine, Random (04/09/2024 9:06 AM EST) Creatinine, Urine, Random 189 20 - 275 mg/dL [facility] Microalbumin, Urine, Random 0.9 See Note: mg/dL [facility] Comment: Reference Range: Reference Range Not established Microalbumin/Creat inine Ratio 5 <30 mg/g creat [facility] Comment: The ADA defines abnormalities in albumin excretion as follows: Albuminuria Category Result (mg/g creatinine) Normal to Mildly increased <30 Moderately increased 30-299 Severely increased > OR = 300 The ADA recommends that at least two of three specimens collected within a 3-6 month period be abnormal before considering a patient to be within a diagnostic category. Urine Voided urine specimen / Unknown 04/09/2024 9:06 AM EST 04/09/2024 9:07 AM EST Narrative [facility] - 04/09/2024 11:34 PM EST FASTING:YES FASTING: YES Ruy Larsen MD URINE ORDERABLES Final Result Performing Organization Address [facility] de Phone Number [facility] [address] [place] [phone] * (ABNORMAL) Lipid Panel Reflex Direct LDL (02/02/2024 8:03 AM EST) Cholesterol, Total 172 <200 mg/dL [facility] Cholesterol, HDL 51 > OR = 50 mg/dL [facility] Triglycerides 209(H) <150 mg/dL [facility] Comment: If a non-fasting specimen was collected, consider repeat triglyceride testing on a fasting specimen if clinically indicated. Parth et al. J. of Clin. Lipidol. 2015;9:129-169. LDL Cholesterol 91 mg/dL (calc) [facility] Comment: Reference range: <100 Desirable range <100 mg/dL for primary prevention; <70 mg/dL for patients with CHD or diabetic patients with > or = 2 CHD risk factors. LDL-C is now calculated using the Dmitry-Kaye calculation, which is a validated novel method providing better accuracy than the Friedewald equation in the estimation of LDL-C. Dmitry SS et al. ROSS. 2013;310(19): 3094-2959 (http://education.[place]ecash/faq/UUR318) Cholesterol/HDL Ratio 3.4 <5.0 (calc) [facility] Non HDL Chol. (LDL+VLDL) 121 <130 mg/dL (calc) [facility] Comment: For patients with diabetes plus 1 major ASCVD risk factor, treating to a non-HDL-C goal of <100 mg/dL (LDL-C of <70 mg/dL) is considered a therapeutic option. Blood Blood specimen / Unknown 02/02/2024 8:03 AM EST 02/02/2024 8:03 AM EST Narrative [facility] - 02/04/2024 3:49 PM EST FASTING:YES FASTING: YES us Steph Love MD LAB BLOOD ORDERABLES Final Result Performing Organization Address City/State/[place] Co de Phone Number [facility] [address] [place] [phone] * OPHTHALMOLOGY TESTING PROCEDURES (03/27/2023) us Scan Ophthalmology HX AMB PROCEDURES Edited Resu lt - Final * PATHOLOGY GYNECOLOGY (07/13/2022) us External Provider [facility] HX PATH PROCEDURES Nargis l Result * IMAGING BREAST/BX/MAMMO (05/16/2021) Anatomical Region Laterality Modality Other 05/16/2021 Narrative 05/16/2021 Ordered by an unspecified provider. us Generic Provider IMG LEGACY PROCEDURES Edited Re sult - Final from Last 3 Months or Most Recently Relevant to Health Maintenance Insurance [facility] PPO Care Teams Passenger Representative Relationship Specialty Start Date End Date Steph Love MD [address] [place] [address] PCP - General Internal Medicine 02/01/21 Elizabeth Garzon MD [address] [place] [address] [place] [address] OBGYN Obstetrics and Gynecology 02/01/21
--- OUTSIDE RECORDS SUMMARY | 2024-10-30 09:02 | XMS_ITS | Encounter Summary ---
Author Organization [facility] Address [address] [place] [address] Care Team Providers Care Machine Compositor Name Role Phone Steph Love MD Primary Care Provider [phone] Elizabeth Garzon MD Unavailable [phone] Encounter Details Date Type Department Care Team (Late st Contact Info) Description 03/26/2021 Scanned Document [address] [phone] Urgent Care, Scan Social History Tobacco Use Types Packs/Day Years Used Date Smoking Tobacco: Never Smokeless Tobacco: Never Alcohol Use Standard Drinks/Week Comments Yes 0 (1 standard drink = 0.6 oz pur e alcohol) rarely PHQ-2 Answer Date Recorded PHQ-2 Total Score 4 02/01/2021 Comments No Sex and Gender Information Value [...] Description 02/13/2025 11:45 AM EST Office Visit [address] [phone] Steph Love MD [address] [place] [phone] documented as of this encounter Visit Diagnoses Not on filedocumented in this encounter Care Teams Machine Compositor Relationship Specialty Start Date End Date Steph Love MD [address] [place] [address] PCP - General Internal Medicine 02/01/21 Elizabeth Garzon MD [address] [place] [address] [place] [address] OBGYN Obstetrics and Gynecology 02/01/21 documented as of this encounter
--- OUTSIDE RECORDS SUMMARY | 2024-10-30 09:02 | XMS_ITS ---
[facility] Name [facility] Results Test Name/Text Value Interpretation Date Range Source HbA1c MFr Bld 5.9 % Above high normal 10/09/2024 - 5.7 [facility] TSH SerPl-aCnc 0.23 mIU/L Below low normal 10/09/2024 [facility] T4 Free SerPl-mCnc 1.0 ng/dL Normal 10/09/2024 0.8 - 1.8 [facility] Calcium SerPl-mCnc 10.2 mg/dL Normal 10/09/2024 8.6 - 10. 2 [facility] Sodium SerPl-sCnc 137.0 mmol/L Normal 10/09/2024 135 - 14 6 [facility] BUN/Creat SerPl SEE NOTE: 10/09/2024 6 - [address] Glucose SerPl-mCnc 108.0 mg/dL Above high normal 10/09/2024 65 - 99 [facility] CO2 SerPl-sCnc 29.0 mmol/L Normal 10/09/2024 20 - 32 QU EST Chloride SerPl-sCnc 100.0 mmol/L Normal 10/09/2024 98 - 1 10 [facility] eGFRcr SerPlBld CKD-EPI 2020 111.0 mL/min/1.73m2 Normal 10/09/2024 - [facility] BUN SerPl-mCnc 11.0 mg/dL Normal 10/09/2024 7 - [address] Potassium SerPl-sCnc 4.3 mmol/L Normal 10/09/2024 3.5 - 5 .3 [facility] Creat SerPl-mCnc 0.65 mg/dL Normal 10/09/2024 0.5 - 0.99 [facility] T3 SerPl-mCnc 115.0 ng/dL Normal 04/10/2024 76 - [address] Thyroglob Ab SerPl-aCnc <1 Normal 04/10/2024 - [facility] Thyroperoxidase Ab SerPl-aCnc <1 Normal 04/10/2024 - 9 [facility] TSH SerPl-aCnc 0.08 mIU/L Below low normal 04/10/2024 [facility] HbA1c MFr Bld 5.9 % of total Hgb Above high normal 04/10/2024 - 5.7 [facility] BUN SerPl-mCnc 10.0 mg/dL Normal 04/10/2024 7 - [address] Glucose SerPl-mCnc 120.0 mg/dL Above high normal 04/10/2024 65 - 99 [facility] Sodium SerPl-sCnc 139.0 mmol/L Normal 04/10/2024 135 - 14 6 [facility] eGFRcr SerPlBld CKD-EPI 2020 112.0 mL/min/1.73m2 Normal 04/10/2024 - [facility] Albumin/Glob SerPl 1.7 (calc) Normal 04/10/2024 1 - 2.5 [facility] Calcium SerPl-mCnc 9.0 mg/dL Normal 04/10/2024 8.6 - 10.2 [facility] Bilirub SerPl-mCnc 0.6 mg/dL Normal 04/10/2024 0.2 - 1.2 [facility] Creat SerPl-mCnc 0.61 mg/dL Normal 04/10/2024 0.5 - 0.99 [facility] Albumin SerPl-mCnc 4.1 g/dL Normal 04/10/2024 3.6 - 5.1 [facility] Potassium SerPl-sCnc 4.1 mmol/L Normal 04/10/2024 3.5 - 5 .3 [facility] Globulin Ser Calc-mCnc 2.4 g/dL (calc) Normal 04/10/2024 1.9 - 3.7 [facility] AST SerPl-cCnc 13.0 U/L Normal 04/10/2024 10 - 35 [facility] T CO2 SerPl-sCnc 30.0 mmol/L Normal 04/10/2024 20 - 32 QU EST ALP SerPl-cCnc 70.0 U/L Normal 04/10/2024 31 - 125 [facility] T Chloride SerPl-sCnc 103.0 mmol/L Normal 04/10/2024 98 - 1 10 [facility] ALT SerPl-cCnc 15.0 U/L Normal 04/10/2024 6 - 29 [facility] T BUN/Creat SerPl SEE NOTE: Normal 04/10/2024 6 - [address] Prot SerPl-mCnc 6.5 g/dL Normal 04/10/2024 6.1 - 8.[address] T4 Free SerPl-mCnc 1.1 ng/dL Normal 04/10/2024 0.8 - 1.8 [facility] History of Medication Use Medication Directions Dispensed Refills Start Date End Date Stat us sertraline (ZOLOFT) 100 MG tablet TAKE 1 TABLET BY MOUTH EVERY DAY 03/20/2023 active lisinopril (PRINIVIL,ZeSTRIL) 20 MG tablet Take 1 tablet (20 mg total) by mouth daily. 02/08/2023 active atorvastatin (LIPITOR) 10 MG tablet TAKE 1 TABLET BY MOUTH EVERY DAY 08/09/2022 active albuterol (PROVENTIL HFA; VENTOLIN HFA) 108 (90 Base) MCG/ACT inhaler Inhale 2 puffs 4 (four) times a day. 06/15/2022 active metFORMIN (GLUCOPHAGE) 500 MG tablet Take 1 tablet (500 mg total) by mouth 2 (two) times a day. 12/28/2020 03/03/2022 active Vitamin D3 (CHOLECALCIFEROL) 50 MCG (2000 UT) tablet Take 1 tablet (2,000 Units total) by mouth daily. active Allergies Allergen Reaction Severity Comment Documented Date Source Statu s COCONUT HIVES 02/01/2021 [facility] active ESCITALOPRAM OTHER (SEE COMMENTS) 11/18/2020 [facility] active COCONUT (COCOS NUCIFERA) HIVES [facility] COCONUT OIL HIVES [facility] Problems Problem Status Onset Date Problem Type Date of Resoluti on Source Intramural leiomyoma of uterus active 2021-02-01 ProblemAct [facility] Diaphragmatic hernia active 2021-02-01 ProblemAct [facility] Obesity active 2021-02-01 ProblemAct [facility] Cervical spondylosis without myelopathy active 2021-02-01 ProblemAct [facility] Impaired fasting glucose active 2021-02-01 ProblemAct [facility] Vitamin D deficiency active 2021-02-01 ProblemAct [facility] Displacement of cervical intervertebral disc without myelopathy active 2021-02-01 ProblemAct [facility] Polycystic ovaries active 2021-02-01 ProblemAct [facility] Type 2 diabetes mellitus without complication, without long-term current use of insulin active 2022-08-01 ProblemAct [facility] Obstructive sleep apnea syndrome active 2021-02-01 ProblemAct [facility] Severe recurrent major depression without psychotic features active 2021-02-01 ProblemAct [facility] Gastro-esophageal reflux disease without esophagitis active 2021-02-01 ProblemAct [facility] Ureteric stone active 2021-02-[address] Nonalcoholic steatohepatitis (ENRIQUEZ) active 2021-02-01 ProblemAct [facility] Non-toxic goiter active 2021-02-01 ProblemAct [facility] Iron deficiency anemia active 2021-02-01 ProblemAct [facility] History of gestational diabetes mellitus active 2021-02-01 ProblemAct [facility] Immunizations Vaccine Date Source Lot Number Status Covid-19 MRNA Vaccine - Pfiz er 12+ (Purple Cap) 06/03/2020 [facility] completed Covid-19 MRNA Vaccine - Pfiz er 12+ (Purple Cap) 06/03/2020 [facility] completed Covid-19 MRNA Vaccine - Pfiz er 12+ (Purple Cap) 05/14/2020 [facility] completed Covid-19 MRNA Vaccine - Pfiz er 12+ (Purple Cap) 05/14/2020 [facility] completed Influenza, Quadrivalent (FLU AD) Adjuvanted Preservative Free IM 65 years and older 11/04/2019 [facility] completed Influenza, Quadrivalent (FLU AD) Adjuvanted Preservative Free IM 65 years and older 11/04/2019 [facility] completed Influenza Whole 01/03/2019 [facility] UNK completed Influenza Whole 01/03/2019 [facility] UNK completed Tdap 01/03/2019 [facility] UNK completed Tdap 01/03/2019 [facility] UNK completed Tdap 12/21/2015 [facility] En[facility]ters Encounter Type Encounter Reason Primary Diagnosis Location Date Ambulatory Thyrotoxicosis, 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 crisis or storm Thyrotoxicosis, 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 crisis or storm [facility] 10/15/2024 Ambulatory Follow-up Follow-up [facility] 10/14/2024 Ambulatory Follow-up Follow-up [facility] 07/14/2024 Ambulatory Type 2 diabetes mellitus without complications Type 2 diabetes mellitus without complications [facility] 04/16/2024 Ambulatory Diabetes Diabetes [facility] 04/15/2024 Ambulatory Other hypertrophic disorders of the skin Other hypertrophic disorders of the skin [email or web address] 04/03/2024 Ambulatory Diabetes Diabetes [email or web address] 02/05/2024 Ambulatory Follow-up Follow-up [email or web address] 12/31/2023 Ambulatory Type 2 diabetes mellitus without complications Type 2 diabetes mellitus without complications [email or web address] 12/12/2023 Ambulatory Type 2 diabetes mellitus without complications Type 2 diabetes mellitus without complications [email or web address] 10/15/2023 Ambulatory Essential (primary) hypertension Essential (primary) hypertension [email or web address] 06/15/2023 Ambulatory Type 2 diabetes mellitus without complications Type 2 diabetes mellitus without complications [email or web address] 05/09/2023 Ambulatory Other allergy status , other than to drugs and biological substances Other allergy status, other than to drugs and biological substances [email or web address] 02/08/2023 Ambulatory Essential (primary) hypertension Essential (primary) hypertension [email or web address] 12/28/2022 Ambulatory Essential (primary) hypertension Essential (primary) hypertension [email or web address] 12/04/2022 Ambulatory Depression, unspecified [email or web address] 08/01/2022 Ambulatory Other chest pain [email or web address] 06/15/2022 Ambulatory Encounter for general adult medical examination without abnormal findings [facility] 04/03/2022 Ambulatory Type 2 diabetes mellitus without complications [facility] 01/24/2022 Ambulatory Depression, unspecified [email or web address] 09/22/2021 Ambulatory Other specified anxiety disorders [email or web address] 05/30/2021 Ambulatory Type 2 diabetes mellitus without complications [email or web address] 02/01/2021 Care Team Organization Name Specialty Phone Email Start Date End Da te [email or web address] Steph Love Primary Care 07/14/2024 [facility] Primary Care 04/22/2023 10/12/2024 [facility] Steph Love [facility] Primary Care 04/22/2023 [email or web address] Steph Love Primary Care 01/24/2022 [email or web address] NO PCP Primary Care 02/01/2021 04/03/2022 [email or web address] Steph Love Primary Care 02/01/202101/24
--- OUTSIDE RECORDS SUMMARY | 2024-10-30 09:02 | XMS_ITS | Encounter Summary ---
Author Organization [facility] Address [address] [place], [place] [id number] Care Team Providers Care Fax Machine Repairer Name Role Phone Steph Love MD Primary Care Provider [phone] Elizabeth Garzon MD Unavailable [phone] Encounter Details Date Type Department Care Team (Late st Contact Info) Description 02/16/2023 Scanned Document [facility] PRIMARY CARE SCAN Primary Care, Scan Social History Tobacco Use Types Packs/Day Years Used Date Smoking Tobacco: Never Smokeless Tobacco: Never Alcohol Use Standard Drinks/Week Comments Yes 0 (1 standard drink = 0.6 oz pur e alcohol) rarely PHQ-2 Answer Date Recorded PHQ-2 Total Score 2 12/04/2022 Comments No Sex and Gender Information Value [...] Description 02/13/2025 11:45 AM EST Office Visit [address] [place] [phone] Steph Love MD [address] [place] [address] [place] [phone] documented as of this encounter Visit Diagnoses Not on filedocumented in this encounter Care Teams Fax Machine Repairer Relationship Specialty Start Date End Date Steph Love MD [address] [place] [address] PCP - General Internal Medicine 02/01/21 Elizabeth Garzon MD [address] [place] [address] [place] [address] OBGYN Obstetrics and Gynecology 02/01/21 documented as of this encounter
--- OUTSIDE RECORDS SUMMARY | 2024-10-30 09:03 | XMS_ITS | Encounter Summary ---
Author Organization [facility] Address [address] [place], [place] [id number] Care Team Providers Care Wire Web Worker Name Role Phone Pcp, No Primary Care Provider UnavailSteph Membreno MD Primary Care Provider +1- [phone] Elizabeth Garzon MD Unavailable [phone] Encounter Details Date Type Department Care Team (Late st Contact Info) Description 11/11/2019 Scanned Document [address] [phone] Provider, Generic Social History Tobacco Use Types Packs/Day Years Used Date Smoking Tobacco: Never Assessed Comments Unknown Sex and Gender Information Value Date Recorded Sex Assigned at Female 12/31/2023 3:01 PM EDT Legal Sex Female 6:45 PM EST Gender Identity Female 12/31/2023 3:01 PM EDT Sexual Orientation Heterosexual (straight) 12/30 3:01 PM EDT documented as of this encounter Plan of Treatment Upcoming Encounters Date Type Department Care Team (Late st Contact Info) Description 02/13/2025 11:45 AM EST Office Visit [address] [place] [phone] Steph Love MD [address] [place] [address] [place] [address] documented as of this encounter Procedures Procedure Name Priority Date/Time Associated Diagnosis Comments MRI EXTERNAL RESULT 11/11/2019 documented in this encounter Results * MRI EXTERNAL RESULT (11/11/2019) Anatomical Region Laterality Modality Magnetic Resonan ce Narrative 11/11/2019 Ordered by an unspecified provider. us Generic Provider IMG MRI ORDERABLES Edited Resul t - Final documented in this encounter Visit Diagnoses Not on filedocumented in this encounter Care Teams Wire Web Worker Relationship Specialty Start Date End Date Pcp, No PCP - General General Medicine 12/29/20 01/31/21 Steph Love MD [address] [place] [address] PCP - General Internal Medicine 02/01/21 Elizabeth Garzon MD [address] [place] [address] [place] [address] OBGYN Obstetrics and Gynecology 02/01/21 documented as of this encounter
--- OUTSIDE RECORDS SUMMARY | 2024-10-30 09:03 | XMS_ITS | Encounter Summary ---
Author Organization [facility] Address [address] [place] [address] Care Team Providers Care Incident Coordinator Name Role Phone Pcp, No Primary Care Provider Unavailanalisa e Steph Love MD Primary Care Provider +- [phone] Elizabeth Garzon MD Unavailable [phone] Encounter Details Date Type Department Care Team (Late st Contact Info) Description 02/18/2020 Scanned Document [address] [phone] Provider, Generic Social History Tobacco Use Types [...] Description 02/13/2025 11:45 AM EST Office Visit [address] [phone] Steph Love MD [address] [place] [address] documented as of this encounter Visit Diagnoses Not on filedocumented in this encounter Care Teams Incident Coordinator Relationship Specialty Start Date End Date Pcp, No PCP - General General Medicine 12/29/20 01/31/21 Steph Love MD [address] [place] [address] PCP - General Internal Medicine 02/01/21 Elizabeth Garzon MD [address] [place] [address] [place] [address] OBGYN Obstetrics and Gynecology 02/01/21 documented as of this encounter
--- OUTSIDE RECORDS SUMMARY | 2024-10-30 09:03 | XMS_ITS | Encounter Summary ---
Author Organization [facility] Address [address] [place] [address] Care Team Providers Care Seo Executive Name Role Phone Pcp, No Primary Care Provider Unavailanalisa e Steph Love MD Primary Care Provider +- [phone] Elizabeth Garzon MD Unavailable [phone] Encounter Details Date Type Department Care Team (Late st Contact Info) Description 08/08/2019 Scanned Document [address] [phone] Provider, Generic Social History Tobacco Use Types [...] Description 02/13/2025 11:45 AM EST Office Visit [address] [phone] Steph Love MD [address] [place] [address] documented as of this encounter Procedures Procedure Name Priority Date/Time Associated Diagnosis Comments HX OPHTHALMOLOGY TESTING PROCEDURES 08/08/2019 documented in this encounter Results * HX OPHTHALMOLOGY TESTING PROCEDURES (08/08/2019) Narrative 08/08/2019 Ordered by an unspecified provider. us Generic Provider HX AMB PROCEDURES Final Result documented in this encounter Visit Diagnoses Not on filedocumented in this encounter Care Teams Seo Executive Relationship Specialty Start Date End Date Pcp, No PCP - General General Medicine 12/29/20 01/31/21 Steph Lvoe MD [address] [place] [address] PCP - General Internal Medicine 02/01/21 Elizabeth Garzon MD [address] [place] [address] [place] [address] OBGYN Obstetrics and Gynecology 02/01/21 documented as of this encounter
--- OUTSIDE RECORDS SUMMARY | 2024-10-30 09:03 | XMS_ITS | Encounter Summary ---
Author Organization [facility] Address [address] [place] [address] Care Team Providers Care Nail Galvanizer Name Role Phone Steph Love MD Primary Care Provider +1- [phone] Elizabeth Garzon MD Unavailable [phone] Encounter Details Date Type Department Care Team (Late Contact Info) Description 04/03/2024 Scanned Document [facility] PRIMARY CARE SCAN Veronica Rose MD [address] [facility] [place] [address] Social History Tobacco Use Types Packs/Day Years [...] Department Care Team (Late Contact Info) Description 02/13/2025 11:45 AM EST Office Visit [address] [place] [phone] Steph Love MD 100 [facility] [address] [place] [address] documented as of this encounter Visit Diagnoses Not on filedocumented in this encounter Care Teams Nail Galvanizer Relationship Specialty Start Date End Date Steph Love MD [address] [place] [address] PCP - General Internal Medicine 02/01/21 Elizabeth Garzon MD [address] [place] [address] [place] [address] OBGYN Obstetrics and Gynecology 02/01/21 documented as of this encounter
--- OUTSIDE RECORDS SUMMARY | 2024-10-30 09:03 | XMS_ITS | Encounter Summary ---
Author Organization [facility] Address [address] [place] [address] Care Team Providers Care Night Auditor Name Role Phone Pcp, No Primary Care Provider Unavailanalisa e Steph Love MD Primary Care Provider +- [phone] Elizabeth Garzon MD Unavailable [phone] Encounter Details Date Type Department Care Team (Late st Contact Info) Description 02/13/2020 Scanned Document [address] [phone] Provider, Generic Social History Tobacco Use Types [...] Description 02/13/2025 11:45 AM EST Office Visit [address] [phone] Steph Love MD [address] [place] [address] documented as of this encounter Procedures Procedure Name Priority Date/Time Associated Diagnosis Comments EMG 02/13/2020 documented in this encounter Results * EMG (02/13/2020) Narrative 02/13/2020 Ordered by an unspecified provider. us Generic Provider NEUROLOGY ORDERABLES Final Resu lt documented in this encounter Visit Diagnoses Not on filedocumented in this encounter Care Teams Night Auditor Relationship Specialty Start Date End Date Pcp, No PCP - General General Medicine 12/29/20 01/31/21 Steph Love MD [address] [place] [address] PCP - General Internal Medicine 02/01/21 Elizabeth Garzon MD [address] [place] [address] [place] [address] OBGYN Obstetrics and Gynecology 02/01/21 documented as of this encounter
--- OUTSIDE RECORDS SUMMARY | 2024-10-30 09:03 | XMS_ITS | Encounter Summary ---
Author Organization [facility] Address [address] [place] [address] Care Team Providers Care Critical Power Technician Name Role Phone Steph Love MD Primary Care Provider [phone]- [phone] Elizabeth Garzon MD Unavailable [phone] Encounter Details Date Type Department Care Team (Late Contact Info) Description 08/07/2022 Scanned Document [facility] CARDIOLOGY SCAN Cardiology, Scan Social History [...] Description 02/13/2025 11:45 AM EST Office Visit [address] [place] [phone] Steph Love MD [address] [place] [address] documented as of this encounter Visit Diagnoses Not on filedocumented in this encounter Care Teams Critical Power Technician Relationship Specialty Start Date End Date Steph Love MD [address] [place] [address] PCP - General Internal Medicine 02/01/21 Elizabeth Garzon MD [address] [place] [address] [place] [address] OBGYN Obstetrics and Gynecology 02/01/21 documented as of this encounter
--- OUTSIDE RECORDS SUMMARY | 2024-10-30 09:03 | XMS_ITS | Encounter Summary ---
Author Organization [facility] Address [address] [place], [place] [id number] Care Team Providers Care Planning Management It Specialist Name Role Phone Pcp, No Primary Care Provider Unavailanalisa e Steph Love MD Primary Care Provider +- [phone] Elizabeth Garzon MD Unavailable [phone] Encounter Details Date Type Department Care Team (Late st Contact Info) Description 08/09/2020 Scanned Document [address] [phone] Provider, Generic Social History Tobacco Use Types [...] Description 02/13/2025 11:45 AM EST Office Visit [address] [phone] Steph Love MD [address] [place] [address] documented as of this encounter Visit Diagnoses Not on filedocumented in this encounter Care Teams Planning Management It Specialist Relationship Specialty Start Date End Date Pcp, No PCP - General General Medicine 12/29/20 01/31/21 Steph Love MD [address] [place] [address] PCP - General Internal Medicine 02/01/21 Elizabeth Garzon MD [address] [place] [address] [place] [address] OBGYN Obstetrics and Gynecology 02/01/21 documented as of this encounter
--- OUTSIDE RECORDS SUMMARY | 2024-10-30 09:03 | XMS_ITS | Encounter Summary ---
Author Organization [facility] Address [address] [place], [place] [id number] Care Team Providers Care Wire Weaver Name Role Phone Pcp, No Primary Care Provider Unavailanalisa e Steph Love MD Primary Care Provider +- [phone] Elizabeth Garzon MD Unavailable [phone] Encounter Details Date Type Department Care Team (Late st Contact Info) Description 03/23/2020 Scanned Document [address] [phone] Provider, Generic Social History Tobacco Use Types [...] Description 02/13/2025 11:45 AM EST Office Visit [address] [phone] Steph Love MD [address] [place] [address] documented as of this encounter Visit Diagnoses Not on filedocumented in this encounter Care Teams Wire Weaver Relationship Specialty Start Date End Date Pcp, No PCP - General General Medicine 12/29/20 01/31/21 Steph Love MD [address] [place] [address] PCP - General Internal Medicine 02/01/21 Elizabeth Garzon MD [address] [place] [address] [place] [address] OBGYN Obstetrics and Gynecology 02/01/21 documented as of this encounter
--- OUTSIDE RECORDS SUMMARY | 2024-10-30 09:03 | XMS_ITS | Encounter Summary ---
Author Organization [facility] Address [address] [place], [place] [id number] Care Team Providers Care Paperboard Boxes Estimator Name Role Phone Steph Love MD Primary Care Provider +1- [phone] Elizabeth Garzon MD Unavailable [phone] Encounter Details Date Type Department Care Team (Late Contact Info) Description 04/01/2021 Scanned Document [address] [phone] Steph Love MD [address] [place] [address] Social History Tobacco Use Types Packs/Day Years [...] Description 02/13/2025 11:45 AM EST Office Visit [address] [phone] Steph Love MD [address] [place] [address] documented as of this encounter Visit Diagnoses Not on filedocumented in this encounter Care Teams Paperboard Boxes Estimator Relationship Specialty Start Date End Date Steph Love MD [address] [place] [address] PCP - General Internal Medicine 02/01/21 Elizabeth Garzon MD [address] [place] [address] [place] [address] OBGYN Obstetrics and Gynecology 02/01/21 documented as of this encounter
--- OUTSIDE RECORDS SUMMARY | 2024-10-30 09:03 | XMS_ITS | Encounter Summary ---
Author Organization [facility] Address [address] [place] [address] Care Team Providers Care Kettle Cook Name Role Phone Steph Love MD Primary Care Provider +1- [phone] Elizabeth Garzon MD Unavailable [phone] Reason for Visit * Reason Comments Referral Appointment Encounter Details Date Type Department Care Team (Late Contact Info) Description 03/18/[address] [phone] Steph Love MD [address] [place] [address] Referral; Appointment Social History Tobacco Use Types [...] Description 02/13/2025 11:45 AM EST Office Visit [address] [place] [address] Steph Love MD [address] [place] [address] documented as of this encounter Visit Diagnoses Not on filedocumented in this encounter Care Teams Kettle Cook Relationship Specialty Start Date End Date Steph Love MD [address] [place] [address] PCP - General Internal Medicine 02/01/21 Elizabeth Garzon MD [address] [place] [address] [place] [address] OBGYN Obstetrics and Gynecology 02/01/21 documented as of this encounter
--- OUTSIDE RECORDS SUMMARY | 2024-10-30 09:03 | XMS_ITS | Encounter Summary ---
Author Organization [facility] Address [address] [place], [place] [id number] Care Team Providers Care Window Dresser Name Role Phone Pcp, No Primary Care Provider Unavailanalisa e Steph Love MD Primary Care Provider +- [phone] Elizabeth Garzon MD Unavailable [phone] Encounter Details Date Type Department Care Team (Late st Contact Info) Description 11/18/2020 Scanned Document [address] [phone] Provider, Generic Social History Tobacco Use Types [...] Description 02/13/2025 11:45 AM EST Office Visit [address] [phone] Steph Love MD [address] [place] [address] documented as of this encounter Visit Diagnoses Not on filedocumented in this encounter Care Teams Window Dresser Relationship Specialty Start Date End Date Pcp, No PCP - General General Medicine 12/29/20 01/31/21 Steph Love MD [address] [place] [address] PCP - General Internal Medicine 02/01/21 Elizabeth Garzon MD [address] [place] [address] [place] [address] OBGYN Obstetrics and Gynecology 02/01/21 documented as of this encounter
--- OUTSIDE RECORDS SUMMARY | 2024-10-30 09:03 | XMS_ITS | Encounter Summary ---
Author Organization [facility] Address [address] [place], [place] [phone] Care Team Providers Care Livestock Yard Supervisor Name Role Phone Pcp, No Primary Care Provider UnavailSteph Membreno MD Primary Care Provider +- [phone] Elizabeth Garzon MD Unavailable [phone] Encounter Details Date Type Department Care Team (Late st Contact Info) Description 10/05/2020 Scanned Document [address] [phone] Provider, Generic Social History Tobacco Use Types [...] Description 02/13/2025 11:45 AM EST Office Visit [address] [phone] Steph Love MD [address] [place] [address] documented as of this encounter Procedures Procedure Name Priority Date/Time Associated Diagnosis Comments LAB RESULT 10/05/2020 LAB RESULT 10/05/2020 LAB RESULT 10/05/2020 documented in this encounter Results * LAB RESULT (10/05/2020) Narrative 10/05/2020 Ordered by an unspecified provider. us Generic Provider HX AMB PROCEDURES Final Result * LAB RESULT (10/05/2020) Narrative 10/05/2020 Ordered by an unspecified provider. us Generic Provider HX AMB PROCEDURES Final Result * LAB RESULT (10/05/2020) Narrative 10/05/2020 Ordered by an unspecified provider. us Generic Provider HX AMB PROCEDURES Final Result documented in this encounter Visit Diagnoses Not on filedocumented in this encounter Care Teams Livestock Yard Supervisor Relationship Specialty Start Date End Date Pcp, No PCP - General General Medicine 12/29/20 01/31/21 Steph Love MD [address] [place] [address] PCP - General Internal Medicine 02/01/21 Elizabeth Garzon MD [address] [place] [address] [place] [address] OBGYN Obstetrics and Gynecology 02/01/21 documented as of this encounter
--- OUTSIDE RECORDS SUMMARY | 2024-10-30 09:03 | XMS_ITS | Encounter Summary ---
Author Organization [facility] Address [address] [place] [address] Care Team Providers Care Cleaner Greaser Name Role Phone Pcp, No Primary Care Provider Unavailanalisa e Steph Love MD Primary Care Provider +- [phone] Elizabeth Garzon MD Unavailable [phone] Encounter Details Date Type Department Care Team (Late st Contact Info) Description 01/16/2020 Scanned Document [address] [phone] Pain Management, Scan Social History Tobacco Use [...] 02/13/2025 11:45 AM EST Office Visit [address] [phone] Steph Love MD [address] [address] documented as of this encounter Visit Diagnoses Not on filedocumented in this encounter Care Teams Cleaner Greaser Relationship Specialty Start Date End Date Pcp, No PCP - General General Medicine 12/29/20 01/31/21 Steph Love MD [address] [place] [address] PCP - General Internal Medicine 02/01/21 Elizabeth Garzon MD [address] [place] [address] [place] [address] OBGYN Obstetrics and Gynecology 02/01/21 documented as of this encounter
--- OUTSIDE RECORDS SUMMARY | 2024-10-30 09:03 | XMS_ITS | Encounter Summary ---
Author Organization [facility] Address [address] [place], [place] [id number] Care Team Providers Care Singeing Torch Operator Name Role Phone Pcp, No Primary Care Provider UnavailSteph Membreno MD Primary Care Provider +1- [phone] Elizabeth Garzon MD Unavailable [phone] Encounter Details Date Type Department Care Team (Late st Contact Info) Description 03/15/2020 Scanned Document [address] [phone] Pain Management, Scan Social History Tobacco Use [...] 02/13/2025 11:45 AM EST Office Visit [address] [phone] Steph Love MD [address] [address] documented as of this encounter Visit Diagnoses Not on filedocumented in this encounter Care Teams Singeing Torch Operator Relationship Specialty Start Date End Date Pcp, No PCP - General General Medicine 12/29/20 01/31/21 Steph Love MD [address] [place] [address] PCP - General Internal Medicine 02/01/21 Elizabeth Garzon MD [address] [place] [address] [place] [address] OBGYN Obstetrics and Gynecology 02/01/21 documented as of this encounter
--- OUTSIDE RECORDS SUMMARY | 2024-10-30 09:03 | XMS_ITS | Encounter Summary ---
Author Organization [facility] Address [address] [place] [address] Care Team Providers Care Hall Monitor Name Role Phone Steph Love MD Primary Care Provider [phone]- [phone] Elizabeth Garzon MD Unavailable [phone] Reason for Visit * Reason Comments Medication Refill Encounter Details Date Type Department Care Team (Late Contact Info) Description 10/11/[address] [phone] Cheyenne Aguilera, IRENE [address] [address] Environmental allergies Social History Tobacco Use Types [...] Description 02/13/2025 11:45 AM EST Office Visit [address] [phone] Steph Love MD [address] [place] [address] documented as of this encounter Visit Diagnoses Diagnosis Environmental allergies Other allergy, other than to medicinal agents documented in this encounter Care Teams Hall Monitor Relationship Specialty Start Date End Date Steph Love MD [address] [place] [address] PCP - General Internal Medicine 02/01/21 Elizabeth Garzon MD [address] [place] [address] [place] [address] OBGYN Obstetrics and Gynecology 02/01/21 documented as of this encounter
--- OUTSIDE RECORDS SUMMARY | 2024-10-30 09:03 | XMS_ITS | Encounter Summary ---
Author Organization [facility] Address [address] [place], [place] [address] Care Team Providers Care Advisory Internship Name Role Phone Pcp, No Primary Care Provider UnavailSteph Membreno MD Primary Care Provider +- [phone] Elizabeth Garzon MD Unavailable [phone] Encounter Details Date Type Department Care Team (Late st Contact Info) Description 11/16/2020 Scanned Document [address] [phone] Provider, Generic Social History Tobacco Use Types [...] 02/13/2025 11:45 AM EST Office Visit [address] [phone] Steph Love MD [address] [place] [address] documented as of this encounter Procedures Procedure Name Priority Date/Time Associated Diagnosis Comments LAB RESULT 11/17/2020 LAB RESULT 11/17/2020 LAB RESULT 11/16/2020 LAB RESULT 11/16/2020 documented in this encounter Results * LAB RESULT (11/17/2020) Narrative 11/17/2020 Ordered by an unspecified provider. us Generic Provider HX AMB PROCEDURES Final Result * LAB RESULT (11/17/2020) 11/17/2020 Maite Read - 11/17/2020 Ordered by an unspecified provider. us Generic Provider HX AMB PROCEDURES Edited Result - Final * LAB RESULT (11/16/2020) 11/16/2020 Maite Read - 11/16/2020 Ordered by an unspecified provider. us Generic Provider HX AMB PROCEDURES Edited Result - Final * LAB RESULT (11/16/2020) 11/16/2020 Maite Read - 11/16/2020 Ordered by an unspecified provider. us Generic Provider HX AMB PROCEDURES Edited Result - Final documented in this encounter Visit Diagnoses Not on filedocumented in this encounter Care Teams Advisory Internship Relationship Specialty Start Date End Date Pcp, No PCP - General General Medicine 12/29/20 01/31/21 Steph Love MD [address] [place] [address] PCP - General Internal Medicine 02/01/21 Elizabeth Garzon MD [address] [place] [address] [place] [address] OBGYN Obstetrics and Gynecology 02/01/21 documented as of this encounter
--- OUTSIDE RECORDS SUMMARY | 2024-10-30 09:03 | XMS_ITS | Encounter Summary ---
Author Organization [facility] Address [address] [place], [place] [phone] Care Team Providers Care Supervisor Slate Splitting Name Role Phone Steph Love MD Primary Care Provider +1- [phone] Elizabeth Garzon MD Unavailable [phone] Encounter Details Date Type Department Care Team (Late Contact Info) Description 07/15/2021 Scanned Document [facility] PRIMARY CARE SCAN Steph Love MD [address] [place], [place] [phone] Social History Tobacco Use Types Packs/Day Years [...] Description 02/13/2025 11:45 AM EST Office Visit [address] [place] [phone] Steph Love MD [address] [place] [address] [place] [address] documented as of this encounter Visit Diagnoses Not on filedocumented in this encounter Care Teams Supervisor Slate Splitting Relationship Specialty Start Date End Date Steph Love MD [address] [place] [address] PCP - General Internal Medicine 02/01/21 Elizabeth Garzon MD [address] [place] [address] [place] [address] OBGYN Obstetrics and Gynecology 02/01/21 documented as of this encounter
--- OUTSIDE RECORDS SUMMARY | 2024-10-30 09:03 | XMS_ITS | Encounter Summary ---
Author Organization Formerly [facility] Address [address] [place] [address] Care Team Providers Care Manager Hair Name Role Phone Steph Love MD Primary Care Provider +1- [phone] Elizabeth Garzon MD Unavailable [phone] Encounter Details Date Type Department Care Team (Late st Contact Info) Description 05/16/2021 Scanned Document [address] [place] [address] [phone] Provider, Generic Social History Tobacco Use Types [...] Description 02/13/2025 11:45 AM EST Office Visit [address] [place] [phone] Steph Love MD [address] [place] [address] [place] [address] documented as of this encounter Procedures Procedure Name Priority Date/Time Associated Diagnosis Comments IMAGING BREAST/BX/MAMMO 05/16/2021 documented in this encounter Results * IMAGING BREAST/BX/MAMMO (05/16/2021) Anatomical Region Laterality Modality Other 05/16/2021 Narrative 05/16/2021 Ordered by an unspecified provider. us Generic Provider IMG LEGACY PROCEDURES Edited Re sult - Final documented in this encounter Visit Diagnoses Not on filedocumented in this encounter Care Teams Manager Hair Relationship Specialty Start Date End Date Steph Love MD [address] [place] [address] PCP - General Internal Medicine 02/01/21 Elizabeth Garzon MD [address] [place] [address] [place] [address] OBGYN Obstetrics and Gynecology 02/01/21 documented as of this encounter
--- OUTSIDE RECORDS SUMMARY | 2024-10-30 09:03 | XMS_ITS | Encounter Summary ---
Author Organization [facility] Address [address] [place], [place] [id number] Care Team Providers Care Vice President [employer] Name Role Phone Pcp, No Primary Care Provider UnavailSteph Membreno MD Primary Care Provider +- [phone] Elizabeth Garzon MD Unavailable [phone] Encounter Details Date Type Department Care Team (Late st Contact Info) Description 11/18/2020 Scanned Document [address] [phone] Provider, Generic Social History Tobacco Use Types [...] Description 02/13/2025 11:45 AM EST Office Visit [address] [phone] Steph Love MD [address] [place] [address] documented as of this encounter Procedures Procedure Name Priority Date/Time Associated Diagnosis Comments LAB RESULT 11/18/2020 LAB RESULT 11/18/2020 LAB RESULT 11/17/2020 documented in this encounter Results * LAB RESULT (11/18/2020) 11/18/2020 Narrative Maite Madden - 11/18/2020 Ordered by an unspecified provider. us Generic Provider HX AMB PROCEDURES Edited Result - Final * LAB RESULT (11/18/2020) 11/18/2020 Narrative Yuni Normanh - 11/18/2020 Ordered by an unspecified provider. us Generic Provider HX AMB PROCEDURES Edited Result - Final * LAB RESULT (11/17/2020) 11/17/2020 Narrative Yuni Normanh - 11/17/2020 Ordered by an unspecified provider. us Generic Provider HX AMB PROCEDURES Edited Result - Final documented in this encounter Visit Diagnoses Not on filedocumented in this encounter Care Teams Vice President [employer] Relationship Specialty Start Date End Date Pcp, No PCP - General General Medicine 12/29/20 01/31/21 Steph Love MD [address] [place] [address] PCP - General Internal Medicine 02/01/21 Elizabeth Garzon MD [address] [place] [address] [place] [address] OBGYN Obstetrics and Gynecology 02/01/21 documented as of this encounter
--- OUTSIDE RECORDS SUMMARY | 2024-10-30 09:03 | XMS_ITS | Encounter Summary ---
Author Organization [facility] Address [address] [place], [place] [id number] Care Team Providers Care Ruby On Rails Engineer Name Role Phone Pcp, No Primary Care Provider Unavailanalisa e Steph Love MD Primary Care Provider +- [phone] Elizabeth Garzon MD Unavailable [phone] Encounter Details Date Type Department Care Team (Late st Contact Info) Description 04/23/2019 Scanned Document [address] [phone] Urology, Scan Social History Tobacco Use Types [...] Description 02/13/2025 11:45 AM EST Office Visit [address] [phone] Steph Love MD [address] [address] documented as of this encounter Visit Diagnoses Not on filedocumented in this encounter Care Teams Ruby On Rails Engineer Relationship Specialty Start Date End Date Pcp, No PCP - General General Medicine 12/29/20 01/31/21 Steph Love MD [address] [place] [address] PCP - General Internal Medicine 02/01/21 Elizabeth Garzon MD [address] [place] [address] [place] [address] OBGYN Obstetrics and Gynecology 02/01/21 documented as of this encounter
--- OUTSIDE RECORDS SUMMARY | 2024-10-30 09:03 | XMS_ITS | Encounter Summary ---
Author Organization [facility] Address [address] [place] [address] Care Team Providers Care Technical Solutions Engineer Name Role Phone Steph Love MD Primary Care Provider [phone]- [phone] Elizabeth Garzon MD Unavailable [phone] Encounter Details Date Type Department Care Team (Late Contact Info) Description 07/13/2022 Scanned Document [facility] CARDIOLOGY SCAN Cardiology, Scan Social History Tobacco [...] 02/13/2025 11:45 AM EST Office Visit [address] [place] [phone] Steph Love MD [address] [place] [address] documented as of this encounter Visit Diagnoses Not on filedocumented in this encounter Care Teams Technical Solutions Engineer Relationship Specialty Start Date End Date Steph Love MD [address] [place] [address] PCP - General Internal Medicine 02/01/21 Elizabeth Garzon MD [address] [place] [address] [place] [address] OBGYN Obstetrics and Gynecology 02/01/21 documented as of this encounter
--- OUTSIDE RECORDS SUMMARY | 2024-10-30 09:03 | XMS_ITS | Encounter Summary ---
Author Organization [facility] Address [address] [place], [place] [id number] Care Team Providers Care Hospital Television Rental Clerk Name Role Phone Pcp, No Primary Care Provider Unavailanalisa e Steph Love MD Primary Care Provider +- [phone] Elizabeth Garzon MD Unavailable [phone] Encounter Details Date Type Department Care Team (Late st Contact Info) Description 10/30/2019 Scanned Document [address] [phone] Provider, Generic Social History Tobacco Use Types [...] 02/13/2025 11:45 AM EST Office Visit [address] [phone] Steph Love MD [address] [place] [address] documented as of this encounter Procedures Procedure Name Priority Date/Time Associated Diagnosis Comments LAB RESULT 11/17/2019 LAB RESULT 11/17/2019 documented in this encounter Results * LAB RESULT (11/17/2019) Narrative 11/17/2019 Ordered by an unspecified provider. us Generic Provider HX AMB PROCEDURES Final Result * LAB RESULT (11/17/2019) Narrative 11/17/2019 Ordered by an unspecified provider. us Generic Provider HX AMB PROCEDURES Final Result documented in this encounter Visit Diagnoses Not on filedocumented in this encounter Care Teams Hospital Television Rental Clerk Relationship Specialty Start Date End Date Pcp, No PCP - General General Medicine 12/29/20 01/31/21 Steph Love MD [address] [place] [address] PCP - General Internal Medicine 02/01/21 Elizabeth Garzon MD [address] [place] [address] [place] [address] OBGYN Obstetrics and Gynecology 02/01/21 documented as of this encounter
--- OUTSIDE RECORDS SUMMARY | 2024-10-30 09:03 | XMS_ITS | Encounter Summary ---
Author Organization [facility] Address [address] [place], [place] [id number] Care Team Providers Care Frame Nailer Name Role Phone Pcp, No Primary Care Provider Unavailanalisa e Steph Love MD Primary Care Provider +- [phone] Elizabeth Garzon MD Unavailable [phone] Encounter Details Date Type Department Care Team (Late st Contact Info) Description 06/09/2020 Scanned Document [address] [phone] Provider, Generic Social History Tobacco Use Types [...] Description 02/13/2025 11:45 AM EST Office Visit [address] [phone] Steph Love MD [address] [place] [address] documented as of this encounter Visit Diagnoses Not on filedocumented in this encounter Care Teams Frame Nailer Relationship Specialty Start Date End Date Pcp, No PCP - General General Medicine 12/29/20 01/31/21 Steph Love MD [address] [place] [address] PCP - General Internal Medicine 02/01/21 Elizabeth Garzon MD [address] [place] [address] [place] [address] OBGYN Obstetrics and Gynecology 02/01/21 documented as of this encounter
--- OUTSIDE RECORDS SUMMARY | 2024-10-30 09:03 | XMS_ITS | Encounter Summary ---
Author Organization [facility] Address [address] [place] [address] Care Team Providers Care Awning Maker Name Role Phone Steph Love MD Primary Care Provider [phone]- [phone] Elizabeth Garzon MD Unavailable [phone] Encounter Details Date Type Department Care Team (Late st Contact Info) Description 11/21/[address] [phone] Steph Love MD [address] [place] [address] [place] [address] Social History Tobacco Use Types Packs/Day Years [...] Description 02/13/2025 11:45 AM EST Office Visit [facility] [address] [place] [address] Steph Love MD [address] [place] [address] documented as of this encounter Visit Diagnoses Not on filedocumented in this encounter Care Teams Awning Maker Relationship Specialty Start Date End Date Steph Love MD [address] [place] [address] PCP - General Internal Medicine 02/01/21 Elizabeth Garzon MD [address] [place] [address] [place] [address] OBGYN Obstetrics and Gynecology 02/01/21 documented as of this encounter
--- OUTSIDE RECORDS SUMMARY | 2024-10-30 09:03 | XMS_ITS | Encounter Summary ---
Author Organization [facility] Address [address] [place], [place] [phone] Care Team Providers Care Private Banker Name Role Phone Pcp, No Primary Care Provider UnavailSteph Membreno MD Primary Care Provider [phone]- [phone] Elizabeth Garzon MD Unavailable [phone] Encounter Details Date Type Department Care Team (Late st Contact Info) Description 03/08/2020 Scanned Document [address] [phone] Pain Management, Scan Social History Tobacco Use [...] 02/13/2025 11:45 AM EST Office Visit [address] [phone] Steph Love MD [address] [address] documented as of this encounter Visit Diagnoses Not on filedocumented in this encounter Care Teams Private Banker Relationship Specialty Start Date End Date Pcp, No PCP - General General Medicine 12/29/20 01/31/21 Steph Love MD [address] [place] [address] PCP - General Internal Medicine 02/01/21 Elizabeth Garzon MD [address] [place] [address] [place] [address] OBGYN Obstetrics and Gynecology 02/01/21 documented as of this encounter
--- OUTSIDE RECORDS SUMMARY | 2024-10-30 09:03 | XMS_ITS | Encounter Summary ---
Author Organization [facility] Address [address] [place], [place] [id number] Care Team Providers Care Senior Care Assistant Name Role Phone Steph Love MD Primary Care Provider [phone]- [phone] Elizabeth Garzon MD Unavailable [phone] Encounter Details Date Type Department Care Team (Late Contact Info) Description 04/07/2021 Scanned Document [facility] Steph Love MD [address] [place], [place] [phone] Social History Tobacco Use Types Packs/Day Years [...] 02/13/2025 11:45 AM EST Office Visit [address] [place] [phone] Steph Love MD [address] [place] [address] [place] [address] documented as of this encounter Visit Diagnoses Not on filedocumented in this encounter Care Teams Senior Care Assistant Relationship Specialty Start Date End Date Steph Love MD [address] [place] [address] PCP - General Internal Medicine 02/01/21 Elizabeth Garzon MD [address] [place] [address] [place] [address] OBGYN Obstetrics and Gynecology 02/01/21 documented as of this encounter
--- OUTSIDE RECORDS SUMMARY | 2024-10-30 09:03 | XMS_ITS | Encounter Summary ---
Author Organization [facility] Address [address] [place], [place] [id number] Care Team Providers Care Recycling Sorter Name Role Phone Pcp, No Primary Care Provider Unavailanalisa e Steph Love MD Primary Care Provider +- [phone] Elizabeth Garzon MD Unavailable [phone] Encounter Details Date Type Department Care Team (Late st Contact Info) Description 11/30/2020 Scanned Document [address] [phone] Provider, Generic Social History Tobacco Use Types [...] Description 02/13/2025 11:45 AM EST Office Visit [address] [phone] Steph Love MD [address] [place] [address] documented as of this encounter Visit Diagnoses Not on filedocumented in this encounter Care Teams Recycling Sorter Relationship Specialty Start Date End Date Pcp, No PCP - General General Medicine 12/29/20 01/31/21 Steph Love MD [address] [place] [address] PCP - General Internal Medicine 02/01/21 Elizabeth Garzon MD [address] [place] [address] [place] [address] OBGYN Obstetrics and Gynecology 02/01/21 documented as of this encounter
--- OUTSIDE RECORDS SUMMARY | 2024-10-30 09:03 | XMS_ITS | Encounter Summary ---
Author Organization [facility] Address [address] [place], [place] [id number] Care Team Providers Care Waste Machine Tender Name Role Phone Pcp, No Primary Care Provider UnavailSteph Membreno MD Primary Care Provider [phone]- [phone] Elizabeth Garzon MD Unavailable [phone] Encounter Details Date Type Department Care Team (Late st Contact Info) Description 01/09/2020 Scanned Document [address] [phone] Provider, Generic Social History Tobacco [...] Description 02/13/2025 11:45 AM EST Office Visit [address] [place] [phone] Steph Love MD 100 [facility] [address] [place] [address] documented as of this encounter Procedures Procedure Name Priority Date/Time Associated Diagnosis Comments IMAGING BREAST/BX/MAMMO 01/09/2020 documented in this encounter Results * IMAGING BREAST/BX/MAMMO (01/09/2020) Anatomical Region Laterality Modality Other Narrative 01/09/2020 Ordered by an unspecified provider. us Generic Provider IMG LEGACY PROCEDURES Edited Re sult - Final documented in this encounter Visit Diagnoses Not on filedocumented in this encounter Care Teams Waste Machine Tender Relationship Specialty Start Date End Date Pcp, No PCP - General General Medicine 12/29/20 01/31/21 Steph Love MD [address] [place] [address] PCP - General Internal Medicine 02/01/21 Elizabeth Garzon MD [address] [place] [address] [place] [address] OBGYN Obstetrics and Gynecology 02/01/21 documented as of this encounter
== END 2024-10-30 08:26 | disposition home or self-care (01) ==
LOC: HO.HMGCX 08:25
PROVIDERS: PCP Internal Medicine; Visit Provider Nurse Practitioner Family
DX: N20.0 Calculus of kidney (principal)
CPT/HCPCS: 76775

== ENCOUNTER → 2024-10-30 08:32 | Outpatient (BNV) | payer BC, SELFPAY | PROVIDERS: PCP Internal Medicine; Visit Provider Radiology Diagnostic Radiology | DX: N20.0 Calculus of kidney (principal) | CPT/HCPCS: 76775 ==

== ENCOUNTER 2024-11-11 10:29 | Outpatient (AMB) | payer BC, SELFPAY ==
--- NOTE | 2024-11-11 10:32 | MHC.OFFVIS ---
Intake Visit Reasons: 6m/ US Intake Note: Patient is present for 6M/US Urology Medication:NONE Antibiotic Allergy:NONE Blood Thinner:NONE Timber Management Assistant Required: No Allergies coconut Allergy (Intermediate, Verified 11/11/24 11:06) DIFFICULTY BREATHING/HIVES coconut Allergy (Unknown, Uncoded 11/11/24 11:06) Unknown Medication List - Last Reconciled 11/11/24 by ISABELL Garza albuterol sulfate 90 mcg/actuation inhalation atorvastatin 10 mg PO DAILY lisinopril 10 mg PO DAILY montelukast mg PO DAILY sertraline 100 mg PO DAILY tirzepatide (Mounjaro) mg subcut HPI Comments Details: Tiny is a pleasant 44-year-old female patient of Dr. Love. She presents to the office today for follow-up of her nephrolithiasis. In discussion with the patient today she reports to be doing and feeling well. She discusses having recently started a GLP 1 and discusses how helpful this has been as she has intentionally lost 35 lb and feels she has significantly more energy. She does report she is more active and has been experiencing more lumbar discomfort however is unsure if this is related to her nephrolithiasis or increase in movement. Recent renal imaging results were reviewed with the patient today 10/27 bilateral kidneys are normal in size and echotexture. No hydronephrosis noted bilaterally. Right kidney with 4 mm, 5 mm, and 3 mm nonobstructing stones. Left kidney with 5 mm, 6 mm, 6 mm, and 7 mm nonobstructing renal calculi per radiology report. We did discussed increase in stone burden. She does report she is drinking plenty of water daily. In office urinalysis results reviewed with the patient today. She also reports adding 1 oz of lemon juice to water daily. In office urinalysis results reviewed with the patient today. She denies urinary urgency, incontinence, nocturia, hematuria, dysuria, foul smelling urine, changes to urinary stream, fever, and or chills. We discussed metabolic workup. She otherwise offers no other issues or concerns at time. [facility] Medical History Hydronephrosis with ureteropelvic junction (UPJ) obstruction Surgical History H/O: hysterectomy History of surgery Review of Systems Const Reports as per [facility] Eyes Reports no additional complaints ENT Reports no additional complaints Card Reports no additional complaints Resp Reports no additional complaints GI Reports as per HPI Reports as per HPI Neuro Reports no additional complaints Physical Exam Const General: cooperative, healthy appearing, comfortable, no acute distress, well developed, alert and awake Nutritional Appearance: overweight Orientation/consciousness: patient oriented x3 Limitations: no limitations HEENT Head: Yes normal to inspection, Yes normocephalic and Yes atraumatic Ears: hearing grossly normal bilaterally Neck Neck: Yes normal visual inspection and Yes trachea midline Chest Chest palpation & inspection: normal inspection of the chest Resp Effort & Inspection: normal respiratory effort and able to speak in complete sentences Cardio Rate: regular rate General: Yes no CVA tenderness Back/Spine/Pelvis Back: no CVA tenderness Neuro General: patient oriented x3 Extrem General: Yes normal to inspection Psych Appearance: grossly normal and well kempt Mental Status: mental status grossly normal Speech and movement: Normal speech and movement present and Clear speech present Affect: normal affect Attitude: cooperative Thought process: Normal thought process present Thought content: Normal thought content present Insight: Fair insight present (Psych) Judgement: Fair judgement present (Psych) Results AMB Urinalysis, Automated UA Leukoctes 0 Familia/uL Last Edit by MARY Peterson on 11/11/24 10:41 UA Nitrite Negative Last Edit by MARY Peterson on 11/11/24 10:41 UA Urobilinogen 0.2 mg/dL Last Edit by MARY Peterson on 11/11/24 10:41 UA Protein 15 mg/dL Last Edit by Isatu Ley CCM on 11/11/24 10:41 UA pH 8.0 Last Edit by MARY Peterson on 11/11/24 10:41 UA Blood 0 Talon/uL Last Edit by MARY Peterson on 11/11/24 10:41 UA Specific Denver 1.010 Last Edit by Isatu Ley CCM on 11/11/24 10:41 UA Ketone Negative Last Edit by Isatu Ley CCM on 11/11/24 10:41 UA Bilirubin 0 mg/dL Last Edit by MARY Peterson on 11/11/24 10:41 UA Glucose 0 mg/dL Last Edit by MARY Peterson on 11/11/24 10:41 Results Reviewed Results Reviewed: Laboratory Last Values Urine pH (Auto) 8.0 11/11/24 10:41 Specific [place] (Auto) 1.010 11/11/24 10:41 Urine Protein (Auto) 15 mg/dL 11/11/24 10:41 Glucose (UA)(Auto) 0 mg/dL 11/11/24 10:41 Urine Ketones (Auto) Negative 11/11/24 10:41 Urine Blood (Auto) 0 Talon/uL 11/11/24 10:41 Urine Nitrite (Auto) Negative 11/11/24 10:41 Urine Bilirubin (Auto) 0 mg/dL 11/11/24 10:41 Urine Urobilinogen (Auto) 0.2 mg/dL 11/11/24 10:41 Leukocyte Esterase (Auto) 0 Familia/uL 11/11/24 10:41 Date of Service: 10/30/24 Procedure(s): US renal BI Findings: Right kidney normal size and echotexture, 11.4 cm length. Mild pelvicaliectasis. No hydronephrosis. Nonobstructing caliceal stone midpole measuring 4 x 3 x 2 mm previously measuring 4 x 3 x 5 mm. Adjacent nonobstructing caliceal stone measuring 3 x 3 x 2 mm. Normal color flow. No renal masses. Left kidney normal size and echotexture, 12.5 cm length. No hydronephrosis or mass. Normal color flow. Nonobstructing caliceal stone upper pole measuring 5 x 5 x 5 mm previously measuring 5 x 5 x 6 mm and midpole measuring 10 x 6 x 6 mm previously measuring 6 x 7 x 4 mm. Impression: 1. Bilateral nephrolithiasis. Mild pelvicaliectasis right kidney. No hydronephrosis. Assessment & Plan Assessment & Plan (1) Flank pain: Code(s): R10.9 - Unspecified abdominal pain Category: Medical (2) Nephrolithiasis: Code(s): N20.0 - Calculus of kidney Category: Medical Plan In office urinalysis results with the patient today; as noted above. Recent renal imaging results with the patient today; as noted above. We discussed obtaining labs and [facility] for further assessment evaluation. We discussed increase in stone burden. She currently denies any bothersome urinary issues. She reports be happy with current voiding parameters. Continue adding 1 oz of lemon juice to water daily. Continue with increase in hydration. Will obtain [facility]ol[facility] and labs Follow-up in 3 months with [facility] and labs; or sooner with any issues, concerns, and or questions. Orders: Orders Basic Metabolic Panel Today N20.0 - Calculus of kidney Magnesium Today N20.0 - Calculus of kidney URORISK Today N20.0 - Calculus of kidney Parathyroid Hormone Intact Today N20.0 - Calculus of kidney AMB Urinalysis Automated Today Z13.9 - Encounter for screening, unspecified Calcium Today N20.0 - Calculus of kidney Uric Acid Today N20.0 - Calculus of kidney Vitamin D 25-OH Total Today N20.0 - Calculus of kidney Phosphorus Today N20.0 - Calculus of kidney Patient Instructions: The patient had an opportunity to ask questions regarding the treatment plan. All questions were answered. Physical exam, labs, and imaging were discussed and reviewed in detail. As well as risks, benefits, and discussion of treatment choices. No major barriers to understanding were identified. The patient expressed understanding and agreement with the above treatment plan. The patient was made aware they should contact our office by phone for worsening of their current condition, the appearance of new symptoms, or with any questions or concerns. Compliance is encouraged with any medications and follow up testing that is ordered. It is a privilege to be allowed the opportunity to participate in? your urological care.? Again, if you have any questions or concerns If you have any questions or concerns please do not hesitate to contact me. The office is [phone]. This note is constructed using voice recognition software. While every effort has been made to ensure accuracy leather staker errors may have been included. Yours sincerely, ISABELL Garza Coding Level of Care Code Est Pt Level 3 (95667) Diagnoses Flank pain R10.9 Nephrolithiasis N20.0
--- OUTSIDE RECORDS SUMMARY | 2024-11-11 12:19 | XMS_ITS | Encounter Summary ---
Author Organization [facility] Address [address] [place], [place] [id number] Care Team Providers Care Paper Sorter And Counter Name Role Phone Pcp, No Primary Care Provider UnavailSteph Membreno MD Primary Care Provider [phone]- [phone] Elizabeth Garzon MD Unavailable [phone] Encounter Details Date Type Department Care Team (Late st Contact Info) Description 11/18/2020 Scanned Document [address] [phone] Provider, Generic Social History Tobacco Use Types [...] 02/13/2025 11:45 AM EST Office Visit [address] [phone] Steph Love MD [address] [place] [address] documented as of this encounter Procedures Procedure [...] on filedocumented in this encounter Care Teams Paper Sorter And Counter Relationship Specialty Start Date End Date Pcp, No PCP - General General Medicine 12/29/20 01/31/21 Steph Love MD [address] [place] [address] PCP - General Internal Medicine 02/01/21 Elizabeth Garzon MD [address] [place] [address] [place] [address] OBGYN Obstetrics and Gynecology 02/01/21 documented as of this encounter
--- OUTSIDE RECORDS SUMMARY | 2024-11-11 12:19 | XMS_ITS | Encounter Summary ---
Author Organization [facility] Address [address] [place] [address] Care Team Providers Care Ceo Na Name Role Phone Steph Love MD Primary Care Provider [phone] Elizabeth Garzon MD Unavailable [phone] Reason for Visit * Reason Comments Referral Appointment Encounter Details Date Type Department Care Team (Late Contact Info) Description 03/18/[address] [phone] Steph Love MD [address] [place] [address] Referral; Appointment Social History Tobacco Use Types [...] Description 02/13/2025 11:45 AM EST Office Visit [address] [place] [address] Steph Love MD [address] [place] [address] documented as of this encounter Visit Diagnoses Not on filedocumented in this encounter Care Teams Ceo Na Relationship Specialty Start Date End Date Steph Love MD [address] [place] [address] PCP - General Internal Medicine 02/01/21 Elizabeth Garzon MD [address] [place] [address] [place] [address] OBGYN Obstetrics and Gynecology 02/01/21 documented as of this encounter
--- OUTSIDE RECORDS SUMMARY | 2024-11-11 12:19 | XMS_ITS | Encounter Summary ---
Author Organization [facility] Address [address] [place], [place] [id number] Care Team Providers Care Metal Neutralizer Name Role Phone Pcp, No Primary Care Provider Unavailanalisa e Steph Love MD Primary Care Provider +- [phone] Elizabeth Garzon MD Unavailable [phone] Encounter Details Date Type Department Care Team (Late st Contact Info) Description 11/18/2020 Scanned Document [address] [phone] Provider, Generic Social History Tobacco Use Types [...] Description 02/13/2025 11:45 AM EST Office Visit [address] [phone] Steph Love MD [address] [place] [address] documented as of this encounter Visit Diagnoses Not on filedocumented in this encounter Care Teams Metal Neutralizer Relationship Specialty Start Date End Date Pcp, No PCP - General General Medicine 12/29/20 01/31/21 Steph Love MD [address] [place] [address] PCP - General Internal Medicine 02/01/21 Elizabeth Garzon MD [address] [place] [address] [place] [address] OBGYN Obstetrics and Gynecology 02/01/21 documented as of this encounter
--- OUTSIDE RECORDS SUMMARY | 2024-11-11 12:19 | XMS_ITS | Clinical Summary ---
Author Organization [facility] [place] [facility] Address [address] [place] [address] Care Team Providers Care Processor Solid Propellant Name Role Phone Steph Love MD Primary Care Provider [phone] Elizabeth Garzon MD Unavailable [phone] Allergies Active Allergy Reactions Criticality Noted Date Comments Coconut Hives Medium 02/01/2021 Coconut (Cocos Nucifera) Hives Medium 11/18/2020 Escitalopram Other (See Comments) 11/18/2020 Medications albuterol (PROVENTIL HFA; VENTOLIN HFA) 108 (90 Base) MCG/ACT inhalerIndication s:Chest pressure,Environm ental allergies,Uncompl icated asthma, unspecified asthma severity, unspecified whether persistent Inhale 2 puffs 4 (four) times a day. 1 each 3 Active atorvastatin (LIPITOR) 10 MG tabletIndications :Hypercholesterol emia TAKE ONE TABLET BY MOUTH EVERY DAY 90 tablet 1 5 Active Mounjaro 7.5 MG/0.5ML pen-injectorIndic ations:Type 2 diabetes mellitus without complication, without long-term current use of insulin (HCC) INJECT 1 PEN (7.5 MG) UNDER THE SKIN ONCE WEEKLY 2 mL 3 5 Active sertraline (ZOLOFT) 100 MG tabletIndications :Depression with anxiety TAKE ONE TABLET BY MOUTH EVERY DAY 90 tablet 5 Active montelukast (SINGULAIR) 10 MG tabletIndications :Environmental allergies TAKE ONE TABLET BY MOUTH IN THE EVENING 30 tablet 1 5 Active lisinopril (PRINIVIL,ZeSTRIL ) 10 MG tabletIndications :Primary hypertension Take 2 tablets (20 mg total) by mouth daily. 180 tablet 1 5 Active lisinopril (PRINIVIL,ZeSTRIL ) 20 MG tabletIndications :Primary hypertension TAKE ONE TABLET BY MOUTH EVERY DAY 90 tablet 1 5 10/15/19 25 Discontinu ed(Reorder ) Active Problems Problem Noted Date Diagnosed Date [...] Team Description 10/15/2024 1:30 PM EDT Telemedicine [facility] Endocrinology [address] [phone] Ruy Larsen MD Subclinical hyperthyroidism (Primary Dx); Type 2 diabetes mellitus without complication, without long-term current use of insulin (HCC) 10/14/2024 2:00 PM EDT Office Visit [address] [phone] Steph Love MD Hyperlipidemia, unspecified hyperlipidemia type (Primary Dx); Primary hypertension ; Type 2 diabetes mellitus without complication, without long-term current use of insulin (HCC); Depression with anxiety; Subclinical hyperthyroidism ; Morbid obesity (HCC) 10/14/2024 Travel 10/02/[address] [phone] Steph Love MD Environmental allergies 08/27/[address] [phone] Steph Love MD Depression with anxiety from Last 3 Months Immunizations Immunization Administration [...] = 0.6 oz pur e alcohol) rarely [facility] Utilities Answer Date Recorded In the past 12 months has e [employer], gas, oil, or water [employer] threatened to shut off services in your home? No 04/15/2024 Social Connection and Isolation Panel [NHANES] A nswer Date Recorded In a typical week, how many times do you talk on the phone with family, friends, or neighbors? Three times a week 04/15/2024 Frequency of Social Gatherin gs with Friends and Family Not on file 04/15/2024 Attends Sabianist Services Not on file 04/15 Active Member [...] any time in the past 12 m [facility], were you homeless or living in a custodial (including now)? No 04/15/2024 Education Answer Date [...] Description 02/13/2025 11:45 AM EST Office Visit [facility] [address] [place] [address] Steph Love MD [address] [place] [address] Health Maintenance Due Date Last Done Comments Hepatitis C Virus Screening 1979 Foot Exam 1989 Hepatitis B Vaccines (1 of 3 - 19+ 3-dose series) 1998 Pneumococcal Vaccine: Pediat alondra (0-5 Years) and At-Risk Patients (6 to 49 Years) (1 of 2 - PCV) 1998 HPV Vaccines (1 - 3-dose SCD M series) 2006 Mammogram 05/17/2023 05/16/2021, 01/09/2020 Colonoscopy 02/07/2024 Ophthalmology Exam 03/27/2024 03/27/2023, 0 03/22/2022 (Previously Completed), 08/08/2019 Physical 04/03/2024 04/03/2022 Influenza Vaccine 10/03/2024 11/04/2019, 01/03/2019 COVID-19 Vaccine (3 - 2024-2 6 season) 2024 06/03/2020, 05/14/2020 Lipid Panel 02/01/2025 02/02/2024, 08/0 11/2023, 11/28/2022, Additional history exists Microalbumin/Creatinine Rati [...] TSH, HIGHLY SENSITIVE (10/08/2024 9:01 AM EDT) TSH, Highly Sensitive 0.23(L) mIU/L [facility] Comment: Reference Range > or = 20 Years 0.40-4.50 Ranges First trimester 0.26-2.66 Second trimester 0.55-2.73 Third trimester 0.43-2.91 Blood Blood specimen / Unknown 10/08/2024 9:01 AM EDT 10/08/2024 9:01 AM EDT Narrative [facility] - 10/09/2024 9:09 AM EDT FASTING:YES FASTING: YES us Steph Love MD LAB BLOOD ORDERABLES Final Result Performing Organization Address City/[facility]/ZIP Co de Phone Number [employer] [address] [place] [phone] * T4, FREE (10/08/2024 9:01 AM EDT) T4, Free 1.0 0.8 - 1.8 ng/dL [facility] Blood specimen / Unknown 10/08/2024 9:01 AM EDT 10/08/2024 9:01 AM EDT Narrative [facility] - 10/09/2024 9:09 AM EDT FASTING:YES FASTING: YES Steph Love MD LAB BLOOD ORDERABLES Final Result Performing Organization Address [facility] Co de Phone Number [employer] [address] [place] [phone] * (ABNORMAL) Hemoglobin A1C (10/08/2024 9:01 AM EDT) Hemoglobin A1C 5.9(H) <5.7 % [facility] Comment: For someone without known diabetes, a [...] BLOOD ORDERABLES Final Result Performing Organization Address [facility] Co de Phone Number [employer] [address] [place] [phone] * (ABNORMAL) BASIC METABOLIC PANEL (10/08/2024 9:01 AM EDT) [facility] Signature Glucose 108(H) 65 - 99 mg/dL [facility] Comment: Fasting reference interval For someone without known diabetes, a glucose value between 100 and 125 mg/dL is consistent with prediabetes and should be confirmed with a follow-up test. Blood Urea Nitrogen (BUN) 11 7 - 25 mg/dL [facility] Creatinine 0.65 0.50 - 0.99 mg/dL [facility] Creatinine w/ eGFR 111 > OR = 60 mL/min/1. 73m2 [facility] BUN/Creatinine Ratio SEE NOTE: 6 - 22 (calc) [facility] Comment: Not Reported: BUN and Creatinine are within reference range. Sodium 137 135 - 146 mmol/L [facility] Potassium 4.3 3.5 - 5.3 mmol/L [facility] Chloride 100 98 - 110 mmol/L [facility] CO2 29 20 - 32 mmol/L [facility] Calcium 10.2 8.6 - 10.2 mg/dL [facility] Blood specimen / Unknown 10/08/2024 9:01 AM EDT 10/08/2024 9:01 AM EDT Narrative [facility] - 10/09/2024 9:09 AM EDT FASTING:YES FASTING: YES Steph Love MD LAB BLOOD ORDERABLES Final Result Performing Organization Address [facility] de Phone Number [employer] [facility] [address] [place] [phone] * Microalbumin, Creatinine, Urine, Random (04/09/2024 9:06 AM EST) Creatinine, Urine, Random 189 20 - 275 mg/dL [facility] Microalbumin, Urine, Random 0.9 See Note: mg/dL [facility] Comment: Reference Range: Reference Range Not established Microalbumin/Creat inine Ratio 5 <30 mg/g creat Printi Comment: The ADA defines abnormalities in albumin [...] Ruy Larsen MD URINE ORDERABLES Final Result [facility] [address] [place] [phone] * (ABNORMAL) Lipid Panel [facility] LDL (02/02/2024 8:03 AM EST) Cholesterol, Total 172 <200 mg/dL [facility] Cholesterol, HDL 51 > OR = 50 mg/dL [facility] Triglycerides 209(H) <150 mg/dL [facility] Comment: If a non-fasting specimen was collected, consider repeat triglyceride testing on a fasting specimen if clinically indicated. Parth et al. J. of Clin. Lipidol. 2015;9:129-169. LDL Cholesterol 91 mg/dL (calc) Printi Comment: Reference range: <100 Desirable range <100 mg/dL for primary prevention; <70 mg/dL for patients with CHD or diabetic patients with > or = 2 CHD risk factors. LDL-C is now calculated using the Carol calculation, which is a validated novel method providing better accuracy than the Friedewald equation in the estimation of LDL-C. Dmitry LOMBARDO et al. ROSS. 2013;310(19): 5364-2113 (http://education.yourdelivery.moneymeets/faq/HPC167) Cholesterol/HDL Ratio 3.4 <5.0 (calc) Printi Non HDL Chol. (LDL+VLDL) 121 <130 mg/dL (calc) Print[facility] Comment: For patients with diabetes plus 1 major ASCVD risk factor, treating to a non-HDL-C goal of <100 mg/dL (LDL-C of <70 mg/dL) is considered a therapeutic option. Blood Blood specimen / Unknown 02/02/2024 8:03 AM EST 02/02/2024 8:03 AM EST Narrative [facility] - 02/04/2024 3:49 PM EST FASTING:YES FASTING: YES us Steph Love MD LAB BLOOD ORDERABLES Final Result Performing Organization Address City/State/[facility] Co de Phone Number [employer] [address] [place] [phone] * OPHTHALMOLOGY TESTING PROCEDURES (03/27/2023) us Scan Ophthalmology HX AMB PROCEDURES Edited Resu lt - Final * PATHOLOGY GYNECOLOGY (07/13/2022) us External Provider MD LE HX PATH PROCEDURES Nargis l Result * IMAGING BREAST/BX/MAMMO (05/16/2021) Anatomical Region Laterality Modality Other 05/16/2021 Narrative 05/16/2021 Ordered by an unspecified provider. us Generic Provider IMG LEGACY PROCEDURES Edited Re sult - Final from Last 3 Months or Most Recently Relevant to Health Maintenance Insurance [employer] PPO Care Teams Processor Solid Propellant Relationship Specialty Start Date End Date Steph Love MD [address] [place] [address] PCP - General Internal Medicine 02/01/21 Elizabeth Garzon MD [address] [place] [address] [place] [address] OBGYN Obstetrics and Gynecology 02/01/21
--- OUTSIDE RECORDS SUMMARY | 2024-11-11 12:19 | XMS_ITS | Encounter Summary ---
Author Organization [facility] Address [address] [place], [place] [id number] Care Team Providers Care Accounting Instructor Name Role Phone Steph Love MD Primary Care Provider [phone] Elizabeth Garzon MD Unavailable [phone] Encounter Details Date Type Department Care Team (Late Contact Info) Description 07/15/2021 Scanned Document [facility] PRIMARY CARE SCAN Steph Love MD [address] [place] [address] [place], [place] [id number] Social History Tobacco Use Types Packs/Day Years [...] Description 02/13/2025 11:45 AM EST Office Visit [address] [place] [phone] Steph Love MD [address] [place] [address] [place] [address] documented as of this encounter Visit Diagnoses Not on filedocumented in this encounter Care Teams Accounting Instructor Relationship Specialty Start Date End Date Steph Love MD [address] [place] [address] PCP - General Internal Medicine 02/01/21 Elizabeth Garzon MD [address] [place] [address] [place] [address] OBGYN Obstetrics and Gynecology 02/01/21 documented as of this encounter
--- OUTSIDE RECORDS SUMMARY | 2024-11-11 12:19 | XMS_ITS | Encounter Summary ---
Author Organization [facility] Address [address] [place], [place] [id number] Care Team Providers Care Tufting Machine Fixer Name Role Phone Pcp, No Primary Care Provider Unavailanalisa e Steph Love MD Primary Care Provider +- [phone] Elizabeth Garzon MD Unavailable [phone] Encounter Details Date Type Department Care Team (Late st Contact Info) Description 04/23/2019 Scanned Document [address] [phone] Urology, Scan Social History Tobacco Use Types [...] Description 02/13/2025 11:45 AM EST Office Visit [address] [phone] Steph Love MD [address] [phone] documented as of this encounter Visit Diagnoses Not on filedocumented in this encounter Care Teams Tufting Machine Fixer Relationship Specialty Start Date End Date Pcp, No PCP - General General Medicine 12/29/20 01/31/21 Steph Love MD [address] [place] [address] PCP - General Internal Medicine 02/01/21 Elizabeth Garzon MD [address] [place] [address] [place] [address] OBGYN Obstetrics and Gynecology 02/01/21 documented as of this encounter
--- OUTSIDE RECORDS SUMMARY | 2024-11-11 12:19 | XMS_ITS | Encounter Summary ---
Author Organization [facility] Address [address] [place], [place] [address] Care Team Providers Care Dye Beck Reel Operator Name Role Phone Pcp, No Primary Care Provider Unavailanalisa e Steph Love MD Primary Care Provider +- [phone] Elizabeth Garzon MD Unavailable [phone] Encounter Details Date Type Department Care Team (Late st Contact Info) Description 10/30/2019 Scanned Document [address] [phone] Provider, Generic Social History Tobacco Use Types [...] 02/13/2025 11:45 AM EST Office Visit [address] [phone] Steph Love MD [address] [place] [address] documented as of this encounter Procedures Procedure [...] on filedocumented in this encounter Care Teams Dye Beck Reel Operator Relationship Specialty Start Date End Date Pcp, No PCP - General General Medicine 12/29/20 01/31/21 Steph Love MD [address] [place] [address] PCP - General Internal Medicine 02/01/21 Elizabeth Garzon MD [address] [place] [address] [place] [address] OBGYN Obstetrics and Gynecology 02/01/21 documented as of this encounter
--- OUTSIDE RECORDS SUMMARY | 2024-11-11 12:19 | XMS_ITS | Encounter Summary ---
Author Organization [facility] Address [address] [place], [place] [address] Care Team Providers Care Digital Content Coordinator Name Role Phone Pcp, No Primary Care Provider UnavailSteph Membreno MD Primary Care Provider +- [phone] Elizabeth Garzon MD Unavailable [phone] Encounter Details Date Type Department Care Team (Late st Contact Info) Description 11/16/2020 Scanned Document [address] [phone] Provider, Generic Social History Tobacco Use Types [...] Description 02/13/2025 11:45 AM EST Office Visit [address] [phone] Steph Love MD [address] [place] [address] documented as of this encounter Procedures Procedure [...] on filedocumented in this encounter Care Teams Digital Content Coordinator Relationship Specialty Start Date End Date Pcp, No PCP - General General Medicine 12/29/20 01/31/21 Steph Love MD [address] [place] [address] PCP - General Internal Medicine 02/01/21 Elizabeth Garzon MD [address] [place] [address] [place] [address] OBGYN Obstetrics and Gynecology 02/01/21 documented as of this encounter
--- OUTSIDE RECORDS SUMMARY | 2024-11-11 12:19 | XMS_ITS | Encounter Summary ---
Author Organization [facility] Address [address] [place], [place] [address] Care Team Providers Care Aircraft Maintenance Technician Name Role Phone Pcp, No Primary Care Provider Unavailanalisa e Steph Love MD Primary Care Provider +- [phone] Elizabeth Garzon MD Unavailable [phone] Encounter Details Date Type Department Care Team (Late st Contact Info) Description 11/30/2020 Scanned Document [address] [phone] Provider, Generic Social History Tobacco Use Types [...] Description 02/13/2025 11:45 AM EST Office Visit [address] [phone] Steph Love MD [address] [place] [address] documented as of this encounter Visit Diagnoses Not on filedocumented in this encounter Care Teams Aircraft Maintenance Technician Relationship Specialty Start Date End Date Pcp, No PCP - General General Medicine 12/29/20 01/31/21 Steph Love MD [address] [place] [address] PCP - General Internal Medicine 02/01/21 Elizabeth Garzon MD [address] [place] [address] [place] [address] OBGYN Obstetrics and Gynecology 02/01/21 documented as of this encounter
--- OUTSIDE RECORDS SUMMARY | 2024-11-11 12:19 | XMS_ITS | Encounter Summary ---
Author Organization [facility] Address [address] [place], [place] [address] Care Team Providers Care Potash Flaker Name Role Phone Steph Love MD Primary Care Provider +1- [phone] Elizabeth Garzon MD Unavailable [phone] Encounter Details Date Type Department Care Team (Late Contact Info) Description 04/01/2021 Scanned Document [address] [phone] Steph Love MD [address] [place] [address] Social History Tobacco Use Types Packs/Day Years [...] Description 02/13/2025 11:45 AM EST Office Visit [address] [phone] Steph Love MD [address] [place] [address] documented as of this encounter Visit Diagnoses Not on filedocumented in this encounter Care Teams Potash Flaker Relationship Specialty Start Date End Date Steph Love MD [address] [place] [address] PCP - General Internal Medicine 02/01/21 Elizabeth Garzon MD [address] [place] [address] [place] [address] OBGYN Obstetrics and Gynecology 02/01/21 documented as of this encounter
--- OUTSIDE RECORDS SUMMARY | 2024-11-11 12:19 | XMS_ITS | Encounter Summary ---
Author Organization [facility] Address [address] [place], [place] [address] Care Team Providers Care Senior Pl Sql Developer Name Role Phone Pcp, No Primary Care Provider UnavailSteph Membreno MD Primary Care Provider +1- [phone] Elizabeth Garzon MD Unavailable [phone] Encounter Details Date Type Department Care Team (Late st Contact Info) Description 01/09/2020 Scanned Document [address] [phone] Provider, Generic Social History Tobacco [...] Description 02/13/2025 11:45 AM EST Office Visit [address] [place] [phone] Steph Love MD 100 [facility] [address] [place] [address] documented as of this encounter Procedures Procedure Name Priority Date/Time Associated Diagnosis Comments IMAGING BREAST/BX/MAMMO 01/09/2020 documented in this encounter Results * IMAGING BREAST/BX/MAMMO (01/09/2020) Anatomical Region Laterality Modality Other Narrative 01/09/2020 Ordered by an unspecified provider. us Generic Provider IMG LEGACY PROCEDURES Edited Re sult - Final documented in this encounter Visit Diagnoses Not on filedocumented in this encounter Care Teams Senior Pl Sql Developer Relationship Specialty Start Date End Date Pcp, No PCP - General General Medicine 12/29/20 01/31/21 Steph Love MD [address] [place] [address] PCP - General Internal Medicine 02/01/21 Elizabeth Garzon MD [address] [place] [address] [place] [address] OBGYN Obstetrics and Gynecology 02/01/21 documented as of this encounter
--- OUTSIDE RECORDS SUMMARY | 2024-11-11 12:19 | XMS_ITS | Encounter Summary ---
Author Organization [facility] Address [address] [place] [address] Care Team Providers Care Chief Client Officer Name Role Phone Steph Love MD Primary Care Provider +1- [phone] Elizabeth Garzon MD Unavailable [phone] Encounter Details Date Type Department Care Team (Late st Contact Info) Description 03/26/2021 Scanned Document [address] [phone] Urgent Care, Scan Social History Tobacco Use [...] 02/13/2025 11:45 AM EST Office Visit [address] [phone] Steph Love MD [address] [place] [address] documented as of this encounter Visit Diagnoses Not on filedocumented in this encounter Care Teams Chief Client Officer Relationship Specialty Start Date End Date Steph Love MD [address] [place] [address] PCP - General Internal Medicine 02/01/21 Elizabeth Garzon MD [address] [place] [address] [place] [address] OBGYN Obstetrics and Gynecology 02/01/21 documented as of this encounter
--- OUTSIDE RECORDS SUMMARY | 2024-11-11 12:19 | XMS_ITS | Encounter Summary ---
Author Organization [facility] Address [address] [place], [place] [id number] Care Team Providers Care Emergency Room Nurse Name Role Phone Steph Love MD Primary Care Provider +1- [phone] Elizabeth Garzon MD Unavailable Encounter Details Date Type Department Care Team (Late st Contact Info) Description 02/16/2023 Scanned Document [facility] PRIMARY CARE SCAN Primary Care, Scan [...] Description 02/13/2025 11:45 AM EST Office Visit [address] [place] [address] [phone] Steph Love MD [address] [place] [address] [place] [address] documented as of this encounter Visit Diagnoses Not on filedocumented in this encounter Care Teams Emergency Room Nurse Relationship Specialty Start Date End Date Steph Love MD [address] [place] [address] PCP - General Internal Medicine 02/01/21 Elizabeth Garzon MD [address] [place] [address] [place] [address] OBGYN Obstetrics and Gynecology 02/01/21 documented as of this encounter
--- OUTSIDE RECORDS SUMMARY | 2024-11-11 12:19 | XMS_ITS | Encounter Summary ---
Author Organization [facility] Address [address] [place] [address] Care Team Providers Care Varnish Dipper Name Role Phone Pcp, No Primary Care Provider Unavailanalisa e Steph Love MD Primary Care Provider +- [phone] Elizabeth Garzon MD Unavailable [phone] Encounter Details Date Type Department Care Team (Late st Contact Info) Description 08/08/2019 Scanned Document [address] [phone] Provider, Generic Social History Tobacco Use Types [...] Description 02/13/2025 11:45 AM EST Office Visit [address] [phone] Steph Love MD [address] [place] [address] documented as of this encounter Procedures Procedure Name Priority Date/Time Associated Diagnosis Comments HX OPHTHALMOLOGY TESTING PROCEDURES 08/08/2019 documented in this encounter Results * HX OPHTHALMOLOGY TESTING PROCEDURES (08/08/2019) Narrative 08/08/2019 Ordered by an unspecified provider. us Generic Provider HX AMB PROCEDURES Final Result documented in this encounter Visit Diagnoses Not on filedocumented in this encounter Care Teams Varnish Dipper Relationship Specialty Start Date End Date Pcp, No PCP - General General Medicine 12/29/20 01/31/21 Steph Love MD [address] [place] [address] PCP - General Internal Medicine 02/01/21 Elizabeth Garzon MD [address] [place] [address] [place] [address] OBGYN Obstetrics and Gynecology 02/01/21 documented as of this encounter
--- OUTSIDE RECORDS SUMMARY | 2024-11-11 12:19 | XMS_ITS | Encounter Summary ---
Author Organization [facility] Address [address] [place], [place] [address] Care Team Providers Care Chemical Production Engineer Name Role Phone Pcp, No Primary Care Provider UnavailSteph Membreno MD Primary Care Provider +1- [phone] Elizabeth Garzon MD Unavailable [phone] Encounter Details Date Type Department Care Team (Late st Contact Info) Description 11/11/2019 Scanned Document [address] [phone] Provider, Generic Social History Tobacco [...] Description 02/13/2025 11:45 AM EST Office Visit [address] [place] [phone] Steph Love MD [address] [place] [address] [place] [address] documented as of this encounter Procedures Procedure [...] on filedocumented in this encounter Care Teams Chemical Production Engineer Relationship Specialty Start Date End Date Pcp, No PCP - General General Medicine 12/29/20 01/31/21 Steph Love MD [address] [place] [address] PCP - General Internal Medicine 02/01/21 Elizabeth Garzon MD [address] [place] [address] [place] [address] OBGYN Obstetrics and Gynecology 02/01/21 documented as of this encounter
--- OUTSIDE RECORDS SUMMARY | 2024-11-11 12:19 | XMS_ITS | Encounter Summary ---
Author Organization [facility] Address [address] [place] [address] Care Team Providers Care Local Company Refrigerated Truck Driver Name Role Phone Steph Love MD Primary Care Provider [phone]- [phone] Elizabeth Garzon MD Unavailable [phone] Encounter Details Date Type Department Care Team (Late Contact Info) Description 04/03/2024 Scanned Document [facility] PRIMARY CARE SCAN Veronica Rose MD [address] [facility] [place] [address] Social History Tobacco Use Types Packs/Day Years [...] Description 02/13/2025 11:45 AM EST Office Visit [address] [place] [address] [phone] Steph Love MD 100 [facility] [address] [place] [address] documented as of this encounter Visit Diagnoses Not on filedocumented in this encounter Care Teams Local Company Refrigerated Truck Driver Relationship Specialty Start Date End Date Steph Love MD [address] [place] [address] PCP - General Internal Medicine 02/01/21 Elizabeth Garzon MD [address] [place] [address] [place] [address] OBGYN Obstetrics and Gynecology 02/01/21 documented as of this encounter
--- OUTSIDE RECORDS SUMMARY | 2024-11-11 12:19 | XMS_ITS | Encounter Summary ---
Author Organization [facility] Address [address] [place] [address] Care Team Providers Care Turning Machine Set Up Operator Name Role Phone Steph Love MD Primary Care Provider [phone]- [phone] Elizabeth Garzon MD Unavailable Encounter Details Date Type Department Care Team (Late st Contact Info) Description 05/16/2021 Scanned Document [address] [place] [address] [phone] Provider, Generic Social History Tobacco Use Types [...] Description 02/13/2025 11:45 AM EST Office Visit [address] [place] [phone] Steph Love MD [address] [place] [address] [place] [address] documented as of this encounter Procedures Procedure Name Priority Date/Time Associated Diagnosis Comments IMAGING BREAST/BX/MAMMO 05/16/2021 documented in this encounter Results * IMAGING BREAST/BX/MAMMO (05/16/2021) Anatomical Region Laterality Modality Other 05/16/2021 Narrative 05/16/2021 Ordered by an unspecified provider. us Generic Provider IMG LEGACY PROCEDURES Edited Re sult - Final documented in this encounter Visit Diagnoses Not on filedocumented in this encounter Care Teams Turning Machine Set Up Operator Relationship Specialty Start Date End Date Steph Love MD [address] [place] [address] PCP - General Internal Medicine 02/01/21 Elizabeth Garzon MD [address] [place] [address] [place] [address] OBGYN Obstetrics and Gynecology 02/01/21 documented as of this encounter
--- OUTSIDE RECORDS SUMMARY | 2024-11-11 12:19 | XMS_ITS | Encounter Summary ---
Author Organization [facility] Address [address] [place], [place] [address] Care Team Providers Care Missile Pad Mechanic Name Role Phone Steph Love MD Primary Care Provider +1- [phone] Elizabeth Garzon MD Unavailable [phone] Encounter Details Date Type Department Care Team (Late Contact Info) Description 04/07/[address] [facility] PRIMARY CARE SCAN Steph Love MD [address] [place], [place] [phone] Social History Tobacco Use Types Packs/Day Years [...] Description 02/13/2025 11:45 AM EST Office Visit [address] [place] [address] [phone] Steph Love MD [address] [place] [address] [place] [address] documented as of this encounter Visit Diagnoses Not on filedocumented in this encounter Care Teams Missile Pad Mechanic Relationship Specialty Start Date End Date Steph Love MD [address] [place] [address] PCP - General Internal Medicine 02/01/21 Elizabeth Garzon MD [address] [place] [address] [place] [address] OBGYN Obstetrics and Gynecology 02/01/21 documented as of this encounter
--- OUTSIDE RECORDS SUMMARY | 2024-11-11 12:20 | XMS_ITS | Encounter Summary ---
Author Organization [facility] Address [address] [place] [address] Care Team Providers Care Lead Electrician Name Role Phone Pcp, No Primary Care Provider Unavailanalisa e Steph Love MD Primary Care Provider +- [phone] lEizabeth Garzon MD Unavailable [phone] Encounter Details Date Type Department Care Team (Late st Contact Info) Description 02/18/2020 Scanned Document [address] [phone] Provider, Generic Social History Tobacco Use Types [...] 02/13/2025 11:45 AM EST Office Visit [address] [phone] Steph Love MD [address] [place] [address] documented as of this encounter Visit Diagnoses Not on filedocumented in this encounter Care Teams Lead Electrician Relationship Specialty Start Date End Date Pcp, No PCP - General General Medicine 12/29/20 01/31/21 Steph Love MD [address] [place] [address] PCP - General Internal Medicine 02/01/21 Elizabeth Garzon MD [address] [place] [address] [place] [address] OBGYN Obstetrics and Gynecology 02/01/21 documented as of this encounter
--- OUTSIDE RECORDS SUMMARY | 2024-11-11 12:20 | XMS_ITS | Encounter Summary ---
Author Organization [facility] Address [address] [place], [place] [address] Care Team Providers Care Cleaning Supervisor Name Role Phone Pcp, No Primary Care Provider Unavailanalisa e Steph Love MD Primary Care Provider +- [phone] Elizabeth Garzon MD Unavailable [phone] Encounter Details Date Type Department Care Team (Late st Contact Info) Description 03/23/2020 Scanned Document [address] [phone] Provider, Generic Social History Tobacco Use Types [...] Description 02/13/2025 11:45 AM EST Office Visit [address] [phone] Steph Love MD [address] [place] [address] documented as of this encounter Visit Diagnoses Not on filedocumented in this encounter Care Teams Cleaning Supervisor Relationship Specialty Start Date End Date Pcp, No PCP - General General Medicine 12/29/20 01/31/21 Steph Love MD [address] [place] [address] PCP - General Internal Medicine 02/01/21 Elizabeth Garzon MD [address] [place] [address] [place] [address] OBGYN Obstetrics and Gynecology 02/01/21 documented as of this encounter
--- OUTSIDE RECORDS SUMMARY | 2024-11-11 12:20 | XMS_ITS | Encounter Summary ---
Author Organization [facility] Address [address] [place], [place] [address] Care Team Providers Care Company Pilot Name Role Phone Pcp, No Primary Care Provider Unavailanalisa e Steph Love MD Primary Care Provider +- [phone] Elizabeth Garzon MD Unavailable [phone] Encounter Details Date Type Department Care Team (Late st Contact Info) Description 06/09/2020 Scanned Document [address] [phone] Provider, Generic Social History Tobacco Use Types [...] Description 02/13/2025 11:45 AM EST Office Visit [address] [phone] Steph Love MD [address] [place] [address] documented as of this encounter Visit Diagnoses Not on filedocumented in this encounter Care Teams Company Pilot Relationship Specialty Start Date End Date Pcp, No PCP - General General Medicine 12/29/20 01/31/21 Steph Love MD [address] [place] [address] PCP - General Internal Medicine 02/01/21 Elizabeth Garzon MD [address] [place] [address] [place] [address] OBGYN Obstetrics and Gynecology 02/01/21 documented as of this encounter
--- OUTSIDE RECORDS SUMMARY | 2024-11-11 12:20 | XMS_ITS | Encounter Summary ---
Author Organization [facility] Address [address] [place], [place] [address] Care Team Providers Care Visual And Stock Associate Name Role Phone Pcp, No Primary Care Provider UnavailSteph Membreno MD Primary Care Provider +1- [phone] Elizabeth Garzon MD Unavailable [phone] Encounter Details Date Type Department Care Team (Late st Contact Info) Description 03/08/2020 Scanned Document [address] [phone] Pain Management, Scan Social History Tobacco Use [...] 02/13/2025 11:45 AM EST Office Visit [address] [phone] Steph Love MD [address] [address] documented as of this encounter Visit Diagnoses Not on filedocumented in this encounter Care Teams Visual And Stock Associate Relationship Specialty Start Date End Date Pcp, No PCP - General General Medicine 12/29/20 01/31/21 Steph Love MD [address] [place] [address] PCP - General Internal Medicine 02/01/21 Elizabeth Garzon MD [address] [place] [address] [place] [address] OBGYN Obstetrics and Gynecology 02/01/21 documented as of this encounter
--- OUTSIDE RECORDS SUMMARY | 2024-11-11 12:20 | XMS_ITS | Encounter Summary ---
Author Organization [facility] Address [address] [place] [address] Care Team Providers Care Band Saw Filer Name Role Phone Pcp, No Primary Care Provider Unavailanalisa e Steph Love MD Primary Care Provider +- [phone] Elizabeth Garzon MD Unavailable [phone] Encounter Details Date Type Department Care Team (Late st Contact Info) Description 02/13/2020 Scanned Document [address] [phone] Provider, Generic Social History Tobacco Use Types [...] Description 02/13/2025 11:45 AM EST Office Visit [address] [phone] Steph Love MD [address] [place] [address] documented as of this encounter Procedures Procedure Name Priority Date/Time Associated Diagnosis Comments EMG 02/13/2020 documented in this encounter Results * EMG (02/13/2020) Narrative 02/13/2020 Ordered by an unspecified provider. us Generic Provider NEUROLOGY ORDERABLES Final Resu lt documented in this encounter Visit Diagnoses Not on filedocumented in this encounter Care Teams Band Saw Filer Relationship Specialty Start Date End Date Pcp, No PCP - General General Medicine 12/29/20 01/31/21 Steph Love MD [address] [place] [address] PCP - General Internal Medicine 02/01/21 Elizabeth Garzon MD [address] [place] [address] [place] [address] OBGYN Obstetrics and Gynecology 02/01/21 documented as of this encounter
--- OUTSIDE RECORDS SUMMARY | 2024-11-11 12:20 | XMS_ITS | Encounter Summary ---
Author Organization [facility] Address [address] [place] [address] Care Team Providers Care Sulky Driver Name Role Phone Steph Love MD Primary Care Provider +1- [phone] Elizabeth Garzon MD Unavailable [phone] Encounter Details Date Type Department Care Team (Late Contact Info) Description 07/13/2022 Scanned Document [facility] CARDIOLOGY SCAN Cardiology, Scan Social [...] Description 02/13/2025 11:45 AM EST Office Visit [address] [place] [phone] Steph Love MD [address] [place] [address] documented as of this encounter Visit Diagnoses Not on filedocumented in this encounter Care Teams Sulky Driver Relationship Specialty Start Date End Date Steph Love MD [address] [place] [address] PCP - General Internal Medicine 02/01/21 Elizabeth Garzon MD [address] [place] [address] [place] [address] OBGYN Obstetrics and Gynecology 02/01/21 documented as of this encounter
--- OUTSIDE RECORDS SUMMARY | 2024-11-11 12:20 | XMS_ITS | Encounter Summary ---
Author Organization Formerly [facility] Address [address] [place] [address] Care Team Providers Care Security Police Name Role Phone Steph Love MD Primary Care Provider [phone]- [phone] Elizabeth Garzon MD Unavailable [phone] Encounter Details Date Type Department Care Team (Late Contact Info) Description 08/07/[address] [facility] CARDIOLOGY SCAN Cardiology, Scan Social History [...] Description 02/13/2025 11:45 AM EST Office Visit [address] [place] [phone] Steph Love MD [address] [place] [address] documented as of this encounter Visit Diagnoses Not on filedocumented in this encounter Care Teams Security Police Relationship Specialty Start Date End Date Steph Love MD [address] [place] [address] PCP - General Internal Medicine 02/01/21 Elizabeth Garzon MD [address] [place] [address] [place] [address] OBGYN Obstetrics and Gynecology 02/01/21 documented as of this encounter
--- OUTSIDE RECORDS SUMMARY | 2024-11-11 12:20 | XMS_ITS | Encounter Summary ---
Author Organization [facility], Located [facility] Address [address] [place] [address] Care Team Providers Care Supervisor Pumping Name Role Phone Steph Love MD Primary Care Provider [phone] Elizabeth Garzon MD Unavailable [phone] Reason for Visit * Reason Comments Medication Refill Encounter Details Date Type Department Care Team (Late Contact Info) Description 10/11/[address] [phone] Cheyenne Aguilera, IRENE [address] [address] Environmental allergies Social History Tobacco Use Types [...] 02/13/2025 11:45 AM EST Office Visit [address] [phone] Steph Love MD [address] [place] [address] documented as of this encounter Visit Diagnoses Diagnosis Environmental allergies Other allergy, other than to medicinal agents documented in this encounter Care Teams Supervisor Pumping Relationship Specialty Start Date End Date Steph Love MD [address] [place] [address] PCP - General Internal Medicine 02/01/21 Elizabeth Garzon MD [address] [place] [address] [place] [address] OBGYN Obstetrics and Gynecology 02/01/21 documented as of this encounter
--- OUTSIDE RECORDS SUMMARY | 2024-11-11 12:20 | XMS_ITS | Encounter Summary ---
Author Organization Formerly [facility] Address [address] [place], [place] [id number] Care Team Providers Care Cytology Supervisor Name Role Phone Pcp, No Primary Care Provider UnavailSteph Membreno MD Primary Care Provider [phone] Elizabeth Garzon MD Unavailable [phone] Encounter Details Date Type Department Care Team (Late st Contact Info) Description 03/15/2020 Scanned Document [address] [phone] Pain Management, Scan Social History Tobacco Use [...] 02/13/2025 11:45 AM EST Office Visit [address] [phone] Steph Love MD [address] [address] documented as of this encounter Visit Diagnoses Not on filedocumented in this encounter Care Teams Cytology Supervisor Relationship Specialty Start Date End Date Pcp, No PCP - General General Medicine 12/29/20 01/31/21 Steph Love MD [address] [place] [address] PCP - General Internal Medicine 02/01/21 Elizabeth Garzon MD [address] [place] [address] [place] [address] OBGYN Obstetrics and Gynecology 02/01/21 documented as of this encounter
--- OUTSIDE RECORDS SUMMARY | 2024-11-11 12:20 | XMS_ITS | Encounter Summary ---
Author Organization [facility] Address [address] [place] [address] Care Team Providers Care Atm Servicer Name Role Phone Steph Love MD Primary Care Provider [phone] Elizabeth Garzon MD Unavailable [phone] Encounter Details Date Type Department Care Team (Late st Contact Info) Description 11/21/[address] [phone] Steph Love MD [address] [place] [address] [place] [address] Social History Tobacco Use Types Packs/Day Years [...] Description 02/13/2025 11:45 AM EST Office Visit [facility] [address] [place] [address] Steph Love MD [address] [place] [address] documented as of this encounter Visit Diagnoses Not on filedocumented in this encounter Care Teams Atm Servicer Relationship Specialty Start Date End Date Steph Love MD [address] [place] [address] PCP - General Internal Medicine 02/01/21 Elizabeth Garzon MD [address] [place] [address] [place] [address] OBGYN Obstetrics and Gynecology 02/01/21 documented as of this encounter
--- OUTSIDE RECORDS SUMMARY | 2024-11-11 12:20 | XMS_ITS | Encounter Summary ---
Author Organization [facility] Address [address] [place], [place] [id number] Care Team Providers Care Scientific Diver Name Role Phone Pcp, No Primary Care Provider UnavailSteph Membreno MD Primary Care Provider [phone]- [phone] Elizabeth Garzon MD Unavailable [phone] Encounter Details Date Type Department Care Team (Late st Contact Info) Description 10/05/2020 Scanned Document [address] [phone] Provider, Generic Social History Tobacco Use Types [...] 02/13/2025 11:45 AM EST Office Visit [address] [phone] Steph Love MD [address] [place] [address] documented as of this encounter Procedures Procedure [...] on filedocumented in this encounter Care Teams Scientific Diver Relationship Specialty Start Date End Date Pcp, No PCP - General General Medicine 12/29/20 01/31/21 Steph Love MD [address] [place] [address] PCP - General Internal Medicine 02/01/21 Elizabeth Garzon MD [address] [place] [address] [place] [address] OBGYN Obstetrics and Gynecology 02/01/21 documented as of this encounter
--- OUTSIDE RECORDS SUMMARY | 2024-11-11 12:20 | XMS_ITS | Encounter Summary ---
Author Organization [facility] Address [address] [place] [address] Care Team Providers Care Physician Chief Of Pathology Name Role Phone Pcp, No Primary Care Provider Unavailanalisa e Steph Love MD Primary Care Provider +- [phone] Elizabeth Garzon MD Unavailable [phone] Encounter Details Date Type Department Care Team (Late st Contact Info) Description 01/16/2020 Scanned Document [address] [phone] Pain Management, Scan Social History Tobacco Use [...] Description 02/13/2025 11:45 AM EST Office Visit [address] [phone] Steph Love MD [address] [address] documented as of this encounter Visit Diagnoses Not on filedocumented in this encounter Care Teams Physician Chief Of Pathology Relationship Specialty Start Date End Date Pcp, No PCP - General General Medicine 12/29/20 01/31/21 Steph Love MD [address] [place] [address] PCP - General Internal Medicine 02/01/21 Elizabeth Garzon MD [address] [place] [address] [place] [address] OBGYN Obstetrics and Gynecology 02/01/21 documented as of this encounter
--- OUTSIDE RECORDS SUMMARY | 2024-11-11 12:20 | XMS_ITS | Encounter Summary ---
Author Organization [facility] Address [address] [place], [place] [id number] Care Team Providers Care Custom Marine Canvas Fabricator Name Role Phone Pcp, No Primary Care Provider Unavailanalisa e Steph Love MD Primary Care Provider [phone]- [phone] Elizabeth Garzon MD Unavailable [phone] Encounter Details Date Type Department Care Team (Late st Contact Info) Description 08/09/2020 Scanned Document [address] [phone] Provider, Generic Social History Tobacco Use Types [...] Description 02/13/2025 11:45 AM EST Office Visit [address] [phone] Steph Love MD [address] [place] [address] documented as of this encounter Visit Diagnoses Not on filedocumented in this encounter Care Teams Custom Marine Canvas Fabricator Relationship Specialty Start Date End Date Pcp, No PCP - General General Medicine 12/29/20 01/31/21 Steph Love MD [address] [place] [address] PCP - General Internal Medicine 02/01/21 Elizabeth Garzon MD [address] [place] [address] [place] [address] OBGYN Obstetrics and Gynecology 02/01/21 documented as of this encounter
== END 2024-11-11 11:15 | disposition home or self-care (01) ==
LOC: HO.HUSH 10:29
PROVIDERS: PCP Internal Medicine; Visit Provider Nurse Practitioner Family
DX: R10.9 Unspecified abdominal pain (principal); N20.0 Calculus of kidney; Z13.9 Encounter for screening, unspecified
CPT/HCPCS: 99213

== ENCOUNTER → 2024-11-11 10:29 | Outpatient (BNVA) | payer BC, SELFPAY | PROVIDERS: PCP Internal Medicine; Visit Provider Nurse Practitioner Family | DX: R10.9 Unspecified abdominal pain (principal); N20.0 Calculus of kidney | CPT/HCPCS: 81003 ==

== ENCOUNTER 2025-02-10 08:46 | Outpatient (AMB) | payer BC, SELFPAY ==
--- NOTE | 2025-02-10 08:51 | A.OFFVIS_ITS ---
Intake Visit Reasons: 3m/Litholink/UA Intake Note: Patient is present for 3M/LITHOLINK/UA LITHOLINK:02/02/25 Urology Medication:NONE Antibiotic Allergy:NONE Blood Thinner:NONE Algebra Tutor Required: No Allergies coconut Allergy (Intermediate, Verified 02/10/25 10:13) DIFFICULTY BREATHING/HIVES coconut Allergy (Unknown, Uncoded 02/10/25 10:13) Unknown Medication List - Last Reconciled 02/10/25 by RONDA Garza- albuterol sulfate 90 mcg/actuation inhalation atorvastatin 10 mg PO DAILY lisinopril 10 mg PO DAILY montelukast mg PO DAILY sertraline 100 mg PO DAILY tirzepatide (Mounjaro) mg subcut HPI Comments Details: Tiny is a pleasant 45-year-old female patient of Dr. Love who was accompanied by her significant other at today's office visit. She presents to the office today for follow-up of her nephrolithiasis. In discussion with the patient today she reports to be doing and feeling well. She discusses her intentional weight loss journey with GLP 1. She discusses since her last office visit here she believes increase calcium levels noted with collection of previous Litholink could have potentially been related to increase in her Hebrew yogurt. She reports having started a new diet and believes this could have been contributing. She reports she has since decreased her consumption of Hebrew yogurt. She discusses her busy lifestyle has a parent, full-time worker, and attempting to live a healthier lifestyle. Most recent Litholink results were reviewed with the patient today we discussed 24 hour urine Litholink 01/27 noted urine volume remains borderline low. We discussed clinical goal of 2-2.5 L per day. Urine calcium has fallen but still remains elevated was 409 and now 320 mg/d. The decrease can not be ascribed to lower sodium was 287 and now 250 mmol/d. Urine sodium is high we did discuss reduction of dietary sodium. We discussed dietary modifications verses adding thiazide diuretic. She would like to continue with lifestyle modifications. Previous imaging renal ultrasound 10/27 bilateral kidneys are normal in size and echotexture. No hydronephrosis noted bilaterally. Right kidney with 4 mm, 5 mm, and 3 mm nonobstructing stone s. Left kidney with 5 mm, 6 mm, 6 mm, and 7 mm nonobstructing renal calculi per radiology report. We did discussed increase in stone burden. She does report she is drinking plenty of water daily. In office urinalysis results reviewed with the patient today. She also reports adding 1 oz of lemon juice to water daily. She denies urinary urgency, incontinence, nocturia, hematuria, dysuria, foul smelling urine, changes to urinary stream, fever, and or chills. We discussed metabolic workup. All questions were answered. She otherwise offers no other issues or concerns at time. [facility] Medical History Hydronephrosis with ureteropelvic junction (UPJ) obstruction Surgical History H/O: hysterectomy History of surgery Review of Systems Const Reports as per HPI Eyes Reports no additional complaints ENT Reports no additional complaints Card Reports no additional complaints Resp Reports no additional complaints GI Reports as per HPI Reports as per HPI Musc Reports no additional complaints Neuro Reports no additional complaints Psych Reports no additional complaints Endo Reports no additional complaints Ghulam/Lymph Reports no additional complaints Aller/Immun Reports no additional complaints Physical Exam Const General: cooperative, healthy appearing, comfortable, no acute distress, well developed, alert and awake Nutritional Appearance: overweight Orientation/consciousness: patient oriented x3 Limitations: no limitations HEENT Head: Yes normal to inspection, Yes normocephalic and Yes atraumatic Ears: hearing grossly normal bilaterally Neck Neck: Yes normal visual inspection and Yes trachea midline Chest Chest palpation & inspection: normal inspection of the chest Resp Effort & Inspection: normal respiratory effort and able to speak in complete sentences Cardio Rate: regular rate General: Yes no CVA tenderness Back/Spine/Pelvis Back: no CVA tenderness Neuro General: patient oriented x3 Extrem General: Yes normal to inspection Psych Appearance: grossly normal and well kempt Mental Status: mental status grossly normal Speech and movement: Normal speech and movement present and Clear speech present Affect: normal affect Attitude: cooperative Thought process: Normal thought process present Thought content: Normal thought content present Insight: Fair insight present (Psych) Judgement: Fair judgement present (Psych) Results AMB Urinalysis, Automated UA Leukoctes 0 Familia/uL Last Edit by MARY Peterson on 02/10/25 09:04 UA Nitrite Negative Last Edit by MARY Peterson on 02/10/25 09:04 UA Urobilinogen 0.2 mg/dL Last Edit by MARY Peterson on 02/10/25 09:0 4 UA Protein 15 mg/dL Last Edit by MARY Peterson on 02/10/25 09:04 UA pH 6.0 Last Edit by MARY Peterson on 02/10/25 09:04 UA Blood 10 Talon/uL Last Edit by Isatu Ley CCM on 02/10/25 09:04 UA Specific Gilman 1.025 Last Edit by MARY Peterson on 02/10/25 09: 04 UA Ketone Negative Last Edit by MARY Peterson on 02/10/25 09:04 UA Bilirubin 0 mg/dL Last Edit by Isatu Ley CCM on 02/10/25 09:04 UA Glucose 0 mg/dL Last Edit by Isatu Ley [facility] on 02/10/25 09:04 Results Reviewed Results Reviewed: Laboratory Last Values Urine pH (Auto) 6.0 02/10/25 08:56 Specific Gilman (Auto) 1.025 02/10/25 08:56 Urine Protein (Auto) 15 mg/dL 02/10/25 08:56 Glucose (UA)(Auto) 0 mg/dL 02/10/25 08:56 Urine Ketones (Auto) Negative 02/10/25 08:56 Urine Blood (Auto) 10 Talon/uL 02/10/25 08:56 Urine Nitrite (Auto) Negative 02/10/25 08:56 Urine Bilirubin (Auto) 0 mg/dL 02/10/25 08:56 Urine Urobilinogen (Auto) 0.2 mg/dL 02/10/25 08:56 Leukocyte Esterase (Auto) 0 Familia/uL 02/10/25 08:56 Assessment & Plan Assessment & Plan (1) Nephrolithiasis: Code(s): N20.0 - Calculus of kidney Category: Medical Plan In office urinalysis results reviewed with the patient today; as noted above. Most recent Litholink results reviewed with the patient today; as noted above. We did discuss lifestyle modifications verses initiation of thiazide diuretic. We discussed the importance of adequate hydration relation to nephrolithiasis as well as overall health and well-being. She currently denies any bothersome urinary issues. She reports be happy with current voiding parameters. Will obtain renal ultrasound and repeat Litholink in 3-6 months. Follow-up in 3-6 months with imaging and Litholink; or sooner with any issues, concerns, and or questions. Orders: Orders URORISK 3 Months N20.0 - Calculus of kidney AMB Urinalysis Automated Today Z13.9 - Encounter for screening, unspecified Urine Cytology Today R31.29 - Other microscopic hematuria US renal BI 3 Months N20.0 - Calculus of kidney Patient Instructions: The patient had an opportunity to ask questions regarding the treatment plan. All questions were answered. Physical exam, labs, and imaging were discussed and reviewed in detail. As well as risks, benefits, and discussion of treatment choices. No major barriers to understanding were identified. The patient expressed understanding and agreement with the above treatment plan. The patient was made aware they should contact our office by phone for worsening of their current condition, the appearance of new symptoms, or with any questions or concerns. Compliance is encouraged with any medications and follow up testing that is ordered. It is a privilege to be allowed the opportunity to participate in? your urological care.? Again, if you have any questions or concerns If you have any questions or concerns please do not hesitate to contact me. The office is [phone]. This note is constructed using voice recognition software. While every effort has been made to ensure accuracy passenger car inspector errors may have been included. Yours sincerely, ISABELL Garza Coding Level of Care Code Est Pt Level 3 (52037) Complex visit Add On G2211 Diagnoses Nephrolithiasis N20.0
== END 2025-02-10 09:37 | disposition home or self-care (01) ==
LOC: HO.HUSH 08:47
PROVIDERS: PCP Internal Medicine; Visit Provider Nurse Practitioner Family
DX: N20.0 Calculus of kidney (principal); Z13.9 Encounter for screening, unspecified
CPT/HCPCS: 99213

== ENCOUNTER 2025-02-10 08:46 | Outpatient (REF) | payer BC, SELFPAY | END 2025-02-10 08:47 | disposition home or self-care (01) | LOC: HO.LAB 08:46 | PROVIDERS: PCP Internal Medicine; Visit Provider Nurse Practitioner Family | DX: N20.0 Calculus of kidney (principal); R31.29 Other microscopic hematuria; Z13.89 Encounter for screening for other disorder | CPT/HCPCS: 81003; 88112 ==